=== PATIENT | female | born 1995 | race Caucasian/White ===

== ENCOUNTER 2022-01-21 11:34 | Outpatient (CLI) | payer OTHER, SELFPAY ==
--- NOTE | ~2022-01-21 | US_ITS ---
EXAMINATION: US breast LT limited, US breast RT complete HISTORY: Palpable lump of the lower-outer quadrant of the left breast and diffuse cystic mastopathy o f the right breast. TECHNIQUE: Limited left breast ultrasound is performed in the lower outer quadrant and complete right breast ultrasound including all four quadrants and the subareolar right breast is also performed. FINDINGS: There is a 7 mm x 3 mm oval, circumscribed, parallel, hypoechoic mass with no posterior fea tures or internal vascularity at the 5:00 location of the left breast near the nipple corresponding t o the palpable abnormality of concern. No suspicious cystic or solid mass is identified in the right breast. IMPRESSION: 1. Probably benign left breast mass. Follow-up targeted left breast ultrasound in six months is recom mended. 2. No specific sonographic correlate is identified for the reported patient's right breast pain. Furt her evaluation at this time should be based on clinical assessment. Continued follow-up physical exam ination is recommended. BI-RADS category 3, probably benign findings. Reviewed, dictated and finalized at location A. IMPRESSION: 1. Probably benign left breast mass. Follow-up targeted left breast ultrasound in six months is recommended. 2. No specific sonographic correlate is identified for the reported patient's r ight breast pain. Further evaluation at this time should be based on clinical a ssessment. Continued follow-up physical examination is recommended. BI-RADS category 3, probably benign findings.
== END 2022-01-21 11:35 | disposition home or self-care (01) ==
LOC: ANHIMG 11:37
PROVIDERS: PCP Family Medicine; Visit Provider Nurse Practitioner Obstetrics & Gynecology
DX: N60.11 Diffuse cystic mastopathy of right breast (principal); N63.23 Unspecified lump in the left breast, lower outer quadrant
CPT/HCPCS: 76641; 76642

== ENCOUNTER 2022-06-16 08:15 | Outpatient (RCR) | payer OTHER, SELFPAY ==
--- NOTE | 2022-05-28 16:13 | PTOPEVAL ---
PHYSICAL THERAPY EVALUATION AND PLAN OF CARE Thank you for referring Fani Helms to [facility].? The patient is scheduled to be seen for therapy 2-3X/month for 2months. Please review, sign, date and return this plan of care JERRY. I agree with and certify that the following plan of care is medically necessary. Referring Physician Date Attending Provider: Ana María Streeter, [employer] Diagnosis incontinence, pain with intercourse Onset 3 years Subjective Information pain with intercourse with Query Text:As Reported By Patient/ penetration: pain with periods Family of in the perineum and rectum with her last period but otherwise generally just cramps in back and lower abdomen. states that with penetration she feels like her cervix is being pushed up and there is just a general shooting pain. There is no pain when she is in control and on top. She reports that when her partner has control and is on top or is in doggy style there is a significant amount of pain. Pain is not generally on one side or the other. has history of right labral tear in hip. non-surgical Self Report Pain Assessment Back Reported Pain Level 5 Pain Description Aching Pain Frequency Chronic,Continuous Pain Aggravating Factors Walking,Weight Bearing/ Standing Pain Score Pain Score 5: Self Report Interventions Used Interventions Used By Clinicians Mobilization,Manual Therapy Techniques Lower Extremity Range of Motion General Lower Extremity Range of Motion Gross Lower Extremity Range of Motion positive AMNA bilaterally Comments with right worse than left Lower Extremity Muscle Strength Testing Hip Strength Right Hip Flexion Strength 4- Good - Hip Abduction Strength 4+ Good + Hip Medial Rotation Strength 4 Good Hip Lateral Rotation Strength 4- Good - Left Hip Flexion Strength 5 Normal Hip Abduction Strength 5 Normal Hip Medial Rotation Strength 5 Normal Hip Lateral Rotation Strength 5 Normal Knee Strength Bilateral Knee Flexion Strength 5 Normal Knee Extension Strength 5 Normal Muscle Length Testing Muscle Length Testing Piriformis w/Hip Flexion >9
--- NOTE | 2022-06-16 09:51 | PTOPEVAL ---
PHYSICAL THERAPY DISCHARGE NOTE Thank you for referring Fani Hlems to [facility]. Please review, sign, date and return this plan of care JERRY. I agree with and certify that the following plan of care is medically necessary. Referring Physician Date Attending Provider: Ana María Streeter, [employer] Diagnosis incontinence, pain with intercourse Onset 3 years Subjective Information states that overall she is Query Text:As Reported By Patient/ feeling better. States she is Family leaking less and requiring less underwear changes. States that she finds she does not leak when picking up something from the floor and she is able to contract pelvic floor quickly enough to decrease/ stop leakage while sneezing. States that pain with intercourse has decreased stating that initial penetration is not always painful. Does experience some pain with repetition or over time, but does believe the symptoms to be reduced. Self Report Pain Assessment Back Reported Pain Level 2 Pain Description Aching Lower Extremity Range of Motion General Lower Extremity Range of Motion Gross Lower Extremity Range of Motion positive AMNA bilaterally Comments with right worse than left Lower Extremity Muscle Strength Testing Hip Strength Right Hip Flexion Strength 4+ Good + Hip Abduction Strength 4+ Good + Hip Medial Rotation Strength 5 Normal Hip Lateral Rotation Strength 4 Good Left Hip Flexion Strength 5 Normal Hip Abduction Strength 5 Normal Hip Medial Rotation Strength 5 Normal Hip Lateral Rotation Strength 5 Normal Knee Strength Bilateral Knee Flexion Strength 5 Normal Knee Extension Strength 5 Normal Muscle Length Testing Muscle Length Testing Piriformis w/Hip Flexion >90 Degrees (R) Moderate Tightness,(L) Moderate Tightness Palpation Assessment Palpation Palpation improved overall tissue quality with decreased sensitivity; PT Clinical Summary Fani is a 26 yo female presenting to outpatient physical therapy with c/o pain with intercourse and mixed urinary incontinence. After
== END 2022-08-11 10:19 | disposition home or self-care (01) ==
LOC: ANHPT 08:15
PROVIDERS: PCP Family Medicine; Visit Provider Nurse Practitioner
DX: N94.10 Unspecified dyspareunia (principal)
CPT/HCPCS: 97110; 97112; 97163

== ENCOUNTER 2025-04-20 00:22 | Emergency (ER) | payer BC, MEDICAID, SELFPAY ==
--- NOTE | ~2025-04-20 | XR_ITS ---
Right Knee Technique: AP, lateral, and oblique views were obtained. Clinical History: Pain Findings: No fracture or dislocation is seen. Osseous alignment is anatomic. Joint spaces are preserv ed without degenerative or erosive change. Soft tissues are unremarkable. No joint effusion is seen. Impression: Unremarkable right knee radiographs. Reviewed, dictated and finalized at location . Impression: Unremarkable right knee radiographs.
--- OUTSIDE RECORDS SUMMARY | 2025-04-20 00:25 | XMS_ITS | Continuity of Care Document ---
Author Name [facility] Organization [facility] Care Team Providers Care Marriage And Family Teacher Name Role Phone [facility] Unavailable Unavailable Problems Combined list of problems from Department of Defense and Veterans Affairs facilities. It does not include entries that were removed or entered in error. Problem Status Onset Date Problem Type Date of Resolution Comments Source Adjustment disorder with mixed anxiety and depressed mood Active Condition [facility] Anxiety ([facility] [id number]) Active Condition [facility] Contraception status Active Condition Jan 18, 2025 Entered By: LAILA COHEN Comment: paragard 11/2024 [facility] Hip pain Active Condition [facility] Low Back Pain (SCT 417802304) Active Condition [facility] Migraine with Aura (SCT 2439697) Active Condition [facility] Pain of breast Active Condition [facility] Tinnitus ([facility] [id number]) Active Condition [facility] Episodic tension-type headache, not intractable Active Condition [facility] control method - contraceptive vaginal ring Active Condition [facility] BREAST LUMP OR MASS RIGHT Active Condition [facility] BURSITIS TROCHANTERIC Active Condition [facility] SNAPPING HIP SYNDROME Active Condition [facility] visit for: issue repeat prescription Inactive Condition [facility] Need For Vaccination Poliomyelitis Inactivated Inactive Condition [facility] Need For Vaccination Yellow Fever Inactive Condition [facility] Need For Vaccination MMR Inactive Condition [facility] Vaccines Prophylactic Need Against Influenza Inactive Condition [facility] MULTIPLE BLISTERS Inactive Condition [facility] visit for: laboratory Inactive Condition [facility] Gynecologic Services Contraceptive General Counseling Active Condition [facility] Patient Counseling: Inquiry & Counseling Active Condition [facility] visit for: new patient eye exam Inactive Condition [facility] Vaccines Prophylactic Need Against Combinations Of Diseases Inactive Condition [facility] visit for: screening exam pulmonary tuberculosis Inactive Condition [facility] Vaccines Prophylactic Need Against Bacterial Diseases Meningococcal Inactive Condition [facility] Vaccines Prophylactic Need Against Viral Diseases Inactive Condition [facility] Need For Vaccination Hepatitis A And Hepatitis B Inactive Condition [facility] Need For Prophylactic Antibiotics Inactive Condition [facility] Diagnosis: ICD-10-CM F41.9 Anxiety disorder, unspecified Active Diagnosis [facility] Diagnosis: ICD-10-CM G43.109 Migraine with aura, not intractable, w/o status migrainosus Active Diagnosis [facility] Diagnosis: ICD-10-CM F41.1 Generalized anxiety disorder Active Diagnosis [facility] Diagnosis: ICD-10-CM F43.23 Adjustment disorder with mixed anxiety and depressed mood Active Diagnosis [facility] Medications Combined list of outpatient medications from Department of Defense and [facility] Affairs facilities.Medications provided include 1) outpatient medications from the last 15 months, and 2) patient-reported medications. Medication Details Route Status Patient Instructions Prescription Expires Prescription Number Last Dispense Date Ordering Provider Order Date Order Qty Source busPIRone (U/D) 15 MG ORAL TAB TAKE ONE-HALF TABLET BY MOUTH THREE TIMES A DAY NEEDED DO NOT TAKE WITH GRAPEFRU IT JUICE. Active 04/22/2025 [id number] LETICIA WEIR 2023 45 [facility] BUSPIRONE HCL 15MG TAB TAKE ONE-HALF TABLET BY MOUTH THREE TIMES A DAY NEEDED DO NOT TAKE WITH GRAPEFRU IT JUICE. ORAL DISCONT INUED BY PROVIDE R 04/22/2025 [id number] 4 CICI WEIR 2023 45 [facility] FLUoxetine (U/D) 10 MG ORAL CAP TAKE THREE CAPSULES BY MOUTH ONCE A DAY Active 04/22/2025 [id number] LETICIA WEIR 2023 90 [facility] FLUOXETINE HCL 10MG CAP TAKE THREE CAPSULES BY MOUTH ONCE A DAY ORAL DISCONT INUED BY PROVIDE R 04/22/2025 [id number] CICI WEIR DESTIN 2023 90 [facility] MAGNESIUM OXIDE 400MG TAB TAKE ONE TABLET BY MOUTH ONCE A DAY FOR MIGRAINE PREVENTI ON ORAL DISCONT INUED BY PROVIDE R 08/11/2025 [id number] 4 GEOVANI MCDUFFIE 2023 120 [facility] TRAZODONE HCL 50MG TAB TAKE ONE-HALF TABLET BY MOUTH AT BEDTIME FOR INSOMNIA ORAL DISCONT INUED BY PROVIDE R 04/22/2025 [id number] 4 URVASHI-CICI IRWIN DESTIN 2023 15 [facility] Trazodone Hydrochlori de (Desyrel Eq.) Tablet 50 mg Oral TAKE ONE-HALF TABLET BY MOUTH AT BEDTIME FOR INSOMNIA Active 04/22/2025 [id number] 4 BERTOADEBO-LETICIA IRWIN DESTIN 2023 15 [facility] VENLAFAXINE HCL 37.5MG 24HR CAP,SA TAKE ONE CAPSULE BY MOUTH ONCE A DAY FOR 7 DAYS, THEN TAKE TWO CAPSULES ONCE A DAY WITH FOOD. DO NOT ABRUPTLY DISCONTI NUE MEDICATI ON. ORAL DISCONT INUED (EDIT) 03/08/2025 [id number] 5 GEOVANI MCDUFFIE 2024 173 [facility] VENLAFAXINE HCL 75MG 24HR CAP,SA TAKE ONE CAPSULE BY MOUTH ONCE A DAY FOR MIGRAINE PREVENTI ON WITH FOOD. DO NOT ABRUPTLY DISCONTI NUE MEDICATI ON. ORAL ACTIVE 02/14/2026 [id number] 5 GEOVANI MCDUFFIE 2024 90 [facility] ZOLMITRIPTA N 2.5MG TAB,PACKAGE ,6 TAKE TWO TABLETS BY MOUTH ONE-TIME FOR MIGRAINE HEADACHE TAKE AT ONSET OF HEADACHE ; MAY REPEAT IN 2 HRS IF NEEDED (DO NOT EXCEED 10MG IN 24 HOUR PERIOD) ORAL ACTIVE 08/11/2025 [id number] 4 GEOVANI MCDUFFIE 2023 2 [facility] Allergies, Adverse Reactions, Alerts Combined list of allergies from Department of Defense and Veterans Affairs facilities. It does not include entries that were removed or entered in error. Substance Category Reaction Severity Reaction type Status Date Reported Comments Source No Known Allergies Drug allergy (disorder) active 06/10/2016 [facility] [place] Immunizations Combined list of available immunizations from the Department of Defense and Veterans Affairs facilities. Immunization Series Date Given Administered By Site Reaction Lot Number CVX Code Drug Lifeguard Status Comments Source INFLUENZA, UNSPECIFIED FORMULATION 1 2023 88 complet ed HISTORICA L INFORMATI ON - FROM OTHER [facility], [facility] INFLUENZA, INJECTABLE, QUADRIVALENT, PRESERVATIVE FREE 2 2020 150 complet ed HISTORICA L INFORMATI ON - FROM OTHER [facility], [facility] INFLUENZA, UNSPECIFIED FORMULATION 1 2020 88 complet ed HISTORICA L INFORMATI ON - FROM OTHER [facility], [facility] INFLUENZA, INJECTABLE, QUADRIVALENT, PRESERVATIVE FREE 2020 150 complet ed [facility] COVID-19 (MODERNA), MRNA, LNP-S, PF, 100 MCG/0.5 ML DOSE 2 2020 207 complet ed [facility] COVID-19 (MODERNA), MRNA, LNP-S, PF, 100 MCG/0.5 ML DOSE 1 2020 207 complet ed [facility] TDAP 8 2018 115 complet ed HISTORICA L INFORMATI ON - FROM OTHER [facility], [facility] INFLUENZA, INJECTABLE, QUADRIVALENT, PRESERVATIVE FREE 2 2018 150 complet ed HISTORICA L INFORMATI ON - FROM OTHER REGISTRY, [facility] INFLUENZA, UNSPECIFIED FORMULATION 1 2018 88 complet ed HISTORICA L INFORMATI ON - FROM OTHER [facility], [facility] INFLUENZA, INJECTABLE, QUADRIVALENT, PRESERVATIVE FREE 1 2017 150 complet ed HISTORICA L INFORMATI ON - FROM OTHER [facility], [facility] anthrax vaccine 5 2017 [id number] 24 [facility] complet ed anthrax vaccine DoD Influenza, seasonal, injectable 0 2016 [id number] 141 [facility] (SKB) complet ed Influenza , seasonal, injectabl e DoD influenza, injectable, quadrivalent, contains preservative 1 2016 CANDIS MONTEJO [id number] 158 [facility] ([place]) complet ed influenza , injectabl e, quadrival ent, contains preservat ilia DoD MMR 3 2016 03 complet ed HISTORICA L INFORMATI ON - FROM OTHER [facility] measles, mumps and rubella virus vaccine 2 2016 [id number] 03 Merck (MSD) complet ed measles, mumps and rubella virus vaccine DoD anthrax vaccine 4 2016 [id number] 24 [facility] [employer] Lottie ([facility]) complet ed anthrax vaccine DoD typhoid Vi capsular polysaccharid e vaccine 2 2016 [id number] 101 Sanofi Pasteur (PMC) complet ed typhoid Vi capsular polysacch aride vaccine DoD Slovenian Encephalitis vaccine for intramuscular administratio n 3 2016 [id number] 134 Valneva (ZHAO) complet ed Slovenian Encephali tis vaccine for intramusc ular administr ation DoD Influenza, seasonal, injectable, preservative free 0 2015 [id number] 140 Seq[employer] (SEQ) comple t ed Influenza , seasonal, injectabl e, preservat ilia free DoD VARICELLA 2 2015 21 complet ed HISTORICA L INFORMATI ON - FROM OTHER [facility], [facility] varicella virus vaccine 0 2015 21 () Not Given varicella virus vaccine [facility] DTAP, UNSPECIFIED FORMULATION 7 2014 107 complet ed HISTORICA L INFORMATI ON - FROM OTHER [facility] tetanus toxoid, reduced diphtheria toxoid, and acellular pertu is vaccine, adsorbed 1 2014 HARLAN GUZMAN [id number] 115 [facility] ([place]) complet ed tetanus toxoid, reduced diphtheri a toxoid, and acellular pertussis vaccine, adsorbed DoD Influenza, injectable, quadrivalent, preservative free 0 2014 UNK 150 (TRN) complet ed Influenza , injectabl e, quadrival ent, preservat ilia free DoD influenza, injectable, quadrivalent, contains preservative 1 2014 HARLAN GUZMAN [id number] 158 [facility] ([place]B) complet ed influenza , injectabl e, quadrival ent, contains preservat ilia DoD anthrax vaccine 3 2014 [id number] 24 [facility] ([facility]) complet ed anthrax vaccine DoD anthrax vaccine 2 2013 [id number] 24 [facility] ([facility]) complet ed anthrax vaccine DoD Slovenian Encephalitis vaccine for intramuscular administratio n 2 2013 [id number] 134 [employer] [place] (INT) complet ed [place] Encephali tis vaccine for intramusc ular administr ation DoD Influenza, injectable, quadrivalent, preservative free 0 2013 [id number] 150 [facility] ([facility]) complet ed Influenza , injectabl e, quadrival ent, preservat ilia free DoD TYPHOID, UNSPECIFIED FORMULATION 2013 91 complet ed HISTORICA L INFORMATI ON - FROM OTHER REGISTRY, [facility] anthrax vaccine 1 2013 [id number] 24 [facility] ([facility]) complet ed anthrax vaccine DoD vaccinia (smallpox) vaccine 0 2013 [id number] 75 (GILBERT) complet ed vaccinia (smallpox ) vaccine DoD typhoid Vi capsular polysaccharid e vaccine 1 2013 [id number] 101 [employer] ([facility]) complet ed typhoid Vi capsular polysacch aride vaccine DoD hepatitis A and hepatitis B vaccine 3 2013 [id number] 104 [facility] ([facility]) complet ed hepatitis A and hepatitis B vaccine DoD Slovenian Encephalitis vaccine for intramuscular administratio n 1 2013 [id number] 134 [employer] [place] (INT) complet ed [place] Encephali tis vaccine for intramusc ular administr ation [facility] HEP A-HEP B 4 2012 104 complet ed HISTORICA L INFORMATI ON - FROM OTHER REGISTRY, [facility] MMRV 1 2012 94 complet ed HISTORICA L INFORMATI ON - FROM OTHER REGISTRY, [facility] measles, mumps and rubella virus vaccine 1 2012 SADIE CRAIN [id number] 03 Merck (MSD) complet ed measles, mumps and rubella virus vaccine DoD poliovirus vaccine, inactivated 1 2012 SADIE CRAIN [id number] 10 Sanofi Pasteur ([facility]) complet ed polioviru s vaccine, inactivat ed DoD yellow fever vaccine 1 2012 TAE CRAINADOR [id number] 37 Sanofi Pasteur (PMC) complet ed yellow fever vaccine DoD hepatitis A and hepatitis B vaccine 2 2012 TAE CRAINADOR [id number] 104 [facility] ([facility] complet ed hepatitis A and hepatitis B vaccine DoD influenza virus vaccine, live, attenuated, for intranasal use 1 2012 TAE CRAINADOR [id number] 111 [employer], Bloxy. (MED) complet ed influenza virus vaccine, live, attenuate d, for intranasa l use DoD HEP A-HEP B 4 2012 104 complet ed HISTORICA L INFORMATI ON - FROM OTHER REGISTRY, [facility] MENINGOCOCCAL B, OMV 1 2012 163 complet ed HISTORICA L INFORMATI ON - FROM OTHER REGISTRY, [facility] tuberculin skin test; purified protein derivative solution, intradermal 1 2012 BERENICE ORTIZ [id number] 96 Other (OT) complet ed tuberculi n skin test; purified protein derivativ e solution, intraderm al DoD hepatitis A and hepatitis B vaccine 2012 BERENICE ORTIZ [id number] 104 [employer] ([facility]) complet ed hepatitis A and hepatitis B vaccine DoD meningococcal polysaccharid e (groups A, C, Y and W-135) diphtheria toxoid conjugate vaccine (MCV4P) 1 2012 BERENICE ORTIZ [id number] 114 Sanofi Pasteur (PMC) complet ed meningoco ccal polysacch aride (groups A, C, Y and W-135) diphtheri a toxoid conjugate vaccine (MCV4P) DoD tetanus toxoid, reduced diphtheria toxoid, and acellular pertu is vaccine, adsorbed 2012 BERENICE ORTIZ [id number] 115 [employer] ([place]) complet ed tetanus toxoid, reduced diphtheri a toxoid, and acellular pertussis vaccine, adsorbed DoD Adenovirus, type 4 and type 7, live, oral 1 2012 BERENICE ORTIZ [id number] 143 [facility] ([facility]) complet ed Adenoviru s, type 4 and type 7, live, oral DoD TDAP 6 2007 115 complet ed HISTORICA L INFORMATI ON - FROM OTHER REGISTRY, [facility] HPV, QUADRIVALENT 3 2007 62 complet ed HISTORICA L INFORMATI ON - FROM OTHER REGISTRY, [facility] HPV, QUADRIVALENT 2 2006 62 complet ed HISTORICA L INFORMATI ON - FROM OTHER REGISTRY, [facility] HPV, QUADRIVALENT 1 2006 62 complet ed HISTORICA L INFORMATI ON - FROM OTHER REGISTRY, [facility] MENINGOCOCCAL C CONJUGATE 2006 103 complet ed HISTORICA L INFORMATI ON - FROM OTHER REGISTRY, [facility] DTAP 5 1998 20 complet ed HISTORICA L INFORMATI ON - FROM OTHER REGISTRY, [facility] MMR 2 1998 03 complet ed HISTORICA L INFORMATI ON - FROM OTHER REGISTRY, [facility] TRIVALENT OPV 4 1998 02 complet ed HISTORICA L INFORMATI ON - FROM OTHER REGISTRY, [facility] DTP-HIB 4 1994 22 complet ed HISTORICA L INFORMATI ON - FROM OTHER REGISTRY, [facility] MMR 1 1994 03 complet ed HISTORICA L INFORMATI ON - FROM OTHER REGISTRY, [facility] TRIVALENT OPV 3 1994 02 complet ed HISTORICA L INFORMATI ON - FROM OTHER REGISTRY, [facility] HEP B, ADOLESCENT OR PEDIATRIC 3 1994 08 complet ed HISTORICA L INFORMATI ON - FROM OTHER REGISTRY, [facility] DTP-HIB 3 1994 22 complet ed HISTORICA L INFORMATI ON - FROM OTHER REGISTRY, [facility] DTP-HIB 2 1994 22 complet ed HISTORICA L INFORMATI ON - FROM OTHER REGISTRY, [facility] TRIVALENT OPV 2 1994 02 complet ed HISTORICA L INFORMATI ON - FROM OTHER [facility]RY, [facility] DTP-HIB 1 1993 22 complet ed HISTORICA L INFORMATI ON - FROM OTHER REGISTRY, [facility] HEP B, ADOLESCENT OR PEDIATRIC 2 1993 08 complet ed HISTORICA L INFORMATI ON - FROM OTHER REGISTRY, [facility] TRIVALENT OPV 1 1993 02 complet ed HISTORICA L INFORMATI ON - FROM OTHER REGISTRY, [facility] HEP B, ADOLESCENT OR PEDIATRIC 1 1993 08 complet ed HISTORICA L INFORMATI ON - FROM OTHER REGISTRY, [facility] Results Combined list of recent chemistry, hematology and other laboratory results from Department of Defense and Veterans Affairs, ranging from 15 months to all on record, depending upon the facility. Order Name Results Value Reference Range Date Interpretation Specimen Comments Source LIPID PANEL (STL) CHOLESTEROL [MASS/VOLUM E] IN SERUM OR PLASMA 124 mg/dL 0 - 200 01/18 Specimen Type: PLASMA Comment: No hemolysis noted. Ordering Provider: KASSIDY COHEN Report Released Date/Time: Jan 18, 2025 09:05 AM Reporting Lab: [facility] [address] [facility] [phone] Performing Lab: [facility] [address] [place] [phone] [facility] LIPID PANEL (STL) TRIGLYCERID E [MASS/VOLUM E] IN SERUM OR PLASMA 35 mg/dL 0 - 150 01/18 Specimen Type: PLASMA Comment: No hemolysis noted. Ordering Provider: KASSIDY COHEN Report Released Date/Time: Jan 18, 2025 09:05 AM Reporting Lab: [facility] [address] [facility] [phone] Performing Lab: [facility] [address] [place] [phone] [facility] LIPID PANEL (STL) CHOLESTEROL IN LDL [MASS/VOLUM E] IN SERUM OR PLASMA BY CALCULATION 71 mg/dL 01/18 Specimen Type: PLASMA Comment: No hemolysis noted. Ordering Provider: KASSIDY COHEN Report Released Date/Time: Jan 18, 2025 09:05 AM Reporting Lab: [facility] [address] [place] [phone] Performing Lab: [facility] [address] [place] [phone] [facility] LIPID PANEL (STL) CHOLESTEROL IN HDL [MASS/VOLUM E] IN SERUM OR PLASMA 46 mg/dL 40 01/18 Specimen Type: PLASMA Comment: No hemolysis noted. Ordering Provider: KASSIDY COHEN Report Released Date/Time: Jan 18, 2025 09:05 AM Reporting Lab: [facility] [address] [place] [phone] Performing Lab: [facility] [address] [place] [phone] [facility] COMPREHEN SIVE METABOLIC PANEL CREATININE [MASS/VOLUM E] IN SERUM OR PLASMA 0.72 mg/dL 0.6 - 1.1 01/18 Specimen Type: PLASMA Comment: No hemolysis noted. Ordering Provider: KASSIDY COHEN Report Released Date/Time: Jan 18, 2025 09:05 AM Reporting Lab: [facility] [address] [facility] [phone] Performing Lab: [facility] [address] [place] [phone] [facility] COMPREHEN SIVE METABOLIC PANEL UREA NITROGEN [MASS/VOLUM E] IN SERUM OR PLASMA 16.6 mg/dL 9.0 - 25.0 01/18 Specimen Type: PLASMA Comment: No hemolysis noted. Ordering Provider: COHEN,ARM ELY A Report Released Date/Time: Jan 18, 2025 09:05 AM Reporting Lab: [facility] [address] [facility] [phone] Performing Lab: [facility] [address] [facility] [phone] [facility] COMPREHEN SIVE METABOLIC PANEL GLUCOSE [MASS/VOLUM E] IN SERUM OR PLASMA 83 mg/dL 72 - 99 01/18 Specimen Type: PLASMA Comment: No hemolysis noted. Ordering Provider: KASSIDY COHEN A Report Released Date/Time: Jan 18, 2025 09:05 AM Reporting Lab: [facility] [address] [facility] [phone] Performing Lab: [facility] [address] [facility] [phone] [facility] COMPREHEN SIVE METABOLIC PANEL SODIUM [MOLES/VOLU ME] IN SERUM OR PLASMA 139 meq/L 136 - 145 01/18 Specimen Type: PLASMA Comment: No hemolysis noted. Ordering Provider: KASSIDY COHEN A Report Released Date/Time: Jan 18, 2025 09:05 AM Reporting Lab: [facility] [address] [facility] [phone] Performing Lab: [facility] [address] [place] [phone] [facility] COMPREHEN SIVE METABOLIC PANEL POTASSIUM [MOLES/VOLU ME] IN SERUM OR PLASMA 4.4 meq/L 3.5 - 5 01/18 Specimen Type: PLASMA Comment: No hemolysis noted. Ordering Provider: KASSIDY COHEN A Report Released Date/Time: Jan 18, 2025 09:05 AM Reporting Lab: [facility] [address] [facility] [phone] Performing Lab: [facility] [address] [facility] [phone] [facility] COMPREHEN SIVE METABOLIC PANEL CHLORIDE [MOLES/VOLU ME] IN SERUM OR PLASMA 106 meq/L 98 - 107 01/18 Specimen Type: PLASMA Comment: No hemolysis noted. Ordering Provider: KASSIDY COHEN A Report Released Date/Time: Jan 18, 2025 09:05 AM Reporting Lab: [facility] [address] [facility] [phone] Performing Lab: [facility] [address] [facility] [phone] [facility] COMPREHEN SIVE METABOLIC PANEL CARBON DIOXIDE, TOTAL [MOLES/VOLU ME] IN SERUM OR PLASMA 21 meq/L 22 - 31 01/18 L Specimen Type: PLASMA Comment: No hemolysis noted. Ordering Provider: KASSIDY COHEN A Report Released Date/Time: Jan 18, 2025 09:05 AM Reporting Lab: [facility] [address] [facility] [phone] Performing Lab: [facility] [address] [facility] [phone] [place] [address] COMPREHEN SIVE METABOLIC PANEL CALCIUM [MASS/VOLUM E] IN SERUM OR PLASMA 8.9 mg/dL 8.4 - 10.4 01/18 Specimen Type: PLASMA Comment: No hemolysis noted. Ordering Provider: KASSIDY COHEN A Report Released Date/Time: Jan 18, 2025 09:05 AM Reporting Lab: [facility] [address] [facility] [phone] Performing Lab: [facility] [address] [facility] [phone] [facility] COMPREHEN SIVE METABOLIC PANEL PROTEIN [MASS/VOLUM E] IN SERUM OR PLASMA 7.2 g/dL 6 - 8.6 01/18 Specimen Type: PLASMA Comment: No hemolysis noted. Ordering Provider: KASSIDY COHEN A Report Released Date/Time: Jan 18, 2025 09:05 AM Reporting Lab: [facility] [address] [facility] [phone] Performing Lab: [facility] [address] [facility] [phone] [facility] COMPREHEN SIVE METABOLIC PANEL ALBUMIN [MASS/VOLUM E] IN SERUM OR PLASMA 4.2 g/dL 3.4 - 5 01/18 Specimen Type: PLASMA Comment: No hemolysis noted. Ordering Provider: KASSIDY COHEN Report Released Date/Time: Jan 18, 2025 09:05 AM Reporting Lab: [facility] [address] [facility] [phone] Performing Lab: [facility] [address] [place] [address] COMPREHEN SIVE METABOLIC PANEL BILIRUBIN.T OTAL [MASS/VOLUM E] IN SERUM OR PLASMA 0.5 mg/dL 0.2 - 1.2 01/18 Specimen Type: PLASMA Comment: No hemolysis noted. Ordering Provider: KASSIDY COHEN Report Released Date/Time: Jan 18, 2025 09:05 AM Reporting Lab: [address] [address] Performing Lab: [facility] [address] [place] [phone] [place] [address] COMPREHEN SIVE METABOLIC PANEL ALKALINE PHOSPHATASE [ENZYMATIC ACTIVITY/VO LUME] IN SERUM OR PLASMA 57 U/L 40 - 150 01/18 Specimen Type: PLASMA Comment: No hemolysis noted. Ordering Provider: KASSIDY COHEN Report Released Date/Time: Jan 18, 2025 09:05 AM Reporting Lab: [address] [address] Performing Lab: [facility] [address] [place] [phone] [place] [address] COMPREHEN SIVE METABOLIC PANEL ASPARTATE AMINOTRANSF ERASE [ENZYMATIC ACTIVITY/VO LUME] IN SERUM OR PLASMA 55 U/L 5 - 34 01/18 H Specimen Type: PLASMA Comment: No hemolysis noted. Ordering Provider: KASSIDY COHEN Report Released Date/Time: Jan 18, 2025 09:05 AM Reporting Lab: [facility] DIVISION [address] [place] [phone] Performing Lab: [address] [place] [phone] [place] [address] COMPREHEN SIVE METABOLIC PANEL ALANINE AMINOTRANSF ERASE [ENZYMATIC ACTIVITY/VO LUME] IN SERUM OR PLASMA 19 U/L 8 - 40 01/18 Specimen Type: PLASMA Comment: No hemolysis noted. Ordering Provider: KASSIDY COHEN Report Released Date/Time: Jan 18, 2025 09:05 AM Reporting Lab: [facility] [address] [place] [address] Performing Lab: [facility] [address] [place] [address] COMPREHEN SIVE METABOLIC PANEL GLOMERULAR FILTRATION RATE/1.73 SQ M.PREDICTED [VOLUME RATE/AREA] IN SERUM, PLASMA OR BLOOD BY CREATININE- BASED FORMULA (CKD-EPI 2020) 115.3 60 01/18 Specimen Type: PLASMA Comment: No hemolysis noted. Ordering Provider: KASSIDY COHEN A Report Released Date/Time: Jan 18, 2025 09:05 AM Reporting Lab: [facility] [address] [place] [phone] Performing Lab: [address] HGA1C HEMOGLOBIN A1C/HEMOGLO BIN.TOTAL IN BLOOD 5.4 4.0 - 6.0 01/18 Specimen Type: BLOOD No comment entered. Ordering Provider: KASSDIY COHEN A Report Released Date/Time: Jan 18, 2025 09:05 AM Reporting Lab: [facility] [address] [facility] [phone] Performing Lab: [facility] [address] [place] [phone] TSH W/ REFLEX FT4 (STL) THYROTROPIN [UNITS/VOLU ME] IN SERUM OR PLASMA 1.373 u[IU]/mL 0.47 - 5 01/18 Specimen Type: PLASMA No comment entered. Ordering Provider: KASSIDY COHEN A Report Released Date/Time: Jan 18, 2025 09:05 AM Reporting Lab: [facility] [address] [facility] [phone] Performing Lab: [facility] [address] [place] [phone] [place] [address] CBC LEUKOCYTES [#/VOLUME] IN BLOOD BY AUTOMATED COUNT 4.5 10*3/uL 3.6 - 11.2 01/18 Specimen Type: BLOOD No comment entered. Ordering Provider: KASSIDY COHEN A Report Released Date/Time: Jan 18, 2025 09:05 AM Reporting Lab: [facility] [phone] Performing Lab: [facility] [address] [place] [address] [phone] [place] [address] CBC ERYTHROCYTE S [#/VOLUME] IN BLOOD BY AUTOMATED COUNT 3.97 10*6/uL 3.60 - 5.00 01/18 Specimen Type: BLOOD No comment entered. Ordering Provider: KASSIDY COHEN A Report Released Date/Time: Jan 18, 2025 09:05 AM Reporting Lab: [facility] [address] [place] [phone] Performing Lab: [facility] [phone] [place] [address] CBC HEMOGLOBIN [MASS/VOLUM E] IN BLOOD 12.1 g/dL 11.0 - 14.9 01/18 Specimen Type: BLOOD No comment entered. Ordering Provider: KASSIDY COHEN Report Released Date/Time: Jan 18, 2025 09:05 AM Reporting Lab: [facility] [phone] Performing Lab: [facility] [address] [place] [address] [phone] [place] [address] CBC HEMATOCRIT [VOLUME FRACTION] OF BLOOD 36.1 32.6 - 43.4 01/18 Specimen Type: BLOOD No comment entered. Ordering Provider: KASSIDY COHEN A Report Released Date/Time: Jan 18, 2025 09:05 AM Reporting Lab: [facility] [address] [facility] [phone] Performing Lab: [facility] [address] [place] [phone] [facility] CBC MCV [ENTITIC VOLUME] BY AUTOMATED COUNT 90.9 fL 80.0 - 100.0 01/18 Specimen Type: BLOOD No comment entered. Ordering Provider: KASSIDY COHEN Report Released Date/Time: Jan 18, 2025 09:05 AM Reporting Lab: [facility] [address] [place] [phone] Performing Lab: [facility] [address] [place] [address] [phone] [place] [address] CBC MCH [ENTITIC MASS] BY AUTOMATED COUNT 30.5 pg 27.0 - 34.0 01/18 Specimen Type: BLOOD No comment entered. Ordering Provider: KASSIDY COHEN Report Released Date/Time: Jan 18, 2025 09:05 AM Reporting Lab: [facility] [address] [place] [phone] Performing Lab: [facility] [address] [place] [phone] [facility] CBC MCHC [MASS/VOLUM E] BY AUTOMATED COUNT 33.5 g/dL 33.0 - 36.0 01/18 Specimen Type: BLOOD No comment entered. Ordering Provider: KASSIDY COHEN Report Released Date/Time: Jan 18, 2025 09:05 AM Reporting Lab: [facility] [address] [facility] [phone] Performing Lab: [facility] [address] [place] [phone] [facility] CBC PLATELETS [#/VOLUME] IN BLOOD BY AUTOMATED COUNT 275 10*3/uL 150 - 400 01/18 Specimen Type: BLOOD No comment entered. Ordering Provider: KASSIDY COHEN Report Released Date/Time: Jan 18, 2025 09:05 AM Reporting Lab: [facility] [address] [facility] [phone] Performing Lab: [facility] [address] [facility] [phone] [facility] CBC PLATELET MEAN VOLUME [ENTITIC VOLUME] IN BLOOD BY AUTOMATED COUNT 11.4 fL 7.5 - 11.2 01/18 H Specimen Type: BLOOD No comment entered. Ordering Provider: KASSIDY COHEN A Report Released Date/Time: Jan 18, 2025 09:05 AM Reporting Lab: [facility] [address] [facility] [phone] Performing Lab: [facility] [address] [facility] [phone] [facility] CBC ERYTHROCYTE DISTRIBUTIO N WIDTH [RATIO] BY AUTOMATED COUNT 12.5 11.8 - 15.1 01/18 Specimen Type: BLOOD No comment entered. Ordering Provider: KASSIDY COHEN A Report Released Date/Time: Jan 18, 2025 09:05 AM Reporting Lab: [facility] [address] [facility] [phone] Performing Lab: [facility] [address] [facility] [phone] [facility] CBC LYMPHOCYTES /100 LEUKOCYTES IN BLOOD BY AUTOMATED COUNT 42 01/18 Specimen Type: BLOOD No comment entered. Ordering Provider: KASSIDY COHEN A Report Released Date/Time: Jan 18, 2025 09:05 AM Reporting Lab: [facility] [address] [facility] [phone] Performing Lab: [facility] [address] [facility] [phone] [facility] CBC MONOCYTES/1 00 LEUKOCYTES IN BLOOD BY AUTOMATED COUNT 10 01/18 Specimen Type: BLOOD No comment entered. Ordering Provider: KASSIDY COHEN A Report Released Date/Time: Jan 18, 2025 09:05 AM Reporting Lab: [facility] [address] [facility] [phone] Performing Lab: [facility] [address] [facility] [phone] [facility] CBC NEUTROPHILS /100 LEUKOCYTES IN BLOOD BY AUTOMATED COUNT 44 01/18 Specimen Type: BLOOD No comment entered. Ordering Provider: KASSIDY COHEN Report Released Date/Time: Jan 18, 2025 09:05 AM Reporting Lab: [facility] [address] [facility] [phone] Performing Lab: [facility] [address] [facility] [phone] [facility] CBC EOSINOPHILS /100 LEUKOCYTES IN BLOOD BY AUTOMATED COUNT 3 01/18 Specimen Type: BLOOD No comment entered. Ordering Provider: KASSIDY COHEN Report Released Date/Time: Jan 18, 2025 09:05 AM Reporting Lab: [address] [phone] Performing Lab: [facility] [address] [facility] [phone] [facility] CBC BASOPHILS/1 00 LEUKOCYTES IN BLOOD BY AUTOMATED COUNT 1 01/18 Specimen Type: BLOOD No comment entered. Ordering Provider: KASSIDY COHEN Report Released Date/Time: Jan 18, 2025 09:05 AM Reporting Lab: [facility] [address] [facility] [address] Performing Lab: [facility] [address] [place] [phone] [facility] CBC LYMPHOCYTES [#/VOLUME] IN BLOOD BY AUTOMATED COUNT 1.89 10*3/uL 0.77 - 4.50 01/18 Specimen Type: BLOOD No comment entered. Ordering Provider: KASSIDY COHEN Report Released Date/Time: Jan 18, 2025 09:05 AM Reporting Lab: [facility] [address] [facility] [address] Performing Lab: [facility] [address] [place] [phone] [facility] CBC MONOCYTES [#/VOLUME] IN BLOOD BY AUTOMATED COUNT 0.44 10*3/uL 0.19 - 0.80 01/18 Specimen Type: BLOOD No comment entered. Ordering Provider: KASSIDY COHEN Report Released Date/Time: Jan 18, 2025 09:05 AM Reporting Lab: [address] [phone] Performing Lab: [phone] [place] [address] CBC NEUTROPHILS [#/VOLUME] IN BLOOD BY AUTOMATED COUNT 1.97 10*3/uL 2.10 - 8.00 01/18 L Specimen Type: BLOOD No comment entered. Ordering Provider: KASSIDY COHEN Report Released Date/Time: Jan 18, 2025 09:05 AM Reporting Lab: [address] [address] Performing Lab: [address] [phone] [facility] CBC EOSINOPHILS [#/VOLUME] IN BLOOD BY AUTOMATED COUNT 0.11 10*3/uL 0.00 - 0.60 01/18 Specimen Type: BLOOD No comment entered. Ordering Provider: KASSIDY COHEN Report Released Date/Time: Jan 18, 2025 09:05 AM Reporting Lab: [address] [phone] Performing Lab: [address] [phone] [facility] CBC BASOPHILS [#/VOLUME] IN BLOOD BY AUTOMATED COUNT 0.04 10*3/uL 0.00 - 0.20 01/18 Specimen Type: BLOOD No comment entered. Ordering Provider: KASSIDY COHEN Report Released Date/Time: Jan 18, 2025 09:05 AM Reporting Lab: [address] [phone] Performing Lab: [address] [phone] VITAMIN D, 25-HYDROX Y 25-HYDROXYV ITAMIN D3 [MASS/VOLUM E] IN SERUM OR PLASMA 41.2 ng/mL 30 - 96 01/18 Specimen Type: SERUM No comment entered. Ordering Provider: KASSIDY COHEN Report Released Date/Time: Jan 18, 2025 09:05 AM Reporting Lab: [place] [address] Performing Lab: [address] ANTI-CCP CYCLIC CITRULLINAT ED PEPTIDE AB [UNITS/VOLU ME] IN SERUM BY IMMUNOASSAY <16 03/16 Specimen Type: SERUM Comment: REFERENCE RANGE: <20 Units Negative: <20 Weak Positive: 20 - 39 Moderate Positive: 40 - 59 Strong Positive: >59 Test Performed by [facility], [employer] [facility], [address] [place] [address] Neel Ramirez M.D., Ph.D., Director of Laboratorie s , CLIA [id number] Ordering Provider: ИВАН GARCIA R Report Released Date/Time: March 16, 2024 09:47 AM Reporting Lab: [facility] [address] [place] [phone] Performing Lab: [address] [facility] ANTI-NUCL EAR ANTIBODY (STL) NUCLEAR AB [PRESENCE] IN SERUM NEGATIVE 03/16 Specimen Type: SERUM No comment entered. Ordering Provider: ИВАН GARCIA ICA R Report Released Date/Time: March 16, 2024 09:47 AM Reporting Lab: [address] [address] Performing Lab: [address] [phone] [place] [address] RHEUMATOI D FACTOR (STL) RHEUMATOID FACTOR [UNITS/VOLU ME] IN SERUM OR PLASMA <15.0 0 - 29 03/16 Specimen Type: SERUM No comment entered. Ordering Provider: ИВАН GARCIA ICA R Report Released Date/Time: March 16, 2024 09:47 AM Reporting Lab: [facility] [address] [facility] [phone] Performing Lab: [facility] [address] [facility] [address] [facility] TSH W/ REFLEX FT4 (STL) THYROTROPIN [UNITS/VOLU ME] IN SERUM OR PLASMA 1.308 u[IU]/mL 0.47 - 5 03/16 Specimen Type: PLASMA Comment: No hemolysis noted. Ordering Provider: ИВАН GARCIA ICA R Report Released Date/Time: March 16, 2024 09:47 AM Reporting Lab: [facility] [address] [facility] [address] Performing Lab: [address] [phone] [place] [address] Vital Signs Combined list of inpatient and outpatient Vital Signs from Department of Defense and Veterans Affairs, ranging from 12 months to all on record, depending upon the facility. Vital Sign Value Date Comments Source SYSTOLIC BLOOD PRESSURE 120 01/18/2025 08:44:59 [facility] DIASTOLIC BLOOD PRESSURE 72 01/18/2025 08:44:59 [facility] PULSE OXIMETRY 98 01/18/2025 08:44:59 [facility] WEIGHT 148 01/18/2025 08:44:59 [facility] BMI 26 kg/m2 01/18/2025 08:44:59 [facility] PAIN 5 01/18/2025 08[facility]44:[facility] HEIGHT 63 01/18/2025 08:44:59 [facility] TEMPERATURE 97.8 01/18/2025 08:44:59 [facility] PULSE 72 01/18/2025 08:44:59 [facility] RESPIRATION 18 01/18/2025 08:44:59 [facility] Encounters Combined list of: 1) Encounters from Department of Veterans Affairs facilities going backup to the last 18 months, not all VA inpatient encounters are included; 2) Encounters from the Department of Defense facilities going backup to 280 months. Location Location Details Encounter Type Encounter Number Reason For Visit Attending Provider ADM Date DC Date Status Disposition Source [facility] Charlesto n[facility] OUTPATIENT [id number] GLENIS DEL VALLE 06/29 Released w/o Limitations [facility] J Carlos beasley([facility] [employer]) OUTPATIENT [id number] initial inproce JORGE Espinoza 06/30 Released w/o Limitations [facility] J Carlos gale([facility] [employer] ) [facility] OUTPATIENT [id number] TOYA BARROS 06/30 Released w/o Limitations [facility] J Carlos gale([facility] Optomet ry Clinic) [facility]) OUTPATIENT [id number] Notes Entered by: ELIZABETH ROBIN 12 Jul 2013 1259 ------- ------- ------- ------- -- PRITI MEDRANO 07/12 Released w/o Limitations [facility] J Carlos gale([facility]) [facility] J Carlosfrieda n([facility] [employer]) OUTPATIENT [id number] Female Inproce JORGE Espinoza 07/12 Released w/o Limitations [facility] J Carlos gale([facility] [employer] ) [facility] Fourth BN BAS) OUTPATIENT [id number] Notes Entered by: ELIZABETH ROBIN 20 Jul 2013 0621 ------- ------- ------- ------- -- Amanda/Willis8 - PRITI BEEBE 07/20 Released w/o Limitations [facility] J Carlos gale([facility] Fourth BN BAS) [facility] n([facility] [employer]) OUTPATIENT [id number] 2nd visit for inproce OJRGE Espinoza N 08/05 Released w/o Limitations [facility] J Carlos beasley([facility] [employer] ) [place] ) OUTPATIENT [id number] consult for mark COLINMARCELINO SHEEHANRI T 11/07 Released w/o Limitations [place]) [place] OUTPATIENT [id number] rt hip pain TOYA CORONADO F 11/10 Released with Work/Duty Limitations [place] [place] [facility] [place] OUTPATIENT [id number] rt hip pain TOYA CORONADO F 12/06 Released with Work/Duty Limitations [place] [place] [facility] [place] [place] OUTPATIENT [id number] geri anglin LIZBETH MENCHACA T 12/27 Sick at Home/Quarter s [place] OUTPATIENT [id number] f/u right hip pain [id number] TOYA CORONADO F 02/10 Released with Work/Duty Limitations [place] OUTPATIENT [id number] F/U Rt hip pain [id number] TOYA CORONADO F 03/07 Released with Work/Duty Limitations [place] [place] [facility] [place] OUTPATIENT [id number] F/U RT hip pain TOYA CORONADO F 03/21 Released w/o Limitations [place]) OUTPATIENT [id number] right hip pain 7/10 pain. GINO CRANDALL E 04/07 Released w/o Limitations [place] [employer] [place] [facility] [place] [employer] [facility]) OUTPATIENT [id number] Snappin g hip syndrom e CAMERON DE SOUZA 04/27 Released with Work/Duty Limitations [place] [employer]/S ports Medic[place] [employer] [place] [employer] [facility] [facility] OUTPATIENT [id number] mri results /rt hip CAMERON DE SOUZA 05/23 Released with Work/Duty Limitations [place] [facility]/S ports Medicin [place] Physical Therapy [facility]) TELE CONSULT [id number] CHRIS PITTMAN P 06/15 [place] Phys[place] [facility] [employer] [place] [place] [facility] [employer] OUTPATIENT [id number] ARTHRAL CASS - PELVIS / HIP / FEMUR CHRIS PITTMAN 07/04 Released with Work/Duty Limitations [place] Phys[place] l Therapy [facility] [facility] [id number] Notes Entered by: TAISHA GUARDADO 08 Aug 2014 1531 ------- ------- ------- ------- -- Annual Audiogr am TAISHA GUARDADO 08/09 Released w/o Limitations [facility] [facility] Physical [place] [id number] Notes Entered by: LE HA 11 Sep 2014 1358 ------- ------- ------- ------- -- FOLLOW UP(LIMI BRIANNE DUTY) / MANISHA CESAR 09/12 [place] [facility] [facility] [facility] [place]) [place] [id number] SNAPPIN G HIP SYNDROM E(Right ) [place] 09/20 [place] [facility] [facility]) [place] [id number] I treatme nt RAMONA WISEMAN B 09/21 Released w/o Limitations [facility] [facility]) [place] [id number] treatme NAYE Cobos R 09/27 Released w/o Limitations [facility] [facility]) [place] [id number] treatme nt NAYE JUSTICE R 10/03 Released w/o Limitations [facility] [facility] Physical Ex[place] OUTPAT[place] [id number] Notes Entered by: SAPNA STALLWORTH 09 Oct 2014 1349 ------- ------- ------- ------- -- Alejandra linder and TERESITA Queen 10/09 Sick at Home/Quarter s [facility] [facility] [id number] treatme nt RAMONA WISEMAN B 10/12 Released w/o Limitations [facility] [facility] [id number] treatme NAYE Cobos R 10/14 Released w/o Limitations [facility] [facility] [id number] treatme nt RAMONA WISEMAN B 10/19 Released w/o Limitations [facility] [facility] [id number] treatme nt NAYE JUSTICE R 10/21 Released w/o Limitations [facility] [facility] [id number] f/up (R hip) [place] 10/25 Released w/o Limitations [facility] [facility] [id number] treatme nt RAMONA WISEMAN 10/26 Released w/o Limitations [facility] [facility] [facility] [facility] Physical Exams[place] [id number] Notes Entered by: YAZMIN SINGH 13 Nov 2014 1455 ------- ------- ------- ------- -- Right Hip Pain F/U MANISHA JIMENEZ 11/14 Released with Work/Duty Limitations [facility] Phys[place] Ex[place] [facility]) [place] [id number] TREATME NT MARBIN BORREROO 12/02 Released w/o Limitations [facility] [facility]) [place] [id number] F/UP (R/HIP) [place] 12/05 Released w/o Limitations [facility] [facility] [id number] SNAPPIN G HIP SYNDROM E GORDY MONDRAGON R S 12/05 Released with Work/Duty Limitations [facility] [facility] OUTPATIENT [id number] INJ PER GORDY RAJAN R S 12/07 Released with Work/Duty Limitations [facility] [facility] OUTPATIENT [id number] TR ACU INITIAL PER CYNTHIA MONDRAGON. [id number] FELIX SCOTT 12/13 Released w/o Limitations [facility] [facility] [facility]) [place] [id number] BREAST LUMP OR MASS RIGHT BRET VICK MADIEANALIA 12/18 Released w/o Limitations [facility] [place] [facility] [facility] [id number] [place] 12/21 [place] Lim[place] [facility] [facility] [facility] [id number] [facility] CORTEZJOSE FLAQUITO 12/21 [place] Limitations [facility] [facility] OUTPATIENT [id number] [place]. [place] 12/26 [place]ased w/o Limitations [facility] [facility]) [place] [id number] PAIN NUTRITI ON @ PAIN CLINIC KELVIN ANAYA 12/26 [place] Limitations [facility] [facility] OUTPATIENT [id number] TR ACU Deysi/FELIX HOOPER 01/02 [place]ased [place]/o Limitations [facility] [facility] [facility] [place] [facility] [id number] TR CYNTHIA F/UTrev [id number] GORDY MONDRAGON 01/03 Released with Work/Duty Lim[place] [facility] [facility] OUT[place]IENT [id number] TR CHARITYU Deysi/FELIX HO[place] 01/09 [place]ased [place]/o Limitations [facility] [facility] [facility] [place] [facility] [id number] TR DPT INITIAL PER CYNTHIA MONDRAGON. [id number] CANDIS COATS 01/15 [place]ased [place]/o Limitations [facility] [facility] OUTPATIENT [id number] TR ELENA Jo/FELIX HOOPER 01/16 [place]ased [place]/o Limitations [facility] [facility] OUTPATIENT [id number] Notes Entered by: CANDIS COATS 22 Jan 2015 0942 ------- ------- ------- ------- -- RIght SIJ dysfunc tion CANDIS COATS 01/22 [place]ased [place]/o Limitations [facility] [facility]) OUTPATIENT [id number] [facility] FELIX WHEAT 01/29 [place]ased [place]o Limitations [facility] [facility] OUTPATIENT [id number] Notes Entered by: CANDIS COATS 29 Jan 2015 1158 ------- ------- ------- ------- -- Difficu lty with crunche CANDIS Oliver 01/29 [place]ased [place] Limitations [facility] [facility] Physical Ex[place] [id number] Notes Entered by: RAVI SHEPARD 07 Feb 2015 0803 ------- ------- ------- ------- -- UTI/367 ISABELA NASSAR 02/07 [place]ased w/[place] Limitations [facility] [facility] [place] OUTPATIENT [id number] [facility] FELIX GUZMAN 02/13 Released w/o Limitations [facility] [place] [place] OUTPATIENT [id number] bernie per CANDIS Randall 02/14 Released w/o Limitations [facility] [place] [facility] OUTPAT[place] [id number] Notes Entered by: DONAL CARLSON 15 Feb 2015 1001 ------- ------- ------- ------- -- R HIP F/U (367) TONYYARITZAMANISHA R 02/15 Released with Work/Duty Limitations [facility] [facility] [place] OUTPATIENT [id number] CANDIS Davidson Polo 02/21 Released w/o Limitations [facility] [place] [facility] [place] OUTPATIENT [id number] est fuv NADIA, GORDY R S 03/01 Released with Work/Duty Limitations [facility] [place] [id number] MEAGANONELIA 03/05 [place]ased w/o Limitations [facility] [facility] [id number] pregnan cy;OBRE G;LMP27 ;p nt was told bring OBREGpk gt WIL ARROYO 03/15 Released w/o Limitations [facility] [facility] [place] [id number] TVUSfor dating, 19 yo, ; 10-11 wks SY GARCIA 03/21 Released w/o Limitations [facility] [facility] [place]) [place] [id number] 19 yo, , possibl e 1TT screen KAYLA ALVARES 03/28 Released w/o Limitations [facility] [place] [facility] OUTPATIENT [id number] EST FUV NADIA, GORDY R S 03/29 Released with Work/Duty Limitations [facility] [place] [facility] [place] [id number] Notes Entered by: ATIYA WATKINS 04 Apr 2015 0805 ------- ------- ------- ------- -- Migrane , morning sicknes s / HMLA-36 7 NAFF, TERESITA MUIR 04/04 Sick at Home/Quarter s [facility] MAG 24 Physica l Exams) [facility] [facility]) OUTPATIENT [id number] Declara tion of Pregnan tosha YVES ABDUL S 04/17 Released w/o Limitations [facility] [place]) [place] [id number] Resched ule OB pe CEE MERI S 04/26 Released w/o Limitations [facility] TELE CONSULT [id number] Notes Entered by: Chan CAMP 03 May 2015 0659 ------- ------- ------- ------- -- Lab results SINDI MIKEISTEN S 05/03 [facility] OUT[place] [id number] Reporta ble Disease Evaluat ion KARLA ECHEVERRIA E 05/09 Released w/o Limitations [facility] [facility] OUT[place] [id number] sdec 16+3wks c/o pulling and crampin g X today in lower abd REVA TYSON 05/23 Released with Work/Duty Limitations [facility] [facility] OUT[place]IENT [id number] 17wk ob f/u; CNMIKE COFFEY 05/24 Released w/o Limitations [facility] [facility] OUTPATIENT [id number] fuv -medboa GORDY Brandt S 06/02 Released with Work/Duty Limitations [facility] [facility] OUTPATIENT [id number] YOGA SANTA RUIZ S 06/06 Released w/o Limitations [facility] [place] [place] OUTPATIENT [id number] YOGA @ [facility] [place] S 06/14 Released w/o Limitations [facility] [place] [place] OUTPATIENT [id number] SPEC PER LEVI HUDSON W 06/14 Released w/o Limitations [facility] [place] [place] [id number] Form for limited wk signed. ABIMBOLA MANN 06/18 Released w/o Limitations [facility] [facility] [place] OUTPATIENT [id number] YOGA @ GYM [place] S 06/20 Released w/o Limitations [facility] [place] [id number] 20WKS US POLICY GIVEN YAYA STAHL 06/21 [facility]ased w/o Limitations [facility] [place] [place]) [place] [id number] ARTHRAL CASS(PEL VIS/HIP /FEMUR RT) - [facility] EDILIA JAIMES 06/21 [place]ased w/o Limitations [facility] [place] [facility] [place] OUTPATIENT [id number] [facility] LEVI BOB 06/22 Released w/o Limitations [facility] [place] [place] OUTPATIENT [id number] [facility] GORDY ANDREW 06/26 Released with Work/Duty Limitations [facility] [place] [place] OUTPATIENT [id number] YOGA @ GYM [place] S 06/27 Released w/o Limitations [facility] [place] [place] OUTPATIENT [id number] latrellLEVI Belcher W 06/29 Released w/o Limitations [facility] [place] [place] OUTPATIENT [id number] SANTA Horne S 07/04 Released w/o Limitations [facility] [place] [facility] [place] OUTPATIENT [id number] f/u ( Nadia pt) HEATHER ASENCIO 07/13 Released w/o Limitations [facility] [place] [facility] [place]) [place] [id number] [email or web address] ob-cnm MIKE RACHELID 07/19 Released w/o Limitations [facility] [place] [facility] [place] OUTPATIENT [id number] f/i LEVI BOB W 07/20 Released w/o Limitations [facility] [place] [id number] Notes Entered by: YOSELIN MOREL 21 Jul 2015 0027 ------- ------- ------- ------- -- CHERIE VIDES DIANE 07/21 [place]ased w/o Limitations [facility] [facility] [place] TELE CONSULT [id number] Notes Entered by: KARLENE STOCKTON 30 Jul 2015 0624 ------- ------- ------- ------- -- Lab results MIKE RACHELID 07/30 [facility] [place] [facility] [place] OUTPATIENT [id number] 26wks&2 dys ob f/u; REBECCA HENSONINA L 07/31 Released w/o Limitations [facility] [place] [facility] [place] OUTPATIENT [id number] Notes Entered by: KALEN HERNANDES 31 Jul 2015 1339 ------- ------- ------- ------- -- 503 (AD) ROE HERNANDES 07/31 [place]ased w/o Limitations [facility] [place] [facility] [place] OUTPATIENT [id number] FUV LEVI COREAS 08/27 Released w/o Limitations [facility] [place] [place]) [place] [id number] PILY Fernandes 08/28 Released w/o Limitations [facility] [place] [facility] [place]) [place] [id number] [address] ob-cnm MERI MIKE S 08/29 Released w/o Limitations [facility] [facility] [id number] Notes Entered by: CHARU GIL 29 Aug 2015 1427 ------- ------- ------- ------- -- tdap + SHADIA Doran 08/30 [facility]ased w/o Limitations [facility] [facility] [place]) [place] [id number] Darrell&SURJIT Griffin 08/31 Released w/o Limitations [facility] [facility] [place]) [place] [id number] Childbi rth educati on series PILY VIDAL 09/05 Released w/o Limitations [facility] [place] [facility] [place]) [place] [id number] Childbi rth educati on series PILY VIDAL 09/07 Released w/o Limitations [facility] [place] [place] [facility] [place] OUTPATIENT [id number] FUV CHIRO R/S 09/24 LEVI BOB W 10/03 Released w/o Limitations [facility] [place] [facility] [place]) [place] [id number] R/S ob f/u SY GARCIA 10/08 Released w/o Limitations [facility] [place] [place] [facility] [place] [id number] Notes Entered by: Juan BALLESTEROS 16 Oct 2015 1400 ------- ------- ------- ------- -- LABOR CHECK KRSEE, MERI S 10/17 [place]ased w/o Limitations [facility] [place] [facility] [place]) [place] [id number] 38wks cnm KRSEE, MERI S 10/22 Released w/o Limitations [facility] [place] [facility] [place]) OUT[place]IENT [id number] 39wks BROOKLYNN HENSON 10/31 Released w/o Limitations [facility] [place] [facility] [place] OUTPATIENT [id number] fuv chiro LEVI BOB W 10/31 Released w/o Limitations [facility] [place] [place] [id number] Notes Entered by: JHONNY VALERIO 05 Nov 2015 1142 ------- ------- ------- ------- -- LABOR CHECK KRUM, MERI S 11/05 Released w/o Limitations [facility] [place] [facility] [place]) [place]IENT [id number] 40wks cnm KRUM, MERI S 11/07 Released w/o Limitations [facility] [facility] [place] DIRECT TO MTF FROM OTHER THAN ER OR APU [phone] [id number] JADEN BARRIOS 11/10 RETURNED TO DUTY [facility] [place] [facility] [id number] Notes Entered by: YOSELIN MOREL 10 Nov 2015 2308 ------- ------- ------- ------- -- DECREAS ED FM JADEN BARRIOS 11/11 Admitted [facility] [facility] [facility] TELE CONSULT [id number] Notes Entered by: BELEN BOND 27 Nov 2015 1427 ------- ------- ------- ------- -- postpar kanwal follow up AOKSUA CARLISLE 11/28 [facility] [facility] OUTPATIENT [id number] SPEC: PT OF HEATHER LOPEZ 11/30 Released w/o Limitations [facility] [facility] OUTPATIENT [id number] tens unit one on one CANDIS COATS 12/05 Released w/o Limitations [facility] TELE CONSULT [id number] Notes Entered by: Dariusz THAKKAR 15 Dec 2015 1543 ------- ------- ------- ------- -- Postpar kanwal follow up call BROOKLYNN THAKKAR 12/16 [facility]) [facility] OUTPATIENT [id number] theraca ne per SANTA Mora 12/19 Released w/o Limitations [facility] [facility] [place] [facility] [id number] postpar kanwal appt. MERI MIKE S 12/26 [place]ased w/o Limitations [facility] [place] [facility] [facility] OUTPATIENT [id number] Notes Entered by: Darrell FLANNERY 11 Jan 2016 1320 ------- ------- ------- ------- -- TENS GALINDO NICK 01/10 Released w/o Limitations [facility] [facility] OUTPATIENT [id number] [facility] HEATHER ASENCIO 01/25 Released w/o Limitations [facility] [facility] OUTPATIENT [id number] [facility] LEVI BOB 02/04 Released w/o Limitations [facility] [facility] OUTPATIENT [id number] f/u LEVI BOB 02/10 Released w/o Limitations [facility] [facility] Physical Exams[place] OUTPATIENT [id number] Notes Entered by: DAIANA MEDLEY 29 Apr 2016 1055 ------- ------- ------- ------- -- RTFD // 367 MANISHA JIMENEZ 04/29 Released w/o Limitations [facility] Physica l Exams[place] [facility] [id number] [facility] eye exam / c#updat ed GORDY MATTSON 06/26 Released w/o Limitations [facility] [facility] [id number] Notes Entered by: JEANIE COTTER 21 Jul 2016 1033 ------- ------- ------- ------- -- 503 JEANIE MILLER 07/21 [facility]ased w/o Limitations [facility] [facility] [place] [facility]IENT [id number] JOHN NGUYEN 09/01 Released w/o Limitations [facility] [place] [place] [facility] [place] [facility] OUTPATIENT [id number] B:721 OMEGA AQUINO 01/05 [facility] w/o Limitations [facility] [id number] B:721 ROSA GUZMAN 01/07 Released w/o Limitations [facility] [place] [facility] [facility] [place] Physical Ex[place] TELE CONSULT [id number] Notes Entered by: CUCA MARKHAM 11 Feb 2017 1553 ------- ------- ------- ------- -- CAICEDO/walk in CUCA MARKHAM 02/12 [facility] Ex[place] [facility] [place] OUTPATIENT [id number] MICHELLE SCOTT 03/01 Released w/o Limitations [facility] [place] [place] [facility] [place] Physical Ex[place] OUTPATIENT [id number] Notes Entered by: Polo CAMILO 05 Mar 2017 1330 ------- ------- ------- ------- -- LEROY Linares/ COLUMBA BRASWELL JOSHUA R 03/05 Released w/o Limitations [facility] Phys[place] Ex[place] [facility]IENT [id number] NAYE Kennedy 03/26 [facility]ased w/o Limitations [facility] [facility] [facility] [place] OUTPATIENT [id number] B:133;1 96;603 NESS BARNES 04/28 Released w/o Limitations [facility] [place] [facility] [facility] [place] OUTPATIENT [id number] JONE DE LA O 04/30 Released w/o Limitations [facility] [place] [facility] [facility] [place] OUTPATIENT [id number] B:133;1 96;603 MEGAN ROSA NIKKI 05/05 Released w/o Limitations [facility] [place] [facility] [facility]) [place] [id number] Follow/ Up NAYE SHEEHAN 05/27 [place]ased w/o Limitations [facility] [place] [facility] Physical Exams[place] OUTPATIENT [id number] Notes Entered by: SHAYLA SCOTT 17 Jun 2017 0801 ------- ------- ------- ------- -- HMLA-36 7/ LT KNEE SWELLIN G X 1 WK BEBO FERRARO 06/17 Released with Work/Duty Limitations [facility] Phys[place] Exams[place] [facility] [id number] Notes Entered by: THUY PAZ RD 23 Jun 2017 0804 ------- ------- ------- ------- -- X-Ray Review BOBBI BURNETT 06/23 Released with Work/Duty Limitations [facility] Physica l Exams[place] [facility] [id number] Notes Entered by: RAGHU MULLINS 01 Jul 2017 0747 ------- ------- ------- ------- -- HMLA 367/ SORE THROAT x 3 days BOBBI BURNETT 07/01 Sick at Home/Quarter s [facility] Phys[place] Ex[place] [facility] [id number] Routine F/u NAYE SHEEHAN 07/02 Released w/o Limitations [facility] [facility]PAT[place] [id number] Snoring YUE SIDHU Robert 09/07 Released w/o Limitations [facility] [place] [facility] [place] [facility]PATIENT [id number] Notes Entered by: EV URIAS 14 Sep 2017 1432 ------- ------- ------- ------- -- Flu *CANDIS Hammer 09/15 Released w/o Limitations [facility] [facility] Physical Exams[place] OUTPATIENT [id number] Notes Entered by: LUDWIN WOOD 22 Sep 2017 1326 ------- ------- ------- ------- -- HMLA-36 7 // L FOOT PX BEBO FERRARO 09/22 Released w/o Limitations [facility] Physica [place] Exams[place] [facility] Physical Exams[place] OUTPATIENT [id number] HMLA 367/ BC BEBO FERRARO 09/29 Released with Work/Duty Limitations [facility] Physica [place] Exams[place] [facility] [facility] [place] OUTPAT[place] [id number] Pain in right hip/PEB GORDY CUETO 10/09 Released w/o Limitations [facility] [facility] [facility] Physical Exams[place] TELE CONSULT [id number] Notes Entered by: BEBO FERRARO 27 Nov 2017 1332 ------- ------- ------- ------- -- ORTHO CONSULT BEBO FERRARO 11/27 [facility] Phys[place] Ex[place] [facility] [id number] Pain in right hip SAPNA BEAN D 12/14 Released w/o Limitations [facility] [facility] Physical Exams[place] OUTPATIENT [id number] BEBO FERRARO 01/07 Released with Work/Duty Limitations [facility] Physica l Exams[place] [facility] [place] [id number] F/u right hip SAPNA BEAN D 01/14 Released w/o Limitations [facility] [facility] [place] OUTPATIENT [id number] Pain in right hip/PEB JAMES LEACH D 02/05 Released w/o Limitations [facility] [facility] Physical Exams[place] TELE CONSULT [id number] Notes Entered by: KIM DAHL 10 Feb 2018 0854 ------- ------- ------- ------- -- TRIPLER PAP SMEAR REFERRA L BEBO FERRARO 02/10 [facility] Physica [place] Exams[place] [facility] Physical Exams[place] OUTPATIENT [id number] Notes Entered by: J LUIS GONZALES 10 Feb 2018 1132 ------- ------- ------- ------- -- HMLA-36 7//UTI complai nts J LUIS CHOWDHURY 02/10 Released w/o Limitations [facility] Physica [place] Exams[place] [facility] Physical Exams[place] OUTPATIENT [id number] HMLA 367/ FINAL PE BEBO FERRARO 02/17 Released with Work/Duty Limitations [facility] Physica [place] Exams[place] [facility] [place] [id number] Any female provide r for Pap (per consult ) BROOKLYNN HENSON 02/25 [place]ased w/o Limitations [facility] [facility] [place] [facility] [facility] [place] [facility] [id number] Notes Entered by: NAHOMI HENSON 02 Mar 2018 1216 ------- ------- ------- ------- -- PAP NORMAL LETTER BROOKLYNN HENSON 03/02 [facility] [place] [facility] [place] [facility] [facility] OUTPATIENT [id number] LA-26 7// MRI FOLLOW UP KAILEETERESA MCCRAY ALLISON 03/18 Released with Work/Duty Limitations [facility] [place] Ex[place] [facility] [place] [facility] [id number] REJI Crabtree 04/13 [place]ased w/o Limitations [facility] [place] [facility] [facility] Physical [place] OUTPATIENT [id number] [place]-36 7//Sepe ration BEBO FERRARO 04/29 Released with Work/Duty Limitations [facility] Ex[place] [facility] Outpatient Encounter [id number] 11/24 [facility] OFFICE O/P EST LOW 20 MIN [id number] [id number] Diagnos is: ICD-10- CM F41.1 General ized anxiety disorde r LETICIA CHRISTIE 12/16 [facility] Outpatient Encounter [id number] 12/17 [facility] Outpatient Encounter [id number] 01/27 [facility] HC PRO PHONE CALL 5-10 MIN [id number] Diagnos is: ICD-10- CM F43.23 Adjustm ent disorde r with mixed anxiety and depress ed mood YOSELYN DIALLO 01/27 [facility] Outpatient Encounter [id number] CORRINE LANDRY 01/28 [facility] Outpatient Encounter [id number] 02/08 [facility] Outpatient Encounter [id number] BELEN HORNE 02/08 [facility] Outpatient Encounter [id number] TORRI JULIAN S 02/18 [facility] Outpatient Encounter [id number] TORRI JULIAN S 02/18 [facility] PSYTX W PT 45 MINUTES [id number] [id number] Diagnos is: ICD-10- CM F41.9 Anxiety disorde r, unspeci fied SPENCER BOWMAN L 02/23 [facility] PSYCHOTHER APY [id number] Diagnos is: ICD-10- CM F41.9 Anxiety disorde r, unspeci fied FELIX REID 03/01 [facility] En[facility] [id number] 03/01 [facility] En[facility] [id number] RADHA-YARITZA GARCESREBECCA 03/02 [facility] Outpatient Encounter [id number] RADHA-YARITZA GARCESREBECCA 03/02 [facility] Outpatient Encounter [id number] [id number] 470 03/02 [facility] Outpatient Encounter [id number] [id number] LETICIA CHRISTIE 03/03 [facility] GROUP PSYCHOTHER APY [id number] Diagnos is: ICD-10- CM F41.9 Anxiety disorde r, unspeci FELIX Sam 03/08 [facility] GROUP PSYCHOTHER APY [id number] Diagnos is: ICD-10- CM F41.9 Anxiety disorde r, unspeci FELIX Sam 03/15 [facility] OFFICE O/P EST MOD 30 MIN [id number] Diagnos is: ICD-10- CM G43.109 Migrain e with aura, not intract able, w/o status migrain osus RADHA,LEA GLORIA R 03/16 [facility] PSYCHOTHER APY [id number] Diagnos is: ICD-10- CM F41.9 Anxiety disorde r, unspeci FELIX Sam 03/22 [facility] Outpatient Encounter [id number] FELIX REID Robert 04/05 [facility] OFFICE O/P EST LOW 20 MIN [id number] [id number] Diagnos is: ICD-10- CM F41.1 General ized anxiety disorde r LETICIA CHRISTIE 04/15 [facility] Outpatient Encounter [id number] KELSEA,CY NTHIA A 05/23 [facility] Outpatient Encounter [id number] KELSEA,CY NTHIA A 05/23 [facility] QNHP OL DIG ASSMT&MGMT 09-28 [id number] Diagnos is: ICD-10- CM G43.109 Migrain e with aura, not intract able, w/o status migrain osus KELSEA,CY NTHIA A 06/28 [facility] OFFICE O/P EST MOD 30 MIN [id number] Diagnos is: ICD-10- CM G43.109 Migrain e with aura, not intract able, w/o status migrain osus FROY,J UAN 08/10 [facility] Outpatient Encounter [id number] DIANA HUBERMehdi STARR A 08/26 [facility] Outpatient Encounter [id number] KELSEA,CY NTHIA A 09/14 [facility] Outpatient Encounter [id number] 10/07 [facility] [address] [facility] Outpatient Encounter [id number] 10/21 [facility] Outpatient Encounter [id number] 10/[address] [facility] [address] [facility] OFFICE O/P EST HI 40 MIN [id number] Diagnos is: ICD-10- CM G43.109 Migrain e with aura, not intract able, w/o status migrain osus Taco MCDUFFIE UAN 12/07 [facility] Outpatient Encounter [id number] Taco MCDUFFIE UAN 12/08 [facility] [address] [facility] Outpatient Encounter [id number] 12/16 [facility] OFFICE O/P EST MOD 30 MIN [id number] [id number] Diagnos is: ICD-10- CM F41.9 Anxiety disorde r, unspeci fied COHEN,AR MIDA A 01/18 [facility] Outpatient Encounter [id number] 02/13 [facility] Outpatient Encounter [id number] 02/27 [facility] Procedures Combined list of: 1) Procedures from [facility] of [facility] facilities going back up to thelast 18 months, not all [facility] non-surgical procedures are included; 2) All procedures from the Department of Defense facilities. Procedure Procedure Type Code Date Perfomer Comments Sourc e INFLUENZA VIRUS VACCINE, QUADRIVALENT, LIVE (LAIV4), FOR INTRANASAL USE 2012 [facility] COLLECTION OF VENOUS BLOOD BY VENIPUNCTURE 2012 [facility] COLLECTION OF VENOUS BLOOD BY VENIPUNCTURE 2012 [facility] SCREENING TEST OF VISUAL ACUITY, QUANTITATIVE, BILATERAL 2012 [facility] PHYS/OTH QUALIFIED HEALTH RN INFUSION QUALIFIED,EDUCATION ,TRAIN,LICENSURE/RE GULATION (WHEN APPLICABLE) EDUC SER RENDERED TO PATS IN A GRP SETTING (EG,,OBESIT Y,OR DIABETIC INSTRUCT) 2012 [facility] ARTHROCENTESIS, ASPIRATION AND/OR INJECTION, MAJOR JOINT OR BURSA (EG, SHOULDER, HIP, KNEE, SUBACROMIAL BURSA); WITHOUT ULTRASOUND GUIDANCE 2013 [facility] DETERMINATION OF REFRACTIVE STATE 2017 [facility] SCREENING PAPANICOLAOU SMEAR; OBTAINING, PREPARING AND CONVEYANCE OF CERVICAL OR VAGINAL SMEAR TO LABORATORY 2017 [facility] BRIEF EMOTIONAL/BEHAVIORA L ASSESSMENT (EG, DEPRESSION INVENTORY, ATTENTION-DEFICIT/H YPERACTIVITY DISORDER [ADHD] SCALE), WITH SCORING AND DOCUMENTATION, PER STANDARDIZED INSTRUMENT 2017 [facility] UNLISTED SPECIAL SERVICE, PROCEDURE OR REPORT 2016 [facility] IMMUNIZATION ADMINISTRATION (INCLUDES PERCUTANEOUS, INTRADERMAL, SUBCUTANEOUS, OR INTRAMUSCULAR INJECTIONS); 1 VACCINE (SINGLE OR COMBINATION VACCINE/TOXOID) 2016 [facility] SPIROMETRY, INCLUDING GRAPHIC RECORD, TOTAL AND TIMED VITAL CAPACITY, EXPIRATORY FLOW RATE MEASUREMENT(S), WITH OR WITHOUT MAXIMAL VOLUNTARY VENTILATION 2016 [facility] FUNDUS PHOTOGRAPHY WITH INTERPRETATION AND REPORT 2016 [facility] INJECTION, METOCLOPRAMIDE HCL, UP TO 10 MG 2016 [facility] VIS FUNCT SCREEN,AUTOMAT/SEMI -AUTOMAT BILAT QUANT DETERM VISUAL ACUITY,OCULAR ALIGN,COLOR VISION,PSEUDOISOCHR OMAT PLATES,& FIELD VIS (MAY INC ALL/SOME SCRN DETERM FOR CONTRAST SENSITIV,VIS UND GLARE) 2016 [facility] SIMPLE REPAIR OF SUPERFICIAL WOUNDS OF SCALP, NECK, AXILLAE, EXTERNAL GENITALIA, TRUNK AND/OR EXTREMITIES (INCLUDING HANDS AND FEET); 2.6 CM TO 7.5 CM 2015 [facility] PURE TONE AUDIOMETRY (THRESHOLD); AIR ONLY 2015 [facility] FITTING OF SPECTACLES, EXCEPT FOR APHAKIA; MONOFOCAL 2015 [facility] CHIROPRACTIC MANIPULATIVE TREATMENT (CMT); SPINAL, 3-4 REGIONS 2015 [facility] CHIROPRACTIC MANIPULATIVE TREATMENT (CMT); SPINAL, 3-4 REGIONS 2015 [facility] CARE VISIT () 2015 [facility] PHYSICAL THERAPY EVALUATION 2015 [facility] SELF-CARE/HOME MANAGMENT TRAIN (EG,ACT OF DAILY LIVING (ADL) &COMPENSAT TRAIN,MEAL PREPARATION,SAFETY PROCS,AND INSTRUCT IN USE OF ASST TECHNOLOGY DEV/ADPT EQUIP) DIR ONE-ON-ONE CONT,EA 15 MINUTES 2015 [facility] DILATION OF CERVIX, VIA NATURAL OR ARTIFICIAL OPENING 2015 [facility] REPAIR VAGINA, VIA NATURAL OR ARTIFICIAL OPENING 2015 [facility] DELIVERY OF PRODUCTS OF CONCEPTION, EXTERNAL APPROACH 2015 [facility] INTRODUCTION OF OTHER THERAPEUTIC SUBSTANCE INTO FEMALE REPRODUCTIVE, VIA NATURAL OR ARTIFICIAL OPENING 2015 [facility] MONITORING OF PRODUCTS OF CONCEPTION, CARDIAC RATE, EXTERNAL APPROACH 2015 [facility] POSTOPERATIVE FOLLOW-UP VISIT, NORMALLY INCLUDED IN THE SURGICAL PACKAGE, INDICATE THAT EVALUATION & MANAGEMENT SERVICE WAS PERFORMED DURING A POSTOPERATIVE PERIOD REASON RELATED ORIGINAL PROCEDURE 2015 [facility] POSTOPERATIVE FOLLOW-UP VISIT, NORMALLY INCLUDED IN THE SURGICAL PACKAGE, INDICATE THAT EVALUATION & MANAGEMENT SERVICE WAS PERFORMED DURING A POSTOPERATIVE PERIOD REASON RELATED ORIGINAL PROCEDURE 2015 [facility] VAGINAL DELIVERY ONLY (WITH OR WITHOUT EPISIOTOMY AND/OR FORCEPS); 2015 [facility] ULTRASOUND, UTERUS, REAL TIME WITH IMAGE DOCUMENTATION, LIMITED (EG, HEART BEAT, PLACENTAL LOCATION, POSITION AND/OR QUALITATIVE AMNIOTIC FLUID VOLUME), 1 OR MORE FETUSES 2015 [facility] SUBSEQ CARE VISIT () [EXCLS:PATIENTS WHO ARE SEEN FOR A CONDITION UNREL TO / CARE (EG,AN UP RESPIR INFECT;PATIENTS SEEN FOR CONSULTATION ONLY,NOT FOR CONT CARE)] 2014 [facility] NON-STRESS TEST 2014 [facility] CHIROPRACTIC MANIPULATIVE TREATMENT (CMT); SPINAL, 3-4 REGIONS 2014 [facility] SUBSEQ CARE VISIT () [EXCLS:PATIENTS WHO ARE SEEN FOR A CONDITION UNREL TO / CARE (EG,AN UP RESPIR INFECT;PATIENTS SEEN FOR CONSULTATION ONLY,NOT FOR CONT CARE)] 2014 [facility] SUBSEQ CARE VISIT () [EXCLS:PATIENTS WHO ARE SEEN FOR A CONDITION UNREL TO / CARE (EG,AN UP RESPIR INFECT;PATIENTS SEEN FOR CONSULTATION ONLY,NOT FOR CONT CARE)] 2014 [facility] NON-STRESS TEST 2014 [facility] BREAST PUMP, ELECTRIC (AC AND/OR DC), ANY TYPE 2014 [facility] CHIROPRACTIC MANIPULATIVE TREATMENT (CMT); SPINAL, 3-4 REGIONS 2014 [facility] PATIENT EDUCATION, NOT OTHERWISE CLASSIFIED, NON-PHYSICIAN PROVIDER, GROUP, PER SESSION 2014 [facility] PATIENT EDUCATION, NOT OTHERWISE CLASSIFIED, NON-PHYSICIAN PROVIDER, GROUP, PER SESSION 2014 [facility] PATIENT EDUCATION, NOT OTHERWISE CLASSIFIED, NON-PHYSICIAN PROVIDER, GROUP, PER SESSION 2014 [facility] TETANUS, DIPHTHERIA TOXOIDS AND ACELLULAR PERTUSSIS VACCINE (TDAP), WHEN ADMINISTERED TO INDIVIDUALS 7 YEARS OR OLDER, FOR INTRAMUSCULAR USE 2014 [facility] SUBSEQ CARE VISIT () [EXCLS:PATIENTS WHO ARE SEEN FOR A CONDITION UNREL TO / CARE (EG,AN UP RESPIR INFECT;PATIENTS SEEN FOR CONSULTATION ONLY,NOT FOR CONT CARE)] 2014 [facility] PATIENT EDUCATION, NOT OTHERWISE CLASSIFIED, NON-PHYSICIAN PROVIDER, GROUP, PER SESSION 2014 [facility] CHIROPRACTIC MANIPULATIVE TREATMENT (CMT); EXTRASPINAL, 1 OR MORE REGIONS 2014 [facility] PURE TONE AUDIOMETRY (THRESHOLD); AIR ONLY 2014 [facility] GRADIENT COMPRESSION STOCKING, THIGH LENGTH, 18-30 MMHG, EACH 2014 [facility] NON-STRESS TEST 2014 [facility] CHIROPRACTIC MANIPULATIVE TREATMENT (CMT); EXTRASPINAL, 1 OR MORE REGIONS 2014 [facility] SUBSEQ CARE VISIT () [EXCLS:PATIENTS WHO ARE SEEN FOR A CONDITION UNREL TO / CARE (EG,AN UP RESPIR INFECT;PATIENTS SEEN FOR CONSULTATION ONLY,NOT FOR CONT CARE)] 2014 [facility] THERAPEUTIC PROCEDURE(S), GROUP (2 OR MORE INDIVIDUALS) 2014 [facility] CHIROPRACTIC MANIPULATIVE TREATMENT (CMT); EXTRASPINAL, 1 OR MORE REGIONS 2014 [facility] THERAPEUTIC PROCEDURE(S), GROUP (2 OR MORE INDIVIDUALS) 2014 [facility] CHIROPRACTIC MANIPULATIVE TREATMENT (CMT); EXTRASPINAL, 1 OR MORE REGIONS 2014 [facility] DOPPLER ECHOCARDIOGRAPHY, , PULSED WAVE AND/OR CONTINUOUS WAVE WITH SPECTRAL DISPLAY; COMPLETE 2014 [facility] SELF-CARE/HOME MANAGMENT TRAIN (EG,ACT OF DAILY LIVING (ADL) &COMPENSAT TRAIN,MEAL PREPARATION,SAFETY PROCS,AND INSTRUCT IN USE OF ASST TECHNOLOGY DEV/ADPT EQUIP) DIR ONE-ON-ONE CONT,EA 15 MINUTES 2014 [facility] SUBSEQ CARE VISIT () [EXCLS:PATIENTS WHO ARE SEEN FOR A CONDITION UNREL TO / CARE (EG,AN UP RESPIR INFECT;PATIENTS SEEN FOR CONSULTATION ONLY,NOT FOR CONT CARE)] 2014 [facility] SELF-CARE/HOME MANAGMENT TRAIN (EG,ACT OF DAILY LIVING (ADL) &COMPENSAT TRAIN,MEAL PREPARATION,SAFETY PROCS,AND INSTRUCT IN USE OF ASST TECHNOLOGY DEV/ADPT EQUIP) DIR ONE-ON-ONE CONT,EA 15 MINUTES 2014 [facility] THERAPEUTIC PROCEDURE(S), GROUP (2 OR MORE INDIVIDUALS) 2014 [facility] SELF-CARE/HOME MANAGMENT TRAIN (EG,ACT OF DAILY LIVING (ADL) &COMPENSAT TRAIN,MEAL PREPARATION,SAFETY PROCS,AND INSTRUCT IN USE OF ASST TECHNOLOGY DEV/ADPT EQUIP) DIR ONE-ON-ONE CONT,EA 15 MINUTES 2014 [facility] SUBSEQ CARE VISIT () [EXCLS:PATIENTS WHO ARE SEEN FOR A CONDITION UNREL TO / CARE (EG,AN UP RESPIR INFECT;PATIENTS SEEN FOR CONSULTATION ONLY,NOT FOR CONT CARE)] 2014 [facility] ULTRASOUND, UTERUS, REAL TIME WITH IMAGE DOCUMENTATION, LIMITED (EG, HEART BEAT, PLACENTAL LOCATION, POSITION AND/OR QUALITATIVE AMNIOTIC FLUID VOLUME), 1 OR MORE FETUSES 2014 [facility] INITIAL CARE VISIT (REPORT AT 1ST ENCOUN W HEALTH RN INFUSION PROVIDING OBSTETRIC CARE. REPORT ALSO DATE OF VISIT &,IN A SEPARATE FIELD,THE DATE OF THE LAST MENSTRUAL PERIOD) 2014 [facility] PATIENT EDUCATION, NOT OTHERWISE CLASSIFIED, NON-PHYSICIAN PROVIDER, GROUP, PER SESSION 2014 [facility] ULTRASOUND, UTERUS, REAL TIME WITH IMAGE DOCUMENTATION, LIMITED (EG, HEART BEAT, PLACENTAL LOCATION, POSITION AND/OR QUALITATIVE AMNIOTIC FLUID VOLUME), 1 OR MORE FETUSES 2014 [facility] INJECTION, CEFTRIAXONE SODIUM, PER 250 MG 2014 [facility] SELF-CARE/HOME MANAGMENT TRAIN (EG,ACT OF DAILY LIVING (ADL) &COMPENSAT TRAIN,MEAL PREPARATION,SAFETY PROCS,AND INSTRUCT IN USE OF ASST TECHNOLOGY DEV/ADPT EQUIP) DIR ONE-ON-ONE CONT,EA 15 MINUTES 2014 [facility] SELF-CARE/HOME MANAGMENT TRAIN (EG,ACT OF DAILY LIVING (ADL) &COMPENSAT TRAIN,MEAL PREPARATION,SAFETY PROCS,AND INSTRUCT IN USE OF ASST TECHNOLOGY DEV/ADPT EQUIP) DIR ONE-ON-ONE CONT,EA 15 MINUTES 2014 [facility] ACUPUNCTURE, 1/MORE NEEDLES; W ELECTRICAL STIMULATION, EA ADDITIONAL 15 MINUTES, PERSONAL ONE-ON-ONE CONTACT W THE PATIENT, W RE-INSERTION, NEEDLE(S) (LIST SEPARATELY ADDITION CODE, 1 PROCEDURE) 2014 [facility] THERAPEUTIC PROCEDURE, 1 OR MORE AREAS, EACH 15 MINUTES; THERAPEUTIC EXERCISES TO DEVELOP STRENGTH AND ENDURANCE, RANGE OF MOTION AND FLEXIBILITY 2014 [facility] MANUAL THERAPY TECHNIQUES (EG, MOBILIZATION/ MANIPULATION, MANUAL LYMPHATIC DRAINAGE, MANUAL TRACTION), 1 OR MORE REGIONS, EACH 15 MINUTES 2014 [facility] OSTEOPATHIC MANIPULATIVE TREATMENT (OMT); 1-2 BODY REGIONS INVOLVED 2014 [facility] ACUPUNCTURE, 1/MORE NEEDLES; W ELECTRICAL STIMULATION, EA ADDITIONAL 15 MINUTES, PERSONAL ONE-ON-ONE CONTACT W THE PATIENT, W RE-INSERTION, NEEDLE(S) (LIST SEPARATELY ADDITION CODE, 1 PROCEDURE) 2014 [facility] SELF-CARE/HOME MANAGMENT TRAIN (EG,ACT OF DAILY LIVING (ADL) &COMPENSAT TRAIN,MEAL PREPARATION,SAFETY PROCS,AND INSTRUCT IN USE OF ASST TECHNOLOGY DEV/ADPT EQUIP) DIR ONE-ON-ONE CONT,EA 15 MINUTES 2014 [facility] ACUPUNCTURE, 1/MORE NEEDLES; W ELECTRICAL STIMULATION, EA ADDITIONAL 15 MINUTES, PERSONAL ONE-ON-ONE CONTACT W THE PATIENT, W RE-INSERTION, NEEDLE(S) (LIST SEPARATELY ADDITION CODE, 1 PROCEDURE) 2014 [facility] ACUPUNCTURE, 1/MORE NEEDLES; W ELECTRICAL STIMULATION, EA ADDITIONAL 15 MINUTES, PERSONAL ONE-ON-ONE CONTACT W THE PATIENT, W RE-INSERTION, NEEDLE(S) (LIST SEPARATELY ADDITION CODE, 1 PROCEDURE) 2014 [facility] MEDICAL NUTRITION THERAPY; GROUP (2 OR MORE INDIVIDUAL(S)), EACH 30 MINUTES 2014 [facility] HEALTH AND BEHAVIOR INTERVENTION, EACH 15 MINUTES, [id number]; GROUP (2 OR MORE PATIENTS) 2014 [facility] EDUCATION &TRAINING, PATIENT SELF-MGT QUALIFIED, NONPHYSICIAN HEALTH RN INFUSION USING STANDARDIZED CURRICULUM, [id number]-IN-ODOT W THE PATIENT (COULD INCL CAREGIVER/FAMILY) EA 30 MIN; 5-8 PATIENTS 2014 [facility] HEALTH AND BEHAVIOR INTERVENTION, EACH 15 MINUTES, [id number]; GROUP (2 OR MORE PATIENTS) 2014 [facility] EDUCATION &TRAINING, PATIENT SELF-MGT QUALIFIED, NONPHYSICIAN HEALTH RN INFUSION USING STDIZED CURRICULUM, TSYF-TO-PTRZ W THE PATIENT (COULD INCL CAREGIVER/FAMILY) EA 30 MIN; INDIVIDUAL PATIENT 2014 [facility] ARTHROCENTESIS, ASPIRATION AND/OR INJECTION, MAJOR JOINT OR BURSA (EG, SHOULDER, HIP, KNEE, SUBACROMIAL BURSA); WITHOUT ULTRASOUND GUIDANCE 2014 [facility] THERAPEUTIC ACTIVITIES, DIRECT (ONE-ON-ONE) PATIENT CONTACT (USE OF DYNAMIC ACTIVITIES TO IMPROVE FUNCTIONAL PERFORMANCE), EACH 15 MINUTES 2014 [facility] APPLICATION OF A MODALITY TO 1 OR MORE AREAS; HOT OR COLD PACKS 2014 [facility] APPLICATION OF A MODALITY TO 1 OR MORE AREAS; HOT OR COLD PACKS 2013 [facility] PHYSICAL THERAPY RE-EVALUATION 2013 [facility] THERAPEUTIC PROCEDURE, 1 OR MORE AREAS, EACH 15 MINUTES; THERAPEUTIC EXERCISES TO DEVELOP STRENGTH AND ENDURANCE, RANGE OF MOTION AND FLEXIBILITY 2013 [facility] THERAPEUTIC PROCEDURE, 1 OR MORE AREAS, EACH 15 MINUTES; THERAPEUTIC EXERCISES TO DEVELOP STRENGTH AND ENDURANCE, RANGE OF MOTION AND FLEXIBILITY 2013 [facility] APPLICATION OF A MODALITY TO 1 OR MORE AREAS; HOT OR COLD PACKS 2013 [facility] THERAPEUTIC PROCEDURE, 1 OR MORE AREAS, EACH 15 MINUTES; THERAPEUTIC EXERCISES TO DEVELOP STRENGTH AND ENDURANCE, RANGE OF MOTION AND FLEXIBILITY 2013 [facility] SELF-CARE/HOME MANAGMENT TRAIN (EG,ACT OF DAILY LIVING (ADL) &COMPENSAT TRAIN,MEAL PREPARATION,SAFETY PROCS,AND INSTRUCT IN USE OF ASST TECHNOLOGY DEV/ADPT EQUIP) DIR ONE-ON-ONE CONT,EA 15 MINUTES 2013 [facility] APPLICATION OF A MODALITY TO 1 OR MORE AREAS; HOT OR COLD PACKS 2013 [facility] APPLICATION OF A MODALITY TO 1 OR MORE AREAS; HOT OR COLD PACKS 2013 [facility] THERAPEUTIC ACTIVITIES, DIRECT (ONE-ON-ONE) PATIENT CONTACT (USE OF DYNAMIC ACTIVITIES TO IMPROVE FUNCTIONAL PERFORMANCE), EACH 15 MINUTES 2013 [facility] PURE TONE AUDIOMETRY (THRESHOLD); AIR ONLY 2013 [facility] Acupunct One/More [place] W/ Stim Addl 15 Min W/ Reinsertion Acupunct One/More [place] W/ Stim Addl 15 Min W/ Reinsertion [id number] 2014 FELIX SCOTT Acupunct One Or More [place] W/ Stimulation Initial 15 Min Acupunct One Or More [place] W/ Stimulation Initial 15 Min [id number] 2014 FELIX SCOTT Modalities Infrared Treatment Modalities Infrared Treatment 24838 2014 FELIX SCOTT Osteopathic Manip Treatment (OMT) 1-2 Body Regions Involved Osteopathic Manip Treatment (OMT) 1-2 Body Regions Involved [id number] 2014 CANDIS COATS See Objective for pre-treatment assessment: Right ilium posterior rotation OMT with cavitation = no pain with SIJ thrust. 010 pain after treatment. CONSENT prior to manipulation treatment: verbal consent was obtained from the patient prior to the initiation of manipulation treatment including the risks and benefits of such treatment. Additionally, assessment was made pre- and post treatment for effects and these were documented as above. [facility] Phys Therapy Education Self Care Training - Per 15 Minutes Phys Therapy Education Self Care Training - Per 15 Minutes [id number] 2014 CANDIS COATS Pnt education = 10 minutes [facility] Osteopathic Manip Treatment (OMT) 1-2 Body Regions Involved Osteopathic Manip Treatment (OMT) 1-2 Body Regions Involved [id number] 2014 CANDIS COATS See Objective for pre-treatment assessment: Right ilium posterior rotation OMT with cavitation = no click noted with hip flexion after treatment. CONSENT prior to manipulation treatment: verbal consent was obtained from the patient prior to the initiation of manipulation treatment including the risks and benefits of such treatment. Additionally, assessment was made pre- and post treatment for effects and these were documented as above. [facility] Physical Medicine Physical Therapy Evaluation Physical Medicine Physical Therapy Evaluation 25575 2014 CANDIS COATS [facility] Acupunct One/More [place] W/ Stim Addl 15 Min W/ Reinsertion Acupunct One/More [place] W/ Stim Addl 15 Min W/ Reinsertion 21621 2014 FELIX SCOTT Ear Acupuncture 1 insertion; no sstimTrev Grant Acupunct One Or More [place] W/ Stimulation Initial 15 Min Acupunct One Or More [place] W/ Stimulation Initial 15 Min 89583 2014 FELIX SCOTT Modalities Infrared Treatment Modalities Infrared Treatment 18694 2014 FELIX SCOTT Acupunct One/More [place] W/ Stim Addl 15 Min W/ Reinsertion Acupunct One/More [place] W/ Stim Addl 15 Min W/ Reinsertion 06825 2014 FELIX SCOTT Acupunct One Or More [place] W/ Stimulation Initial 15 Min Acupunct One Or More [place] W/ Stimulation Initial 15 Min 48664 2014 FELIX SCOTT Modalities Infrared Treatment Modalities Infrared Treatment 28380 2014 FELIX SCOTT Acupunct One/More [place] W/ Stim Addl 15 Min W/ Reinsertion Acupunct One/More [place] W/ Stim Addl 15 Min W/ Reinsertion 47225 2014 FELIX SCOTT Acupunct One Or More [place] W/ Stimulation Initial 15 Min Acupunct One Or More [place] W/ Stimulation Initial 15 Min 58026 2014 FELIX SCOTT Modalities Infrared Treatment Modalities Infrared Treatment 62823 2014 FELIX SCOTT Medical Nutrition Therapy Group (2 or More Individual(s)) Medical Nutrition Therapy Group (2 or More Individual(s)) [id number] 2014 KELVIN ANAYA [facility] Health And Behav Intervention, Each 15 Min Grp (2 Or More) Health And Behav Intervention, Each 15 Min Grp (2 Or More) 34145 2014 [place] [facility] Patient Counseling Medical Management Five To Eight Patients Patient Counseling Medical Management Five To Eight Patients [id number] 2014 FLAQUITO JACOBSON [facility] Health And Behav Intervention, Each 15 Min Grp (2 Or More) Health And Behav Intervention, Each 15 Min Grp (2 Or More) 63894 2014 [place] S [facility] Patient Counseling Medical Management Individual Patient Patient Counseling Medical Management Individual Patient [id number] 2014 FELIX SCOTT 1) Patient given short explanation of Acupuncture, what it is how it works and how it may be able to help treat pain. Education includes: what acupuncture is, how it works, information on Acupuncture classes, and scheduling, Nutritional counseling, supplement counseling, information and feedback I expect from patients at every treatment, no show and cancellation policies, information and instruction on self-treatment tools and techniques, information on other classes offered in our Dept. 2) Patient given handout How to make the most of your Acupuncture Treatment and it was reviewed. Patient said that understood handout. Rudy Acupunct One/More [place] W/O Stim Addl 15 Min W/ Reinsert Acupunct One/More [place] W/O Stim Addl 15 Min W/ Reinsert 75646 2014 FELIX SCOTT Acupunct One Or More [place] W/O Stimulation Initial 15 Min Acupunct One Or More [place] W/O Stimulation Initial 15 Min 33361 2014 FELIX SCOTT Corticosteroids Injection Intraarticular Right Hip Corticosteroids Injection Intraarticular Right Hip 2014 ADELINA MONDRAGON PROCEDURE- Pt has h/o moderate to severe pain recalcitrant to all more conservative measures and therefore I have consented for a corticosteroid injection for pain palliation to allow for functional rehabilitation. Consent obtained and timeout accomplished 3 cc of Lidocaine 1% without epi, 3 cc of ropivacaine 0.5% without epi, 0.5 cc of Decadron 10 mg/mL, 0.5 cc of Kenalog 40 mg/mL , and 1 cc of sodium bicarbonate 8.4%. Area prepped with Chlorhexadine Prep Mixture injected into the right trochanteric bursa in a fan distribution with a 27-gauge 1 1/2needle Band-Aid applied to area Patient tolerated procedure well and had immediate relief/improveme nt in local area Continue icing for least 3 days and other conservative measures, RTC in 1 week if no improvement or earlier if any other problems or concerns such as increased swelling, increased redness, fevers or any of the problems concerns Rudy PT A e ment Kinetic Training PT Assessment Kinetic Training 45590 2014 [place] Physical Medicine Physical Therapy Re-Evaluation Physical Medicine Physical Therapy Re-Evaluation 38095 2014 [place] Physical Therapy: ___ Se ion Segments, 15 Minutes Each Physical Therapy: ___ Session Segments, 15 Minutes Each 61625 2014 VALERIO BORRERO 44min [facility] Modalities Cryotherapy Cold Packs Modalities Cryotherapy Cold Packs 76199 2014 VALERIO BORRERO 10min [facility] Modalities Cryotherapy Cold Packs Modalities Cryotherapy Cold Packs 36670 2013 RAMONA WISEMAN Physical Therapy: ___ Se ion Segments, 15 Minutes Each Physical Therapy: ___ Session Segments, 15 Minutes Each 82271 2013 RAMONA WISEMAN Physical Medicine Physical Therapy Re-Evaluation Physical Medicine Physical Therapy Re-Evaluation 13821 2013 [place] PT A e ment Kinetic Training PT Assessment Kinetic Training 34269 2013 [place] Modalities Cryotherapy Cold Packs Modalities Cryotherapy Cold Packs 83742 2013 NAYE JUSTICE Physical Therapy: ___ Se ion Segments, 15 Minutes Each Physical Therapy: ___ Session Segments, 15 Minutes Each 69434 2013 NAYE JUSTICE Physical Therapy: ___ Se ion Segments, 15 Minutes Each Physical Therapy: ___ Session Segments, 15 Minutes Each 05437 2013 RAMONA WISEMAN Modalities Cryotherapy Cold Packs Modalities Cryotherapy Cold Packs 85546 2013 NAYE JUSTICE Physical Therapy: ___ Se ion Segments, 15 Minutes Each Physical Therapy: ___ Session Segments, 15 Minutes Each 59236 2013 NAYE JUSTICE Physical Therapy: ___ Se ion Segments, 15 Minutes Each Physical Therapy: ___ Session Segments, 15 Minutes Each [id number] 2013 RAMONA WISEMAN Phys Therapy Education Self Care Training - Per 15 Minutes Phys Therapy Education Self Care Training - Per 15 Minutes 92285 2013 NAYE JUSTICE Modalities Cryotherapy Cold Packs Modalities Cryotherapy Cold Packs 32265 2013 NAYE JUSTICE Physical Therapy: ___ Se ion Segments, 15 Minutes Each Physical Therapy: ___ Session Segments, 15 Minutes Each 70025 2013 NAYE JUSTICE Exercise equipment 2013 NAYE JUSTICE Physical Therapy: ___ Se ion Segments, 15 Minutes Each Physical Therapy: ___ Session Segments, 15 Minutes Each 84491 2013 VINHNAYE [facility] Modalities Cryotherapy Cold Packs Modalities Cryotherapy Cold Packs 54695 2013 VINHNAYE [facility] Modalities Cryotherapy Cold Packs Modalities Cryotherapy Cold Packs 97636 2013 RAMONA WISEMAN [facility] Physical Therapy: ___ Se ion Segments, 15 Minutes Each Physical Therapy: ___ Session Segments, 15 Minutes Each 09067 2013 RAMONA WISEMAN [facility] PT A e ment Kinetic Training PT Assessment Kinetic Training 54048 2013 [place] Physical Medicine Physical Therapy Evaluation Physical Medicine Physical Therapy Evaluation 85643 2013 [place] Threshold Audiogram (Pure Tone) Threshold Audiogram (Pure Tone) 50604 2013 TAISHA GUARDADO [facility] Training And Self-Care Skills Training And Self-Care Skills 79192 2013 CHRIS PITTMAN home program 10 mins: figure 4 stretch, kneeling hip flexor stretch, lumbar rotation stretch, supine quad/hip flexor stretch. [facility] Physical Medicine Physical Therapy Evaluation Physical Medicine Physical Therapy Evaluation 50883 2013 CHRIS PITTMAN chronic right hip pain, negative MRI, presents with mild loss of AMNA ROM, and hip extension, very TTP over right hip flexor, greater trochanter, will be leaving for [place] next week, pt should follow up at next duty station for P.T. treatment. [facility] Arthrocentesis Injection Of Bursa Of Major Joint Arthrocentesis Injection Of Bursa Of Major Joint 30603 2013 TOYA CORONADO [facility] Vaccines Viral Yellow Fever Vaccines Viral Yellow Fever 44302 2012 SADIE CRAIN Yellow Fever; Series #: 1; .5 mL; SC; Left Arm; Mfg: Sanofi Pasteur; Lot: [id number]. [facility] Hepatitis A And Hepatitis B (Intramuscular Use) Adult Dosage Hepatitis A And Hepatitis B (Intramuscular Use) Adult Dosage 53292 2012 SADIE CRAIN Hep A - Hep B (Twinrix); Series #: 2; 1.0 mL; IM; Left Arm; Mfg: TaskBeatine; Lot: [id number]. [facility] Immunization Administration Each Additional Vaccine Immunization Administration Each Additional Vaccine 34415 2012 [facility] [place] [facility] Immunization Admin By Intranasal / Oral Route One Vaccine Immunization Admin By Intranasal / Oral Route One Vaccine 51996 2012 [facility] DoD Vaccines Viral Polio, Inactivated (Salk) Vaccines Viral Polio, Inactivated (Salk) 27387 2012 [facility] IPV; Series #: 1; .5 mL; SC; Left Arm; Mfg: Sanofi Pasteur; Lot: [id number]. [facility] Vaccines Viral Measles, Mumps and Rubella, Live Vaccines Viral Measles, Mumps and Rubella, Live 12125 2012 [facility] MMR; Series #: 1; .5 mL; SC; Left Arm; Mfg: Merck; Lot: [id number]. [facility] Venipuncture Venipuncture 15861 2012 KIMANI WAYNE [facility] Screening Test Of Visual Acuity, Quantitative, Bilateral Screening Test Of Visual Acuity, Quantitative, Bilateral [id number] 2012 CANDIS ESPINOZA [facility] Venipuncture Venipuncture 89879 2012 BERENICE BENAVIDES [facility] Immunization Admin Intranasal / Oral Each Additional Vaccine Immunization Admin Intranasal / Oral Each Additional Vaccine [address] Supervised Injection Intramuscular Antibiotic Supervised Injection Intramuscular Antibiotic 37965 2012 BERENICE BENAVIDES Skin Test Anergy Tuberculin Intradermal Skin Test Anergy Tuberculin Intradermal 22102 2012 BERENICE BENAVIDES IPPD; Series #: 1; .1 mL; ID; Left Arm; Mfg: Other; Lot: [id number]. [facility] Hepatitis A And Hepatitis B (Intramuscular Use) Adult Dosage Hepatitis A And Hepatitis B (Intramuscular Use) Adult Dosage 37954 2012 BERENICE BENAVIDES Hep A - Hep B (Twinrix); Series #: 1; 1.0 mL; IM; Left Arm; Mfg: [employer]Kline; Lot: [id number]. [facility] Meningococcal Conjugate Vaccine Tetravalent (A C Y W-135) 2012 BERENICE BENAVIDES Meningococcal A,C,Y,W-135 Diphtheria Conj; Series #: 1; .5 mL; IM; Left Arm; Mfg: Sanofi Pasteur; Lot: [id number]. [facility] Tdap Vaccine Tdap Vaccine 88777 2012 BERENICE BENAVIDES Tdap; Series #: 1; .5 mL; IM; Left Arm; Mfg: [employer]Kline; Lot: [id number]. [facility] Vaccines Vaccines 05979 2012 BERENICE BENAVIDES Adenovirus Type 4 and 7; Series #: 1; 2 gtts; PO; Left Arm; Mfg: Patient [employer]versation [employer]; Lot: [id number]. [facility] Immunization Administration One Vaccine Immunization Administration One Vaccine [id number] BERENICE BENAVIDES Immunization Administration Each Additional Vaccine Immunization Administration Each Additional Vaccine [id number] BERENICE BENAVIDES Audiometry Group Testing Audiometry Group Testing [address]Supervised Group Educational Services -Supervised Group Educational Services 32209 2012 GLENIS DEL VALLE Determination Of Refractive State Determination Of Refractive State 02512 2017 REJI WHITE Ophthalmological New Patient Start Comprehensive Care Ophthalmological New Patient Start Comprehensive Care 79074 2017 REJI WHITE Screening papanicolaou smear; obtaining, preparing and conveyance of cervical or vaginal smear to laboratory 2017 BROOKLYNN HENSON Preventive Medicine Counseling On Exercise & On Calcium & Vitamin D Use Preventive Medicine Counseling On Exercise & On Calcium & Vitamin D Use 4019F 2017 BROOKLYNN HENSON Cervical or vaginal cancer screening; pelvic and clinical breast examination [address]Supervised Specimen Handling / Transfer: Office To Lab -Supervised Specimen Handling / Transfer: Office To Lab 99379 2017 BROOKLYNN HENSON Psychiatric Evaluation Comprehensive Examination Interactive Psychiatric Evaluation Comprehensive Examination Interactive [id number] 2017 BRANDY HARDY Immunization Administration One Vaccine Immunization Administration One Vaccine 30021 2016 CANDIS MONTEJO [facility] Spirometry Spirometry 17486 2016 ROSA GUZMAN Baseline was abnormal w/ poor effort; 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 Normal air flow rates with no evidence of obstruction or restriction. Normal FEV1 and FVC. Normal PFT [facility] Fundus Photography Fundus Photography 60249 2016 PAVITHRA BOATENG Determination Of Refractive State Determination Of Refractive State 03227 2016 PAVITHRA BOATENG [facility] [facility] Fitting Monofocals (Not For Aphakia) [facility] Fitting Monofocals (Not For Aphakia) 72544 2016 PAVITHRA BOATENG Ophthalmological Prior Patient Start Comprehensive Care Ophthalmological Prior Patient Start Comprehensive Care 48824 2016 PAVITHRA BOATENG Visual Function Screening Visual Function Screening 15030 2016 OMEGA AQUINO Threshold Audiogram (Pure Tone) Threshold Audiogram (Pure Tone) 12392 2015 JEANIE MILLER [employer] [facility] Fitting Monofocals (Not For Aphakia) [facility] [facility] Fitting Monofocals (Not For Aphakia) 18611 2015 KIMANI VENTURA Determination Of Refractive State Determination Of Refractive State 93979 2015 KIMANI VENTURA Ophthalmological New Patient Start Comprehensive Care Ophthalmological New Patient Start Comprehensive Care 24536 2015 KIMANI VENTURA Chiropractic Manip Treatmt (CMT) Spinal Three To Four Region Chiropractic Manip Treatmt (CMT) Spinal Three To Four Region 75563 2015 LEVI BOB Chiropractic Manip Treatmt (CMT) Spinal Three To Four Region Chiropractic Manip Treatmt (CMT) Spinal Three To Four Region 84314 2015 LEVI BOB Obstetrical Services Care Visit Obstetrical Services Care Visit 0503F 2015 MERI MIKE Physical Medicine Physical Therapy Evaluation Physical Medicine Physical Therapy Evaluation 73946 2015 SHADIA RENEE Patient Counseling Medical Management Individual Patient Patient Counseling Medical Management Individual Patient 23248 2015 SHADIA RENEE Modalities Electrical Stimulation Attended Each 15 Minutes Modalities Electrical Stimulation Attended Each 15 Minutes 29642 2015 ERNST FLANNERY Install Peripheral Transcutaneous Neurostimulator Install Peripheral Transcutaneous Neurostimulator 28927 2015 ERNST FLANNERY Ultrasound Obstetric Limited Evaluation Ultrasound Obstetric Limited Evaluation 37221 2015 JADEN BARRIOS OB Services Antepartum Care Only Subsequent Single Visit OB Services Antepartum Care Only Subsequent Single Visit 0502F 2015 MERI MIKE Venipuncture Venipuncture 33974 2015 JADEN BARRIOS Non-Stre Test (___ 0,2) Non-Stress Test (___ 0,2) 67794 2015 JADEN BARRIOS Non-Stre Test (___ 0,2) Non-Stress Test (___ 0,2) 76600 2014 MERI MIKE Chiropractic Manip Treatmt (CMT) Spinal Three To Four Region Chiropractic Manip Treatmt (CMT) Spinal Three To Four Region 44840 2014 LEVI BOB OB Services Antepartum Care Only Subsequent Single Visit OB Services Antepartum Care Only Subsequent Single Visit 0502F 2014 BROOKLYNN HENSON OB Services Antepartum Care Only Subsequent Single Visit OB Services Antepartum Care Only Subsequent Single Visit 0502F 2014 MERI MIKE Non-Stre Test (___ 0,2) Non-Stress Test (___ 0,2) 52325 2014 MERI MIKE Breast pump, electric (AC and/or DC), any type 2014 SY GARCIA Preventive Medicine Group B Streptococcus During Week 35-37 Preventive Medicine Group B Streptococcus During Week 35-37 [id number] 2014 SY GARCIA OB Services Antepartum Care Only Subsequent Single Visit OB Services Antepartum Care Only Subsequent Single Visit 0502F 2014 SY GARCIA Chiropractic Manip Treatmt (CMT) Spinal Three To Four Region Chiropractic Manip Treatmt (CMT) Spinal Three To Four Region 28534 2014 LEVI BOB Patient education, not otherwise cla ified, non-physician provider, group, per se ion 2014 PILY VIDAL Patient education, not otherwise cla ified, non-physician provider, group, per se ion 2014 PILY VIDAL Patient education, not otherwise cla ified, non-physician provider, group, per se ion 2014 SURJIT MASON [facility] Immunization Administration Each Additional Vaccine Immunization Administration Each Additional Vaccine 85025 2014 HARLAN GUZMAN [facility] Tdap Vaccine Tdap Vaccine 24695 [facility] Tdap; Series #: 1; .5 mL; IM; Right Thigh; Mfg: Viibar; Lot: [id number]; VIS given ([place]: 01/02/15). [facility] Immunization Administration One Vaccine Immunization Administration One Vaccine 52320 2014 HARLAN GUZMAN [facility] OB Services Antepartum Care Only Subsequent Single Visit OB Services Antepartum Care Only Subsequent Single Visit 0502F 2014 MERI MIKE [facility] Patient education, not otherwise cla ified, non-physician provider, group, per se ion 2014 PILY VIDAL Chiropractic Manip Treatmt (CMT) Extraspinal One Or More Reg Chiropractic Manip Treatmt (CMT) Extraspinal One Or More Reg 39469 2014 LEVI BOB Chiropractic Manip Treatmt (CMT) Spinal Three To Four Region Chiropractic Manip Treatmt (CMT) Spinal Three To Four Region 78723 2014 LEVI BOB Threshold Audiogram (Pure Tone) Threshold Audiogram (Pure Tone) 20394 2014 ROE HERNANDES [facility] Gradient compre ion stocking, thigh length, 18-30 mm Hg, each 2014 BROOKLYNN HENSON OB Services Antepartum Care Only Subsequent Single Visit OB Services Antepartum Care Only Subsequent Single Visit 0502F 2014 BROOKLYNN HENSON OB Services Antepartum Care Only Subsequent Single Visit OB Services Antepartum Care Only Subsequent Single Visit 0502F 2014 MIKE RACHEL [facility] Non-Stre Test (___ 0,2) Non-Stress Test (___ 0,2) 35251 2014 JUNAID JOHNS Chiropractic Manip Treatmt (CMT) Extraspinal One Or More Reg Chiropractic Manip Treatmt (CMT) Extraspinal One Or More Reg 01713 2014 LEVI BOB Chiropractic Manip Treatmt (CMT) Spinal Three To Four Region Chiropractic Manip Treatmt (CMT) Spinal Three To Four Region 48137 2014 LEVI BOB Physical Medicine - Group Physical Therapy Se ion Physical Medicine - Group Physical Therapy Session 73479 2014 CADENCE PRINCE Chiropractic Manip Treatmt (CMT) Extraspinal One Or More Reg Chiropractic Manip Treatmt (CMT) Extraspinal One Or More Reg 66105 2014 LEVI BOB Chiropractic Manip Treatmt (CMT) Spinal Three To Four Region Chiropractic Manip Treatmt (CMT) Spinal Three To Four Region 87711 2014 LEVI BOB Physical Medicine - Group Physical Therapy Se ion Physical Medicine - Group Physical Therapy Session 88315 2014 CADENCE PRINCE Chiropractic Manip Treatmt (CMT) Extraspinal One Or More Reg Chiropractic Manip Treatmt (CMT) Extraspinal One Or More Reg 44107 2014 LEVI BOB Chiropractic Manip Treatmt (CMT) Spinal Three To Four Region Chiropractic Manip Treatmt (CMT) Spinal Three To Four Region 97686 2014 LEVI BOB Pelvic Ultrasound Doppler Echocardiography, Pelvic Ultrasound Doppler Echocardiography, 45605 2014 ZOE LOPEZ Transabd Ultrasound W/ Exam Single Or First Gestation Transabd Ultrasound W/ Exam Single Or First Gestation 78589 2014 ZOE LOPEZ Echocardiogram Echocardiogram 35797 2014 ZOE LOPEZ Physical Medicine - Group Physical Therapy Se ion Physical Medicine - Group Physical Therapy Session 60175 2014 CADENCE PRINCE OB Services Antepartum Care Only Subsequent Single Visit OB Services Antepartum Care Only Subsequent Single Visit 0502F 2014 ABIMBOLA MANN [facility] Physical Medicine - Group Physical Therapy Se ion Physical Medicine - Group Physical Therapy Session 69175 2014 SANTA RUIZ [facility] Phys Therapy Education Self Care Training - Per 15 Minutes Phys Therapy Education Self Care Training - Per 15 Minutes 26849 2014 LEVI BOB [facility] Chiropractic Manip Treatmt (CMT) Extraspinal One Or More Reg Chiropractic Manip Treatmt (CMT) Extraspinal One Or More Reg 06002 2014 LEVI BOB [facility] Chiropractic Manip Treatmt (CMT) Spinal Three To Four Region Chiropractic Manip Treatmt (CMT) Spinal Three To Four Region 66184 2014 LEVI BOB [facility] Physical Medicine - Group Physical Therapy Se ion Physical Medicine - Group Physical Therapy Session 84116 2014 SANTA RUIZ [facility] OB Services Antepartum Care Only Subsequent Single Visit OB Services Antepartum Care Only Subsequent Single Visit 0502F 2014 MIKE RACHEL [facility] Ultrasound Obstetric Limited Evaluation Ultrasound Obstetric Limited Evaluation 41959 2014 REVA TYSON [facility] OB Services Antepartum Care Only First Visit, With Report OB Services Antepartum Care Only First Visit, With Report 0500F 2014 MERI MIKE [facility] Patient education, not otherwise cla ified, non-physician provider, group, per se ion 2014 KAYLA LACEY [facility] Ultrasound Obstetric Limited Evaluation Ultrasound Obstetric Limited Evaluation 10851 2014 SY GARCIA [facility] OB Services Antepartum Care Only Subsequent Single Visit OB Services Antepartum Care Only Subsequent Single Visit 0502F 2014 SY GARCIA [facility] Phys Therapy Education Self Care Training - Per 15 Minutes Phys Therapy Education Self Care Training - Per 15 Minutes 66421 2014 YANNA CHRISTOPHER [facility] Physical Therapy: ___ Se ion Segments, 15 Minutes Each Physical Therapy: ___ Session Segments, 15 Minutes Each 54430 2014 YANNA CHRISTOPHER [facility] Phys Therapy Education Self Care Training - Per 15 Minutes Phys Therapy Education Self Care Training - Per 15 Minutes 73024 2014 YANNA CHRISTOPHER DoD Exercises A isted Exercises For ROM Exercises Assisted Exercises For ROM 81460 2014 YANNA CHRISTOPHER 8 min 1:1 assisted THERX form edited 06785 [facility] Acupunct One/More [place] W/ Stim Addl 15 Min W/ Reinsertion Acupunct One/More [place] W/ Stim Addl 15 Min W/ Reinsertion 64753 2014 FELIX SCOTT Ear Acupuncture 2 insertions- no stim. [facility] Acupunct One Or More [place] W/ Stimulation Initial 15 Min Acupunct One Or More [place] W/ Stimulation Initial 15 Min 78032 2014 FELIX SCOTT Modalities Infrared Treatment Modalities Infrared Treatment 04389 2014 FELIX SCOTT Physical Therapy: ___ Se ion Segments, 15 Minutes Each Physical Therapy: ___ Session Segments, 15 Minutes Each 84959 2014 CANDIS COATS THEREX: instruction and demonstration = 10 minutes. 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 Social History Type Response Date Comment Sourc e Tobacco smoking status NHIS VA-TOBACCO FORMER USER 03/16/2024 [facility] History of tobacco use SD-TOBACCO QUIT 1 TO < 5 YRS 03/16/2024 [facility] History of tobacco use VA-TOBACCO FORMER USER 03/16/2023 [facility] History of tobacco use SD-TOBACCO FORMER USER 08/26/2021 [facility] This section is an empty social history section. [facility]
--- OUTSIDE RECORDS SUMMARY | 2025-04-20 00:25 | XMS_ITS | Data Portability ---
Author Organization [facility] Address [address] [place] [address] Care Team Providers Care Pier Master Name Role Phone CANDIS RIVERA Primary Care Provider Assessment Encounter Date Assessment Date Assessment LastModified by Organization Details LastModified Time 11/26/2023 11/26/2023 Annual gynecological exam performed. Patient will come back in a year unless there are new symptoms. Not available 11/26/2023 16:46:38 11/28/2024 11/28/2024 Annual gynecological exam performed. Patient will come back in a year unless there are new symptoms. [email or web address] Not available 11/28/2024 16:42:12 Plan of Treatment Reminders Order Date Submit Date Provider Last Modified By Organization Details Last Modified Time Details Appointments None recorded. Lab None recorded. Referral None recorded. Procedures None recorded. Surgeries None recorded. Imaging None recorded. Medication Orders ParaGard T 380A 380 square mm intrauterin e device 2023 024 [place] [id number], [address], [place], [id number], 16:27:26 Patient TargetsNo targets recorded. Patient InstructionsNo instructions recorded. Reason for Referral None Reported. 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 Elect audra akins silvia d by Catia Loyd , [place] on 2023 at 9:43 AM ----- ----- ----- ----- ----- ----- ----- ----- ----- ----- ----- ----- ----- ----- ----- ----- ----- ---- COMME NT: This speci men was revie wed by a Cytot echno logis t and/o r Patho logis t (as indic ated in this repor t) after evalu ation using the Thinp rep Imagi ng Syste m. CLINI CARIDAD INFOR MATIO N: Menst rual Statu s: 11/22 LMP (if appli cable ): Clini caridad Histo ry/Pr eviou s Pap: Type of Neopl sal (if appli cable ): Signi fican t Clini caridad Findi ngs: Other Histo ry: Hormo reynaldo (if appli cable ): PAP EDUCA BETTY L NOTE: The Pap Test is a scree toi test with an inher ent false negat ilia rate. Liqui d-bas ed sampl ing may decre ase, but will not elimi domo, false negat ilia resul ts. A negat ilia resul t does not precl ude the prese nce and/o r devel opmen t of disea se, since the prese nce of abnor mal cells in the sampl e depen ds on the locat ion of the lesio n and sampl ing techn ique. Sahil nued regul ar elroy cm is the best metho d of cance r preve ntion . If repor wyatt cytol ogic findi ng do not corre late with physi caridad and/o r histo rical findi ngs, furth er inves tigat ion is recom jigna d, as clini curtis ramirez nted. Not Available [facility] (Lab) [address], [place], [address], 11/30/2023 10:46:40 11/28/19 25 11/28/2024 IMAGE GUIDE D PAP AND HPV REGAR DLESS image guided Pap, HPV regardless of Pap result SEE RESULT S BELOW CASE REPOR T: Cytol ogy Gynec ologi caridad Repor t Case: [id number] Autho noah g Provi david: Ana María Bernstein, JOCELYN Colle cted: 11/28 1628 Order ing Locat ion: [place] Patho logy Recei iris: 11/29 0318 First Scree n: Viri lang, Cathy Mulligan een: Marcella Rodgers, CT Speci men: Elroy cm Pap - Image d, Cervi x STATE MENT OF ADEQU ACY: Satis facto ry for evalu ation Trans forma tion zone compo nent prese nt Parti arjuny obscu ring blood prese nt ----- ----- ----- ----- ----- ----- ----- ----- ----- ----- ----- ----- ----- ----- ----- ----- ----- ---- FINAL DIAGN OSIS: Negat ilia for Intra epith elial Lesio n or Mariah valderrama (NIL) . Elect audra vega d by Marcella Rodgers , CT on 2024 at 0646 B[employer]LING [employer]ER ----- ----- ----- ----- ----- ----- ----- ----- ----- ----- ----- ----- ----- ----- ----- ----- ----- ---- HPV RESUL TS: HPV mRNA E6/E7 : No HPV mRNA Detec wyatt NOTE: This high risk HPV mRNA assay detec ts fourt een high- risk HPV types (16, 18, 31, 33, 35, 39, 45, 51, 52, 56, 58, 59, 66, 68) witho ut diffe renti ation . COMME NT: This speci men was revie wed by a Cytot echno logis t and/o r Patho logis t (as indic ated in this repor t) after evalu ation using the Thinp rep Imagi ng Syste m. Note: A repro cessi ng proce dure was perfo rmed on this speci men due to obscu ring blood . CLINI CARIDAD INFOR MATIO N: Menst rual Statu s: LMP (if appli cable ): Clini caridad Histo ry/Pr eviou s Pap: Type of Neopl sal (if appli cable ): Signi fican t Clini caridad Findi ngs: Other Histo ry: Hormo reynaldo (if appli cable ): PAP EDUCA BETTY L NOTE: The Pap Test is a scree toi test with an inher ent false negat ilia rate. Liqui d-bas ed sampl ing may decre ase, but will not elimi domo, false negat ilia resul ts. A negat ilia resul t does not precl ude the prese nce and/o r devel opmen t of disea se, since the prese nce of abnor mal cells in the sampl e depen ds on the locat ion of the lesio n and sampl ing techn ique. Sahil nued regul ar scree toi is the best metho d of cance r preve ntion . If repor wyatt cytol ogic findi ng do not corre late with physi caridad and/o r histo rical findi ngs, fur er inves tigat ion is recom jigna d, as clini curtis ramirez nted. Not Available [facility] (Lab) [address], [place], [address], 12/06/2024 07:50:40 11/18/19 23 11/18/2022 US, pelvi s No observ ation record ed. [email or web address] [facility] [address], [place], [address], 11/18/2022 12:36:11 11/18/19 23 11/18/2022 US, trans vagin al No observ ation record ed. [email or web address] [facility] [address], [place], [address], 11/18/2022 12:36:01 11/18/19 23 11/18/2022 US, pelvi s No observ ation record ed. [email or web address] [id number], [facility], [place], [address], 11/25/2022 14:39:22 Result Notes None recorded. Problems No Known Problems Procedures Surgical History Date Name Laterality Status Provider Name and Address Organization Details Recorded Time 10/13/20 24 IUD Insertion completed FRANCISCO SHABAZZ NP [address], [place], [address], [facility] 10/13/2024 16:26:27 11/26/19 24 Date of Last Pap Smear completed Geri Minaya [facility] 09/29/2024 17:17:48 Breast Surgery completed KATERINA Arevalo [address], [place], [address], [facility] 11/26/2023 16:55:30 Tonsillectomy completed Shellie Huston [facility] 05/22/2021 16:11:31 Imaging Results None recorded. Procedure Notes None recorded. Medical Equipment None Reported. Allergies No known drug allergies Medications Name Sig Start Date Stop Date Status Note LastModified by Organization Details LastModified Time doxycycline hyclate 100 mg capsule 05/01 completed Not Available Not Available Not Available trazodone 50 mg tablet 11/28 completed Not Available Not Available Not Available Topamax 25 mg tablet 11/28 completed Not Available Not Available Not Available fluconazole 150 mg tablet 05/01 completed Not Available Not Available Not Available sertraline 100 mg tablet 05/22 completed Not Available Not Available Not Available metronidazo le 500 mg tablet TAKE 1 TABLET BY MOUTH TWICE DAILY FOR 7 DAYS 05/01 completed Not Available Not Available Not Available buspirone 10 mg tablet 09/29 completed Not Available Not Available Not Available promethazin e 25 mg tablet TAKE 1 TABLET BY MOUTH EVERY 4-6 HOURS NEEDED NAUSEA 05/01 completed Not Available Not Available Not Available fluoxetine 10 mg capsule active Not Available Not Available Not Available ibuprofen 600 mg tablet TAKE 1 TABLET BY MOUTH EVERY 6 HOURS NEEDED PAIN 11/26 completed Not Available Not Available Not Available methylpredn isolone 4 mg tablets in a dose pack FOLLOW PACKAGE DIRECTION S 11/24 completed Not Available Not Available Not Available ParaGard T 380A 380 square mm intrauterin e device active Not Available Not Available Not Available buspirone 15 mg tablet active Not Available Not Available Not Available etonogestre l 0.12 mg-ethinyl estradiol 0.015 mg/24 hr vaginal ring 05/22 completed Not Available Not Available Not Available cyclobenzap rine 5 mg tablet 11/26 completed Not Available Not Available Not Available nitrofurant oin monohydrate /macrocryst als 100 mg capsule TAKE 1 CAPSULE BY MOUTH EVERY 12 HOURS FOR 5 DAYS 05/01 completed Not Available Not Available Not Available duloxetine 30 mg capsule,del ayed release 05/01 completed Not Available Not Available Not Available tranexamic acid 650 mg tablet Take by oral route for 5 days. 05/01 completed Not Available Not Available Not Available Vitals Date Recorded Body height Systolic blood pressure Diastolic blood pressure Provider Name and Address Organization Details Last Updated DateTime 11/25/2022 160.02 cm 116 mm[Hg] 76 mm[Hg] Savannah Mcfarland [facility] 11/25/2022 14:11:38 Date Recorded Body height Body mass index (BMI) Body weight Systolic blood pressure Diastolic blood pressure Provider Name and Address Organization Details Last Updated DateTime 11/26/2023 160.02 cm 29.6 kg/m2 20325.93 g 122 mm[Hg] 79 mm[Hg] Jagruti Toth [facility] 4 16:52:44 Date Recorded Body height Body mass index (BMI) Body weight Systolic blood pressure Diastolic blood pressure Provider Name and Address Organization Details Last Updated DateTime 11/28/2024 160.02 cm 27.9 kg/m2 34172.16 g 115 mm[Hg] 74 mm[Hg] ARTUR Al [facility] 5 16:42:46 Date Recorded Body height Body mass index (BMI) Body weight Systolic blood pressure Diastolic blood pressure Provider Name and Address Organization Details Last Updated DateTime 09/29/2024 160.02 cm 28.5 kg/m2 38544.37 g 117 mm[Hg] 73 mm[Hg] Geri Minaya [facility] 4 17:21:10 Date Recorded Body height Body mass index (BMI) Body weight Systolic blood pressure Diastolic blood pressure Provider Name and Address Organization Details Last Updated DateTime 10/13/2024 160.02 cm 28.3 kg/m2 36415.78 g 109 mm[Hg] 72 mm[Hg] Denice Virgen [facility] 4 16:08:55 Social History Question Answer Notes LastModified by Organizat ion Details LastModified Time Tobacco Smoking Status Former Smoker Jagruti Toth [facility] 11/26/2023 16:53:45 Do You Have An Advance Directive? Yes Information not available 05/22/2021 How Many Years Have You Consumed Alcohol? 5 Information not available 05/22/2021 Are You Blind Or Do You Have Difficulty Seeing? No Information not available 05/22/2021 What Is Your Level Of Caffeine Consumption? Occasional Information not available 05/22/2021 How Much Tobacco Do You Chew? None Information not available 05/22/2021 In The 14 Days Before Symptom Onset, Have You Had Close Contact With A Laboratory-confir med COVID-19 While That Case Was Ill? No Information not available 05/22/2021 In The 14 Days Before Symptom Onset, Have You Had Close Contact With A Person Who Is Under Investigation For COVID-19 While That Person Was Ill? No Information not available 05/22/2021 Have You Been To An Area Known To Be High Risk For COVID-19? No Information not available 05/22/2021 Are You Deaf Or Do You Have Serious Difficulty Hearing? No Information not available 05/22/2021 What Type Of Diet Are You Following? REGULAR Information not available 05/22/2021 What Is The Highest Grade Or Level Of School You Have Completed Or The Highest Degree You Have Received? [id number] Information not available 05/22/2021 When Did You Quit Smoking? 1-5yearssincel home Quit About 2020 Information not available 11/26/2023 Are There Any Guns Present In Your Home? Yes Information not available 05/22/2021 Do You Use Protection During Sex? No [email or web address] Information not available 09/29/2024 Do You Use Your Seat Belt Or Car Seat Routinely? Yes Information not available 05/22/2021 Do You Have Smoke And Carbon Monoxide Detectors In Your Home? Yes Information not available 05/22/2021 How Much Tobacco Do You Smoke? No Information not available 05/22/2021 Do You Use Sunscreen Routinely? Yes Information not available 05/22/2021 Have You Used IV Drugs? No Information not available 05/22/2021 Do You Have Difficulty Walking Or Climbing Stairs? No [email or web address] Information not available 11/25/2022 Sex: Unknown Functional Status Question Answer Note LastModified by Organizat ion Details LastModified Time Do you use any illicit or recreational drugs? No Information not available 05/22/2021 What is your level of alcohol consumption? Occasional Information not available 05/22/2021 Are you able to walk? YESWOREST Information not available 05/22/2021 Are you able to care for yourself? Yes [email or web address] Information n ot available 11/25/2022 What is your occupation? [employer] [email or web address] Information not available 09/29/2024 Do you have difficulty dressing or bathing? No [email or web address] Information not available 11/25/2022 What is your exercise level? Occasional Information not available 05/22/2021 Mental Status Question Answer Note LastModified by Organization D etails LastModified Time Do you feel stressed (tense, restless, nervous, or anxious, or unable to sleep at night)? [id number] Information not available 05/22/2021 Family History Relationship Description Onset Age of this Age Resolved Age Notes LastModified by Organization Details LastModified Time Paternal Grandfather Malignant neoplasm of lung Not available 2020 16:11:00 Maternal Grandmother Malignant neoplasm of lung Not available 2020 16:11:00 Mother Anxiety disorder Not available 2020 16:11:00 Mother Depressive disorder Not available 2020 16:11:00 Mother Malignant tumor of breast 55 [email or web address] Not available 2024 16:21:00 Mother Disorder of thyroid gland Not available 2020 16:11:00 Mother Malignant tumor of breast Not available 2021 13:58:06 Father Kidney disease Not available 2020 16:11:00 Father Cerebrovascu lar accident Not available 13:58:06 Maternal Grandfather Diabetes mellitus Not available 2021 13:58:06 Unspecified Relation Malignant tumor of breast Great grandm other [email or web address] Not available 10/14/2021 14:03:20 Unspecified Relation Malignant neoplasm of ovary Great Grandm other Not available 12/26/2021 13:58:06 Notes:Cancer risk form compl ete 05/22/2021 Medical History Condition Response Allergies (Food, seasonal, environmental ) N Other N Blood Transfusion N Drug/Latex Allergies/Reactions N Breast Cancer N Dermatologic Disorders N Lung Disease N Defects or Inherited Disease N Breast Problem N Gestational Diabetes Y Hematologic disorders N Anesthesia Complications N History of STI N Deep Vein Thrombosis N Polycystic ovary syndrome N Anxiety Disorder N Autoimmune disease N Arthritis N Infertility N Polyps N Acid Reflux (GERD) N History of abnormal pap N Cancer N Stroke N Varicosities N Neurologic/Epilepsy N Endometriosis N High Cholesterol N Headaches N Fibromyalgia N Kidney Disease N Heart Problems N Kidney or Bladder Problems N Thyroid Problems N GI Problems N Eating Disorder N Anemia N Art (IVF or FET) N Psychiatric Illness N Ovarian Cancer N Diabetes N Pulmonary (TB, Asthma) N Hepatitis/Liver Disease N No Past Medical History N Eczema N Urinary Tract Infection N Abuse/Domestic Violence N Asthma N Trauma/Violence N Depression/ depression N Heart Disease N Pre-Eclampsia N Hypertension N Osteoporosis N Thrombophilias N Gynecological History Statement/Question Response Abnormal Pap N Flow Moderate Date of LMP 11/28/2024 On BCP's at Conception? N N Was last menstrual period normal Y STIs/STDs N HPV Vaccine Y Current Control Method IUD Age at First Child 20 Are cycles usually normal N Sexually Active? N None Menses Monthly N Age of first menstrual cycle 11 Date of Last Pap Smear 11/26/2023 Sexual Problems? N Desired Control Method IUD LMP Definite N Obstetrics History GPAL:G 2 P 2 0 0 2 Type Value Full Term 2 Living 2 Total 2 Past Encounters Encounter ID Performer Location Encounter Start Date Encounter Closed Date Diagnosis/Indication Diagnosis SNOMED-CT Code Diagnosis ICD10 Code Diagnosis Note [id number] Zohra Machado [facility] [address] [address] 05/22/2021 15:24:23 05/23/2021 14:12:12 Gynecologic examination 65797127 Z01.419 Take Calcium with Vitamin D 1200mg daily if not receiving in daily diet. It is strongly advised to have an annual flu shot and up can obtain at most pharmacies . If you have not had a TDap shot in the last 10 years you should obtain one as well. Discussed with patient & provided with informatio n regarding Gardisil vaccine to prevent the 4 strains for HPV that cause cervical cancer if under age 26. Encourage safe sexual practices, to use condoms and limit partners if not already in a monogamous relationsh ip. Do monthly self breast exams. Have mammogram yearly or every other year depending on family history. BRCA testing is now available for patients with strong genetic history of female cancer. If interested contact the office. Engage in daily exercise of low impact aerobic exercise 45-60 minutes 4-5 times weekly. Avoid tobacco and illicit drugs as well as using moderation with alcohol intake less than 1-2 8 oz beverages daily. This lifestyle behavior pattern will lead to less health conditions and longer life span. If BMI greater than 25 weight watchers or dietary consult advised. Patient received above instructio ns, and questions have been answered. If you have any questions please call or respond to this email. Patient was made aware of the patient portal and may obtain a paper copy of today's plan if desired. Pap doneSTD declinedPa p q3yr if normal pap/hpv hx per asccp unless otherwise indicated. Reduced libido 7021650 R 68.82 Under a lot of stress with recent diagnosis of her mother with breast cancer.Has two kids under 6yo and works outside the home.Has [employer] ip with boyfriend. Feels this might be a lot of why she is not in the mood lately.We agreed to do some updated labs but patient is unsure if she really wants to pursue any other treatment unless there is a physiologi caridad issue causing this problem.Wi ll call with labs [id number] KATERINA Sosa-[facility] [address] [address] 12/26/2021 13:31:30 12/27/2021 10:31:38 Pain in pelvis 66218339 R10.2 Patient is to contact office or go to nearest ED/Urgent care if fever >/= 100.1, pain, excessive bleeding, unusual drainage or swelling in area of concern; or experienci ng worsening sx's or new onset of concerning sx's. Understand ing verbalized . All questions answered to patient satisfacti on. Menorrhagia [id number] N9 2.0 Today we agreed to update lab work to ensure no anemia or other changes in labs.In addition, an updated US will be completed for new onset of pelvic pain x 4mos plus assessing increase in period flow. Mass of left breast [id number] 7291110 N60.11 Hx of fibroadeno ma of right breast with bx-benignL eft breast nodule and this is the side that she had one instance of nipple discharge which was unable to be reproduced on exam today.Will complete imaging and return to discuss. [id number] Rafy Barnes MD [facility] [address] [address] 01/01/2022 17:56:36 01/02/2022 14:27:26 Pain in pelvis 52858329 R10.2 [id number] Zohra Machado [facility] [address] [address] 01/14/2022 13:22:35 01/14/2022 15:34:31 Pain in pelvis 20257827 R10.2 N92.0 Today we discussed TVUS which is WNL.She feels she had a normal period for her this past month with increase in dysmenorrh ea but she is extremely stressed/s ad (no suicidal ideations/ thoughts of self harm); Option to trial Lysteda moving forward if needed; prefers to stay away from hormonal options. If wants to try it call & we can send Rx in then f/u at her next [facility] if close to 05/2022. NOTE: Still awaiting approval from her insurance to move forward with breast US. But she is working on this imaging to get completed. Patient is to contact office or go to nearest ED/Urgent care if fever >/= 100.1, pain, excessive bleeding, unusual drainage or swelling in area of concern; or experienci ng worsening sx's or new onset of concerning sx's. Understand ing verbalized . All questions answered to patient satisfacti on. Time spent in visit is a total of 15 mins with at least 50% of visit consisting of counseling and review of plan of care.Addit ional precaution baudilio measures were taken to minimize potential exposure to the Covid-19 virus during this patient s visit, including available hand watch hairspring assembler upon arrive, temperatur e check and being asked a series of screening questions. All staff wore face coverings during this encounter, as well as provided additional cleaning and sanitizing of all surfaces, including countertop s, pens, chairs, door handles, light switches, etc, prior to and following the patient s visit. [id number] Rafy Barnes MD [facility] [address] [address] 04/22/2022 17:12:11 04/22/2022 17:39:22 Irregular periods 72904287 N92.6 [id number] Ana María BernsteinKATERINA [facility] [address] [address] 05/01/2022 09:51:05 05/01/2022 15:02:05 Abnormal uterine bleeding [id number] 9100 N93.9 Last period was heavier than normal, lasting 5 days, passed a few clots. Was soaking a pad every 1 hour for the first few days. Periods are normally not this heavy.Pelv ic u/s showed a non-specif ic small focus in the endometriu m, likely non-signif icant. I consulted with Dr. Barnes on this, he suggest a repeat pelvic u/s in 2 months. Likely scar tissue/non -significa nt finding. betty is not interested in hormonal methods to help with periods, her insurance does not cover tranexamic acid. She is getting new insurance soon, we discussed to call the office with new insurance and will try and see if this covered.Ur ine hCG (-) todaySTI testing orderedLab s orderedPat ient does have some pain with intercours e, described with deep penetratio n. On exam suspect some muscular tenderness , would likely benefit from pelvic floor physical therapy. She is interested in this. Referral sent. She should monitor her periods, call the office with any heavy vaginal bleeding. Hormonal options declined, will try ibuprofen 600mg every 8 hours with menses to help. Will trial tranexamic acid if she can get this covered. Time spent in visit is a total of 35 mins with at least 50% of visit consisting of counseling and review of plan of care. Venereal d isease screening [id number] Z11.3 Sexually t ransmitted infectious disease 6334814 A64 Dyspareunia 52856795 N94 .10 [id number] Rafy Barnes MD [facility] [address] [address] 06/16/2022 12:26:01 06/16/2022 13:37:06 Abnormal uterine bleeding [id number] 9100 N93.9 Irregular periods 078126 07 N92.6 [id number] Rafy Barnes MD [facility] [address] [address] 11/18/2022 11:43:33 11/18/2022 12:49:56 Irregular periods 23713900 N92.6 [id number] Ana María Bernstein JOCELYN [facility] [address],[place] [address] 11/25/2022 13:59:15 11/25/2022 14:36:03 Dysmenorrhea 976042142 N94.6 Today we reviewed updated TVUS - normal pelvic u/sStable 2mm hyperechoi c focus seen at fundal endo, likely of no significan ce and stable (likely scar tissue)Per iods have improved, clinical resource director/le ss painfulDec lines BC at this timeRTC for WWE or sooner if needed Time spent in visit is a total of 15 mins with at least 50% of visit consisting of counseling and review of plan of care. [id number] Ana María Bernstein JOCELYN [facility] [address],[place] [facility] [place] [address] 11/26/2023 16:44:03 11/27/2023 09:50:42 Gynecologic examination [id number] Z01.419 WWEBC - condomspap updatedSTI testing declineden couraged continued f/u with breast specialist routine labs UTD/PCPRTC in 1 yr or sooner if needed Take Calcium with Vitamin D daily if not receiving in daily diet.It is strongly advised to have an annual flu shot and up can obtain at most pharmacies . If you have not had a TDap shot in the last 10 years you should obtain one as well.Discu ssed with patient & provided with informatio n regarding Gardisil vaccine to prevent the 4 strains for HPV that cause cervical cancer if under age 26.Encoura ge safe sexual practices, to use condoms and limit partners if not already in a monogamous relationsh ip.Do monthly self breast exams.Enga ge in daily exercise of low impact aerobic exercise 45-60 minutes 4-5 times weekly. Avoid tobacco and illicit drugs as well as using moderation with alcohol intake less than 1-2 8 oz beverages daily. This lifestyle behavior pattern will lead to less health conditions and longer life span. If BMI greater than 25 dietary consult advised.Agustín jo received above instructio ns, and questions have been answered. If you have any questions please call or respond to this email.Catherine azalia was made aware of the patient portal and may obtain a paper copy of today's plan if desired. [id number] KATERINA Jamil [place] [address] [address] 11/28/2024 16:19:56 11/29/2024 09:20:35 Gynecologic examination [id number] Z01.419 Z11.51 EB - ParaGuard IUD (inserted 10/13/2024) normal appearing IUD strings noted on examPap - done todaySTI screen - declinedRo utine labs - PCPRTC in 1 yr or sooner if needed It is strongly advised to have an annual flu shot and up can obtain at most pharmacies . If you have not had a TDap shot in the last 10 years you should obtain one as well. Discussed with patient & provided with informatio n regarding the HPV vaccine if applicable . Encourage safe sexual practices, to use condoms and limit partners if not already in a monogamous relationsh ip. Do monthly self breast exams. BRCA testing is now available for patients with strong genetic history of female cancer. If interested contact the office. Engage in regular exercise. Avoid tobacco and illicit drugs. This lifestyle behavior pattern will lead to less health conditions and longer life span. If BMI greater than 25 dietary consult advised. Questions answered. [id number] KATERINA Jamil [place] [address] [address] 09/29/2024 17:14:13 09/30/2024 12:25:55 Contraception care management [id number] Z30.9 Discussed all BC methodsint in ParaGuard IUDr/b/a reviewed, handout givento call office with next period for insertion Time spent in visit is a total of 18 mins with at least 50% of visit consisting of counseling and review of plan of care. [id number] Rafy Barnes MD [place] [address] [address] 10/13/2024 15:38:33 10/13/2024 16:14:50 Insertion of intrauterine contraceptive device [id number] Z30.430 She has been counseled on all of the r/b/a of placement of an intrauteri ne device that include but are not limited to uterine perforatio n, injury to cervix, vagina, bladder, and bowel.Risk s of bleeding due to injury or increased irregular bleeding due to progestin effect of the device. Risks of infection would be increased within the first 21 days of placement with concomitan t cervicitis . She understand s that the device will need to be removed in this instance due to increased risk of Pelvic inflammato ry disease. Patient is aware she is at higher risk for STD and if contracted she could lose her fertility. Pt is aware that if occurs that she should contact office immediatel y to rule out ectopic which could be life threatenin g. IUD will also need to be removed and this could cause miscarriag e. Patient also informed that in the event her strings are absent or embedded at the time of removal she may need to have the IUD surgically removed. She was informed of the above and properly consented. Paragard IUD placed w/o complicati on. Patient should return to office after next period to check for string placement. Patient to expect irregular bleeding but should be seen in the ED if bleeding increases to soaking a pad an hour for at least 2 hours. She verbalized understand ing. Health Concerns Section Related Observation LastModified by Organization Detai ls LastModified Time None Recorded Concern Status LastModified by Organization Details LastModified Time None Recorded Advance Directives Directive Y: Payers Encounter Date Sequence Insurance Name Policy Number Policy Swanson Covered Member ID Swanson Member ID Guarantor Name 11/25/2022 1 [place] [id number] February Robert Marija [id number] February Robert Marija 11/25/2022 2 [place] [employer] Fani Robert Scooter [id number] February Robert YosefNecarol ann 11/26/2023 1 [place] [id number] February Robert Marija [id number] February Robert YosefNecarol ann 11/26/2023 2 [place] [facility] Fani Robert MendozaScooter [id number] February Robert Marija 09/29/2024 1 [id number] February N McNece [id number] February Robert NavasNece 09/29/2024 2 [place] [facility] February Robert Helms [id number] February Robert NavasNece 10/13/2024 1 [place] February N McNece [id number] February Robert NavasNece 10/13/2024 2 [place] [facility] February Robert Helms [id number] February Robert NavasNecarol ann 11/28/2024 1 [place] February N YosefNece [id number] February Robert NavasNecarol ann 11/28/2024 2 [place] [facility] February Robert Helms [id number] February Robert Dutton Notes Date Note Type Note Provider Name and Address Organization Details Recorded Time 11/25/2022 text/html 27yoPresents for pelvic u/s f/uu/s done to monitor 2mm hyperechoic focus seen at fundal endoPeriods have improved, 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 11/25/2022 14:22:20 11/26/2023 text/html Annual GYNReport ed bypatient.Menstrua l cycle:Normal menses Urinary symptoms:No hematuria; No incontinence Vulva:No genital lesion Vagina:Normal vaginal discharge Breast:No breast pain; No breast lump; No nipple discharge Current Contraception:Sati sfied with current contraception; Condoms Sexual complaints:No sexual complaints; No pain during intercourse; Normal libido Menopausal Symptoms:No menopausal symptoms; Normal vaginal lubrication Psychological symptoms:No depression; No anxiety; No PMDD Preventive measures:Encourage self breast examination; Encourage regular exercise; Encourage no tobacco use; Encourage regular mammograms starting age 40Notes:last pap 05/2021 - normalh/o benign right breast lump removed in 2011following with breast specialist for left breast lump/ no biopsy needed per pt KATERINA Jamil [address], [place], [address], [facility] 11/27/2023 09:33:40 09/29/2024 text/html 29yopresents for BC consultint in non-hormonal optionshad paraGuard in the past KATERINA Jamil [address], [place], [address], [facility] 09/30/2024 08:55:45 10/13/2024 text/html Patient presents for Paragard IUD insertion. Informed consent obtained. FRANCISCO SHABAZZ NP [address], [place], [address], [facility] 10/13/2024 16:27:46 11/28/2024 text/html Annual GYNReport ed bypatient.Menstrua l cycle:Normal menses Urinary symptoms:No hematuria; No incontinence Vulva:No genital lesion Vagina:Normal vaginal discharge Breast:No breast pain; No breast lump; No nipple discharge Current Contraception:Sati sfied with current contraception; Intrauterine device (iud) Sexual complaints:No sexual complaints; No pain during intercourse; Normal libido Menopausal Symptoms:No menopausal symptoms; Normal vaginal lubrication Psychological symptoms:No depression; No anxiety; No PMDD Preventive measures:Encourage self breast examination; Encourage regular exercise; Encourage no tobacco use; Encourage regular mammograms starting age 40Notes:29yo wwe and IUD string checkBC - Paraguard IUD (inserted 10/13/2024)last pap 11/26/2023 : KATERINA Dean [address], [place], [address], [facility] 11/29/2024 09:09:15 OBGyn Episode Ob Episode Information Episode Created Date Number of Fetuses Patient Bloodtype Patient rh Status Prepregnancy Weight lbs Domestic Partner Domestic Partner Phone Father Name Health Informatics Specialist Status 05/22/20 21 1 CLOSED Fetus Data First Name Last Name Admitted to NICU Weight (g) Sex Living Outcome Pediatric Complications Fetus ID Race Codes Race Delivery Type 3826.95 [id number] Full Term [id number] Vaginal Delivery Hood Calculation Initial Hood Date Initial Exam Date Initial Exam Provider Initial Ultrasound Date Last Menstrual Period Date Ultra Sound Weeks Gestation 0 Eighteen To Twenty Week Hood Update Ultra Sound Date Fundal Height At Umbil Quickening Date Ultra Sound Latest Weeks Gestation Final Hood Confirmed By Final Hood Confirmed Date Final Hood Date Ultra Sound Latest Days Gestation 0 0 Menstrual History Last Menstrual Date Menses Monthly On Bcp Conception Prior Menses Frequency Hcg Plus Date Menarche Onset Age Delivery Information Delivery Date Delivery Type Labor Anesthesia Weeks Gestation Incision Type Labor Labor Length Hrs Delivered By Post Complications Tubal Sterilization Discharge Date Comments 9 38 GDM Discharge Information Feeding Method Contraceptive Method Maternal HG B and HCT Levels Ob Episode Information Episode Created Date Number of Fetuses Patient Bloodtype Patient rh Status Prepregnancy Weight lbs Domestic Partner Domestic Partner Phone Father Name Health Informatics Specialist Status 05/22/20 21 1 CLOSED Fetus Data First Name Last Name Admitted to NICU Weight (g) Sex Living Outcome Pediatric Complications Fetus ID Race Codes Race Delivery Type 3345.24 1 Full Term [id number] Vaginal Delivery Hood Calculation Initial Hood Date Initial Exam Date Initial Exam Provider Initial Ultrasound Date Last Menstrual Period Date Ultra Sound Weeks Gestation 0 Eighteen To Twenty Week Hood Update Ultra Sound Date Fundal Height At Umbil Quickening Date Ultra Sound Latest Weeks Gestation Final Hood Confirmed By Final Hood Confirmed Date Final Hood Date Ultra Sound Latest Days Gestation 0 0 Menstrual History Last Menstrual Date Menses Monthly On Bcp Conception Prior Menses Frequency Hcg Plus Date Menarche Onset Age Delivery Information Delivery Date Delivery Type Labor Anesthesia Weeks Gestation Incision Type Labor Labor Length Hrs Delivered By Post Complications Tubal Sterilization Discharge Date Comments 5 41 Discharge Information Feeding Method Contraceptive Method Maternal HG B and HCT Levels
--- OUTSIDE RECORDS SUMMARY | 2025-04-20 00:26 | XMS_ITS ---
Author Name [facility] of [facility] ([place]) Organization [facility] Address [address] [place] [address] Care Team Providers [facility] Nurse Name Role Phone TORI COHEN Primary Care Provider Unavailvadim e Insurance Providers: All historical and current Section Date Range: From patient's date of to the date document was created. This section includes the names of all active insurance providers for the patient. Insurance Provider Type of Coverage Plan Name Start of Policy Coverage End of Policy Coverage Group Number Member ID Insurance Provider's Telephone Number Policy Swanson's Name Patient's Relationship to Policy Swanson [place] PREFERRED PROVIDER ORGANIZAT ION (PPO) FEP BASIC FAM Apr 10, 2024 [id number] 20 [phone] JOSE G EWING PATIENT [place] PREFERRED PROVIDER ORGANIZAT ION (PPO) FEP BASIC FAM Apr 10, 2024 112 [id number] 20 [phone] JOSE G EWING RIL PATIENT [place] PREFERRED PROVIDER ORGANIZAT ION (PPO) FEP BASIC FAM Apr 10, 2024 112 [id number] 20 [phone] JOSE G EWING PATIENT [place] PREFERRED PROVIDER ORGANIZAT ION (PPO) FEP BASIC FAM Apr 10, 2024 [id number] 20 [phone] JOSE G EWING PATIENT [employer] FEP ([id number]) PRESCRIPT ION FEPRX Apr 10, 2024 [id number] [phone] JOSE G EWING PATIENT [facility] (R) MEDICAID MEDIC AID Sep 09, 2018 [id number] [phone] LORI,A PRIL PATIENT Selected Encounter This section includes the information on record at [place] for the Encounter. Date/Time Encounter Type Encounter Description Reason Provider Source Jan 18, 2025 08:30 AM OFFICE O/P EST MOD 30 MIN PRIMARY CARE/MEDICINE ICD-10-CM F41.9 Anxiety disorder, unspecified COHEN,TORI A E Encounter Template Text not used by [place] Assessments - Encounter Diagnoses This section includes the primary and secondary diagnoses documented for the Encounter. Date/Time Primary/Secondary Diagnosis Diagnosis Name Provider Source Jan 18, 2025 05:03 PM PRIMARY Anxiety disorder, unspecified COHEN,TORI A [facility] Jan 18, 2025 05:03 PM SECONDARY Adjustment disorder with mixed anxiety and depressed mood COHEN,TROI A [facility] Jan 18, 2025 05:03 PM SECONDARY Low back pain, unspecified COHEN,TORI A [facility] Jan 18, 2025 05:03 PM SECONDARY Mastodynia [facility] Jan 18, 2025 05:03 PM SECONDARY Migraine with aura, not intractable, w/o status migrainosus COHEN,TORI A [facility] Jan 18, 2025 05:03 PM SECONDARY Pain in right hip [facility] Plan of Treatment: Future Appointments (+ 6 months) and Future Tests (+/- 45 days) The Plan of Treatment section includes future care activities for the patient from all [place] treatmentfacilities. This section includes future appointments and future orders which are active, pending or scheduled. Future Appointments This section includes appointments that were scheduled to occur 6 months from the date of the Encounter, up to a maximum of 20 appointments. The data comes from all [place] treatment facilities. Appointment Date/Time Appointment Type Appointme nt Facility Name Feb 14, 2025 09:00 AM AMBULATORY - MEDICINE [facility] Lab Results: +/- 30 days of the encounter This section includes the Chemistry and Hematology Lab Results on record with [place] for the patient. Radiology Reports and Pathology Reports are provided separately, in subsequent sections. Lab Results This section contains the Chemistry/Hematology Results that were resulted 30 days before or 30 daysafter the date of the Encounter. Date/Time Source Result Type Result - Unit Interpretation Reference Range Specimen Type Comment Jan 18, 2025 09:17 AM [facility] LIPID PANEL (STL) PLASMA Specimen Type: PLASMA Comment: No hemolysis noted. Ordering Provider: TORI COHEN Report Released Date/Time: Jan 18, 2025 09:05 AM Reporting Lab: [facility] [address] [place] [id number] Performing Lab: [address] [phone] CHOLESTEROL 124 mg/dL 0-200 TRIGLYCERIDE 35 mg/dL 0-150 CALCULATED LDL 71 mg/dL HDL(New) 46 mg/dL >40 Jan 18, 2025 09:17 AM [facility] COMPREHENSIVE METABOLIC PANEL PLASMA Specimen Type: PLASMA Comment: No hemolysis noted. Ordering Provider: TORI COHEN Report Released Date/Time: Jan 18, 2025 09:05 AM Reporting Lab: [facility] [address] [place] [phone] Performing Lab: [address] [phone] CREATININE 0.72 mg/dL 0.6-1.1 UREA NITROGEN 16.6 mg/dL 9.0-25.0 GLUCOSE 83 mg/dL 72-99 SODIUM 139 meq/L 136-145 POTASSIUM 4.4 meq/L 3.5-5 CHLORIDE 106 meq/L 98-107 CARBON DIOXIDE 21 meq/L L 22-31 CALCIUM 8.9 mg/dL 8.4-10.4 PROTEIN 7.2 g/dL 6-8.6 ALBUMIN 4.2 g/dL 3.4-5 TOTAL BILIRUBIN 0.5 mg/dL 0.2-1.2 ALKALINE PHOSPHATASE 57 U/L 40-150 AST/SGOT 55 U/L H 5-34 ALT/SGPT 19 U/L 8-40 EGFR (CKD-EPI 2020) 115.3 >60 Jan 18, 2025 09:17 AM [facility] HGA1C BLOOD Specimen Type: BLOOD No comment entered. Ordering Provider: TORI COHEN Report Released Date/Time: Jan 18, 2025 09:05 AM Reporting Lab: [facility] [address] [phone] Performing Lab: [place] [address] [phone] HGA1C 5.4 4.0-6.0 Jan 18, 2025 09:17 AM [facility] CBC BLOOD Specimen Type: BLOOD No comment entered. Ordering Provider: TORI COHEN Report Released Date/Time: Jan 18, 2025 09:05 AM Reporting Lab: [place] [address] [place] [phone] Performing Lab: [address] [phone] WBC 4.5 10*3/uL 3.6-11.2 RBC 3.97 10*6/uL 3.60-5.00 HGB 12.1 g/dL 11.0-14.9 HCT 36.1 32.6-43.4 MCV 90.9 fL 80.0-100.0 MCH 30.5 pg 27.0-34.0 MCHC 33.5 g/dL 33.0-36.0 PLT 275 10*3/uL 150-400 MPV 11.4 fL H 7.5-11.2 RDW 12.5 11.8-15.1 LYMPHOCYTES, AUTO % 42 MONOCYTES, AUTO % 10 NEUTROPHILS, AUTO % 44 EOSINOPHILS, AUTO % 3 BASOPHILS, AUTO % 1 LYMPHOCYTES, ABSOLUTE 1.89 10*3/uL 0.77- 4.50 MONOCYTES, ABSOLUTE 0.44 10*3/uL 0.19-0. 80 NEUTROPHILS, ABSOLUTE 1.97 10*3/uL L 2.10- 8.00 EOSINOPHILS, ABSOLUTE 0.11 10*3/uL 0.00- 0.60 BASOPHILS, ABSOLUTE 0.04 10*3/uL 0.00-0. 20 Jan 18, 2025 09:17 AM [facility] TSH W/ REFLEX FT4 (STL) PLASMA Specimen Type: PLASMA No comment entered. Ordering Provider: TORI COHEN Report Released Date/Time: Jan 18, 2025 09:05 AM Reporting Lab: [address] [phone] Performing Lab: [facility] [address] [phone] TSH 1.373 u[IU]/mL 0.47-5 Jan 18, 2025 09:17 AM [facility] VITAMIN D, 25-HYDROXY SERUM Specimen Type: SE RUM No comment entered. Ordering Provider: TORI COHEN Report Released Date/Time: Jan 18, 2025 09:05 AM Reporting Lab: [facility] [address] [facility] [phone] Performing Lab: [facility] [address] [facility] [phone] VITAMIN D, 25-HYDROXY 41.2 ng/mL 30-96 Vital Signs: All taken on the encounter date This section contains inpatient and outpatient Vital Signs collected on the date of the Encounter. Date/Time Temperature Pulse Blood Pressure Respiratory Rate SP02 Pain Height Weight Body Mass Index Source Jan 18, 2025 08:44 AM 97.8 72 120/72 18 98 5 63 148 26 [facility] Social History: Smoking Status (Most current) and Tobacco Use (All prior to encounter date) This section includes the most current, and the historical, smoking and tobacco- related health factors from the [place] facility where the Encounter took place. Current Smoking Status This section includes the most current smoking, or tobacco-related health factor, from the [place] facility where the Encounter took place. Date/Time Current Smoking Status Comment Facil ity March 16, 2024 09:30 AM VA-TOBACCO FORMER USER [facility] Tobacco Use History This section includes a history of the smoking, or tobacco-related health factors, that were collected on or before the date of the Encounter. The data comes from the [place] facility where the Encounter took place. Date/Time Smoking Status/Tobacco Use Comment F acility March 16, 2024 09:30 AM [place]-TOBACCO QUIT 1 TO < 5 YRS [facility] March 16, 2023 01:00 PM [place]-TOBACCO FORMER USER [facility] March 16, 2023 01:00 PM [place]-TOBACCO QUIT 1 TO < 5 YRS [facility] Aug 26, 2021 02:00 PM VA-TOBACCO FORMER USER [facility] Aug 26, 2021 02:00 PM [place]-TOBACCO QUIT 1 TO < [address] [facility] Radiology Reports: +/- 30 days of the encounter Radiology Reports For cases when an order for radiology services may have been completed prior to the date of the Encounter, the report list includes the Radiology Reports that were completed up to 30 days before dateof the Encounter. For cases when an order for radiology services may have been completed after the date of the Encounter, the report list also includes the Radiology Reports that were completed up to30 days after date of the Encounter. The data comes from all [place] treatment facilities. Date/Time Radiology Report Provider Source Feb 14, 2025 08:42 AM US BREAST LIMITED, UNILATERAL: SCOTTFEBRUARY MELISSA [id number] -1995 F Exm Date: FEB 14, 2025@08:42 Req Phys: TORI COHEN Loc: [facility] PACT 6 NEW PATIENT ( Img Loc: -[facility] Service: Unknown Screen: Patient answered no [facility], [address] [place] [address] (Case [id number] COMPLETE) US BREAST LIMITED, UNILATERAL (US Detailed) CPT:49269 Proc Modifiers : LEFT Reason for Study: left breast ovoid mass-- US done nov 2023. Clinical History: left breast ovoid mass,overdue for repeat US due to failed mandated scheduling. Report Status: Verified Date Reported: FEB 14, 2025 Date Verified: FEB 14, 2025 Video Game Maker E-Sig:/ES/REVA BARTH Report: Case [id number]. US BREAST LIMITED, UNILATERAL HISTORY: Ultrasound follow-up of oval left breast mass 5:30 position 2 cm from the nipple. COMPARISON: Left breast ultrasound 11/11/2023, 05/08/2023 FINDINGS:A limited focused left breast ultrasound was performed at the 5:30 position 2 cm from the nipple. There is an ovoid parallel well-circumscribed smooth margined mildly hypoechoic breast mass at the 5:30 position of the left breast 2 cm from the nipple measuring 7 x 8 x 2 mm, with no internal vascularity and through transmission of sound, appearing without significant change compared to the 2 prior ultrasounds and most consistent with a benign finding. Impression: Stable benign-appearing 7 x 8 x 2 mm ovoid parallel well-circumscribed smooth margined mildly hypoechoic breast mass at the 5:30 position of the left breast 2 cm from the nipple with no internal vascularity and through transmission of sound. ASSESSMENT: BI-RADS Category 2: Benign finding RECOMMENDATION: No additional ultrasound follow-up imaging is deemed necessary. Primary Interpreting Staff: REVA BARTH, RADIOLOGIST (Video Game Maker) /REVA SEVILLA [facility] Encounter Notes: All associated encounter notes This section contains the clinical notes associated to the Encounter. Date/Time Encounter Note(s) Provider Source Feb 01, 2025 01:21 PM PHYSICIAN LETTERS: LOCAL TITLE: TEST RESULT GENERAL LETTER STL STANDARD TITLE: PHYSICIAN LETTERS DATE OF NOTE: FEB 01, 2025@13:21 ENTRY DATE: FEB 01, 2025@13:21:44 AUTHOR: TORI COHEN COSIGNER: URGENCY: STATUS: COMPLETED [facility] [address] [place] [address] FEB 01, 2025 FANI EWING [address] [place] [id number] Dear Fani Ewing, I would like to update you on your recent test results. LIPID PROFILE - High cholesterol and triglycerides (lipids) are risk factors for heart disease. Your cholesterol should fall between 140 and 200, and your triglycerides levels should be less than or equal to 150. HDL is the good cholesterol and should ideally be greater than 40. LDL is the bad cholesterol and optimal levels should be less than 100 (near optimal is between 100 and 129). TRIGLYCERIDE 35 mg/dL 01/18/2025 09:17 CHOLESTEROL 124 mg/dL 01/18/2025 09:17 HDL(New) 46 mg/dL 01/18/2025 09:17 CALCULATED LDL 71 mg/dL 01/18/2025 09:17 No DIRECT LDL EO data found These readings are within normal limits. HEMOGLOBIN A1C - Gives us information about your diabetes (sugar or glucose) control over the past 3 months. Your target is to keep your A1C below 6 %. HGA1C 5.4 % 01/18/2025 09:17 These readings are within normal limits. CBC - A complete blood count (CBC) gives important information about the kinds and numbers of cells in the blood, especially red blood cells, white blood cells, and platelets. HGB 12.1 g/dL 01/18/2025 09:17 HEMATOCRIT 36.1 % (01/18/25 09:17) PLT 275 10*3/uL 01/18/2025 09:17 WHITE BLOOD COUNT 4.5 10*3/uL (01/18/25 09:17) These readings are within normal limits. CHEM 7 - This is important information about the current status of your kidneys, liver, and electrolyte and acid/base balance as well as of your blood sugar and blood proteins. SODIUM 139 mEq/L 01/18/2025 09:17 POTASSIUM 4.4 mEq/L 01/18/2025 09:17 CHLORIDE 106 mEq/L 01/18/2025 09:17 UREA NITROGEN 16.6 mg/dL 01/18/2025 09:17 CREATININE 0.72 mg/dL 01/18/2025 09:17 CALCIUM 8.9 mg/dL 01/18/2025 09:17 CARBON DIOXIDE 21 L mEq/L 01/18/2025 09:17 GLUCOSE 83 mg/dL 01/18/2025 09:17 EGFR (CKD-EPI 2020) 115.3 01/18/2025 09:17 These readings are within normal limits. LIVER FUNCTION PANEL - These are tests for liver function: PROTEIN 7.2 g/dL 01/18/2025 09:17 ALBUMIN 4.2 g/dL 01/18/2025 09:17 TOTAL BILIRUBIN 0.5 mg/dL 01/18/2025 09:17 ALKALINE PHOSPHATASE 57 U/L 01/18/2025 09:17 AST/SGOT 55 H U/L 01/18/2025 09:17 ALT/SGPT 19 U/L 01/18/2025 09:17 These results are abnormal. slightly elevated liver enzyme AST is not clinically significant at this time. we will monitor. TSH - Thyroid-stimulating hormone (also known as TSH or thyrotropin) is a peptide hormone synthesized and secreted by thyrotrope cells in the anterior pituitary gland, which regulates the endocrine function of the thyroid gland. TSH TSH 1.373 uIU/mL 01/18/2025 09:17 These readings are within normal limits. VITAMIN D - Helps promote the proper utilization of calcium and phosphorus, thereby producing proper bone maintenance. VITAMIN D, 25-HYDROXY 41.2 ng/mL 01/18/2025 09:17 These readings are within normal limits. PLAN Please continue your treatment as we discussed during your visit. If you have any questions please call your counter caser. I look forward to seeing you at your next clinic appointment. Thank you for choosing the [facility] for your healthcare. FUTURE APPOINTMENTS: 02/14/2025 09:00 [facility]ULTR[facility] (1) 03/20/2025 09:00 [facility]VVC NEURO FROY 01/18/2026 15:30 [facility]-ST CLR PACT 6 PCP Sincerely, TORI EWING,FEBRUARY TORI PRYOR [facility] Jan 18, 2025 08:59 AM NURSING NOTE: LOCAL TITLE: V15 PACT FACE TO FACE NOTE STL STANDARD TITLE: NURSING NOTE DATE OF NOTE: JAN 18, 2025@08:59 ENTRY DATE: JAN 18, 2025@08:59:57 AUTHOR: REESE SHEPARD EXP COSIGNER: URGENCY: STATUS: COMPLETED Provider Visit: Patient Identifiers : Full Name Date of Reason for visit: Established Follow-Up Mode of Arrival: Ambulatory Allergy Review: Patient has answered NKA Allergy list reviewed and remains current. Recent Vital Signs: Temperature: 97.8 F [36.6 C] (01/18/2025 08:44) Pulse: 72 (01/18/2025 08:44) Respiration: 18 (01/18/2025 08:44) B/P: 120/72 (01/18/2025 08:44) Pain: 5 (01/18/2025 08:44) Wt: 148 lb [67.13 kg] (01/18/2025 08:44) Ht: 63 in [160.0 cm] (01/18/2025 08:44) BMI: 26.3 POX: 98% (01/18/2025 08:44) PERSONAL HEALTH INVENTORY Notes: No data available for PHI note titles PERSONAL HEALTH INVENTORY - MAP: No data available for PHI MAP What matters most to you in your life right now? - [place]'s Response: my kids Would you like to discuss any personal problem, family problem, alcohol use, drug use, or a mental or emotional illness? No My [facility] ([facility]), please select appointment type: Face to face: Yes-Do you have an upgraded (Premium) account which gives you the added benefit of Secure Messaging with your Primary Care Provider and refilling your prescriptions online? Contact provided Primary Care phone number and encouraged to call if any questions or concerns. Review that after hours nurse line [phone] and emergency room are available 01/06 for patient use. Contact verbalized good understanding. Suicide Screen - V: C-SSRS Screening [place] Suicide Severity Rating Scale (C-SSRS) screener 1. Over the past month, have you wished you were or wished you could go to sleep and not wake up? No 2. Over the past month, have you had any actual thoughts of killing yourself? No 3. Over the past month, have you been thinking about how you might do this? Response not required due to responses to other questions. 4. Over the past month, have you had these thoughts and had some intention of acting on them? Response not required due to responses to other questions. 5. Over the past month, have you started to work out or worked out the details of how to kill yourself? Response not required due to responses to other questions. 6. If yes, at any time in the past month did you intend to carry out this plan? Response not required due to responses to other questions. 7. In your lifetime, have you ever done anything, started to do anything, or prepared to do anything to end your life (for example, collected pills, obtained a gun, gave away valuables, went to the roof but didn't jump)? No 8. If YES, was this within the past 3 months? Response not required due to responses to other questions. Depression Screening - V: Perform PHQ-2 A PHQ-2 screen was performed. The score was 0 which is a negative screen for depression. Over the past two weeks, how often have you been bothered by the following problems? 1. Little interest or pleasure in doing things Not at all 2. Feeling down, depressed, or hopeless Not at all Homelessness/Food Insecurity Screen - DI,L,N,P,PH,PS,S,U: In the past 2 months, have you been living in stable housing that you own, rent, or stay in as part of a household? Yes - Living in stable housing. Are you worried or concerned that in the next 2 months you may NOT have stable housing that you own, rent, or stay in as part of a household? No - Not worried about housing near future The [place] reports the following: Within the past 12 months, you worried whether your food would run out before you got money to buy more. Never true Within the past 12 months, the food you bought just didn't last and you didn't have money to get more. Never true Influenza Immunization - L,N,P,PH,U: Deferral / Refusal The patient declines to receive the recommended dose of seasonal influenza vaccine. Immunization: INFLUENZA, UNSPECIFIED FORMULATION Refusal Reason: PATIENT DECISION Patient refuses all immunization(s) in the FLU group Date Documented: 01/18/25 09:09 andrew/ REESE SHEPARD LPN LICENSED PRACTICAL NURSE Signed: 01/18/2025 09:10 REESE SHEPARD [facility] Jan 18, 2025 08:50 AM PRIMARY CARE NOTE: LOCAL TITLE: PRIMARY CARE PROVIDER ESTABLISHED VISIT [facility] STANDARD TITLE: PRIMARY CARE NOTE DATE OF NOTE: JAN 18, 2025@08:50 ENTRY DATE: JAN 18, 2025@08:50:15 AUTHOR: TORI COHEN COSIGNER: URGENCY: STATUS: COMPLETED ESTABLISHED PATIENT [id number]: REASON FOR VISIT/CHIEF COMPLAINT: routine fu. bilateral hip pain , LBP , anxiety, migraine headaches HPI: She reports stable mood . denies SI/HI. Migraines controlled on current meds, uses cephaly device. LBP and hip pain stable. does stretching and pilates. Takes NSAID very sparingly. She had abnormal mammo nov 2023 and missed scheduling for short f.u repeat surveillance, she denies breast pain, nipple discharge, dimpling. NON [facility] Provider- [facility] SOURCE(S) OF HISTORY: Patient PAST MEDICAL HISTORY: 1) Low Back Pain (SCT 347864953) 2) Tinnitus (SCT 20161787) 3) Migraine with Aura (SCT 4013020) 4) Adjustment disorder with mixed anxiety and depressed mood 5) Hip pain 6) Anxiety (SCT 51660370) 7) Pain of breast FAMILY HISTORY: No new updates. SOCIAL HISTORY: NICOTINE: Nicotine User: No ILLICIT DRUGS: No ETOH: denies ALLERGIES: Patient has answered NKA ALLERGY REVIEW: Allergy list reviewed and remains current. MEDICATION RECONCILIATION: I have reviewed the patient's medication list with the patient and/or his/her care-uptwist spinner. Handwritten corrections, additions and/or deletions were made to the list. Corrected Outpatient Medication List was provided to the patient/caregiver. Active Outpatient Medications (including Supplies): Active Outpatient Medications Status 1) BUSPIRONE HCL 15MG TAB TAKE ONE-HALF TABLET BY MOUTH THREE ACTIVE TIMES A DAY NEEDED DO NOT TAKE WITH GRAPEFRUIT JUICE. Indication: FOR ANXIETY 2) MAGNESIUM OXIDE 400MG TAB TAKE ONE TABLET BY MOUTH ONCE A ACTIVE DAY Indication: FOR MIGRAINE PREVENTION 3) TRAZODONE HCL 50MG TAB TAKE ONE-HALF TABLET BY MOUTH AT ACTIVE BEDTIME FOR Indication: INSOMNIA 4) VENLAFAXINE HCL 37.5MG 24HR SA CAP TAKE ONE CAPSULE BY MOUTH ACTIVE ONCE A DAY FOR 7 DAYS, THEN TAKE TWO CAPSULES ONCE A DAY WITH FOOD. DO NOT ABRUPTLY DISCONTINUE MEDICATION. Indication: FOR DEPRESSION 5) ZOLMITRIPTAN 2.5MG TAB PKG 6 TAKE TWO TABLETS BY MOUTH ACTIVE ONE-TIME TAKE AT ONSET OF HEADACHE; MAY REPEAT IN 2 HRS IF NEEDED (DO NOT EXCEED 10MG IN 24 HOUR PERIOD) Indication: FOR MIGRAINE HEADACHE REVIEW OF SYSTEMS: General: Normal No Fevers, Chills, Weight Loss, Weight Gain, Recent Illness. Ears, Nose, Mouth, Throat: Normal No new loss of hearing or tinnitus, no Dental issue, Difficulty swallowing, Vertigo. Eye: Normal No Trauma, Cataracts, Glaucoma, Blurred vision Cardiovascular: Normal No Chest pain, Dizziness, Palpitations. Respiratory: Normal No Cough, SOB, Hemoptysis, Epistaxis, Influenza symptoms, +PDD. PHYSICAL EXAMINATION: General appearance: VITALS (most recent, as listed in the electronic record): B/P: 120/72 (01/18/2025 08:44) Pulse: 72 (01/18/2025 08:44) Temperature: 97.8 F [36.6 C] (01/18/2025 08:44) Weight: 148 lb [67.13 kg] (01/18/2025 08:44) Height: 63 in [160.0 cm] (01/18/2025 08:44) BMI: 26.3 Pain: 5 (01/18/2025 08:44) (0-10 scale) General: pleasant, cooperative, well-developed, well-nourished, appropriately dressed and groomed [place]; in no acute distress. Ears, Nose, Mouth, Throat:TM pearly curran, intact. Throat clear with no exudate. No trismus. Nose patent Eye:PERRL Cardiovascular:RRR, No m/r/g or clicks. Respiratory:Clear to auscultation bilaterally. No accessory muscle use. Respirations even and non-labored ABD/GI:soft, non-tender. BS + x 4. /STUDENT DEVELOPMENT DEAN: Deferred Lymph: No lymphadenopathy Extremities:No pedal edema. Psych:Affect appropriate. Neuro: Oriented x3. Gait steady with normal stride. Hematology: Color good. No pallor. No ecchymosis or petechiae. Skin:No visualized abnormalities. DATA REVIEW: SLT - Lab Tests Selected Collection DT Specimen Test Name Result Units Ref Range 03/16/2024 09:50 BLOOD HGA1C 5.6 % 4.0 - 6.0 03/16/2023 13:49 BLOOD HGA1C 5.4 % 4.0 - 6.0 03/13/2022 14:01 BLOOD HGA1C 4.9 % 4.0 - 6.0 = TRIGLYCERIDE 53 mg/dL 03/16/2024 09:50 CHOLESTEROL 145 mg/dL 03/16/2024 09:50 HDL(New) 51 mg/dL 03/16/2024 09:50 CALCULATED LDL 83 mg/dL 03/16/2024 09:50 = SODIUM 138 mEq/L 03/16/2024 09:50 POTASSIUM 4.2 mEq/L 03/16/2024 09:50 CHLORIDE 107 mEq/L 03/16/2024 09:50 UREA NITROGEN 11.3 mg/dL 03/16/2024 09:50 CREATININE 0.79 mg/dL 03/16/2024 09:50 CALCIUM 9.4 mg/dL 03/16/2024 09:50 PROTEIN 7.6 g/dL 03/16/2024 09:50 ALBUMIN 4.5 g/dL 03/16/2024 09:50 ALKALINE PHOSPHATASE 59 U/L 03/16/2024 09:50 ALT/SGPT 17 U/L 03/16/2024 09:50 AST/SGOT 18 U/L 03/16/2024 09:50 TOTAL BILIRUBIN 0.7 mg/dL 03/16/2024 09:50 CARBON DIOXIDE 21 L mEq/L 03/16/2024 09:50 GLUCOSE 71 L mg/dL 03/16/2024 09:50 EGFR (CKD-EPI 2020) 103.8 03/16/2024 09:50 = WBC 6.2 10*3/uL 03/16/2024 09:50 RBC 4.69 10*6/uL 03/16/2024 09:50 HGB 14.0 g/dL 03/16/2024 09:50 HCT 42.3 % 03/16/2024 09:50 MCV 90.2 fL 03/16/2024 09:50 MCH 29.9 pg 03/16/2024 09:50 MCHC 33.1 g/dL 03/16/2024 09:50 RDW 13.0 % 03/16/2024 09:50 PLT 313 10*3/uL 03/16/2024 09:50 MPV 10.8 fL 03/16/2024 09:50 NEUTROPHILS, AUTO % 54 % 03/16/2024 09:50 LYMPHOCYTES, AUTO % 35 % 03/16/2024 09:50 MONOCYTES, AUTO % 8 % 03/16/2024 09:50 EOSINOPHILS, AUTO % 2 % 03/16/2024 09:50 BASOPHILS, AUTO % 1 % 03/16/2024 09:50 NEUTROPHILS, ABSOLUTE 3.34 10*3/uL 03/16/2024 09:50 LYMPHOCYTES, ABSOLUTE 2.19 10*3/uL 03/16/2024 09:50 MONOCYTES, ABSOLUTE 0.51 10*3/uL 03/16/2024 09:50 EOSINOPHILS, ABSOLUTE 0.11 10*3/uL 03/16/2024 09:50 BASOPHILS, ABSOLUTE 0.04 10*3/uL 03/16/2024 09:50 = No PSA (LAST 10 5Y) EO data found = TSH 1.308 uIU/mL 03/16/2024 09:50 = URIC ACID: No data available for: URIC ACID = B12 452 pg/mL 03/16/2024 09:50 = VITAMIN D, 25-HYDROXY 51.3 ng/mL 03/16/2024 09:50 = INR: No INR EO data found = No URINALYSIS EO data found = Urine Microalbumin: No data available = No METHADONE PANEL EO data found = Dilantin: ____ = Digoxin: No data available for: DIGOXIN = Chest x-ray: No data available for: CHEST 2 VIEWS PA&LAT = EKG: No data available for: EKG CONSULT STL EKG CONSULTS PB EKG RESULTS MA Result: Acceptable Follow-up Action: Data results reviewed with patient and/or caregiver. A/P #Insomnia -reviewed and emphasized sleep hygeine -discussed melatonin, declined rx. She may get OTC. #Generalized aching to Upper body #bilat shoulder pain, neck pain, upper back pain, LBP -offered PT and chiro, declined -cont APAP alternate with NSAID PRN #migraines -cont APAP OTC PRN -cont cephaly, neruro recs #Bilat hip pain- hx labral tear -quiescent -cont APAP OTC PRN -can cont NSAID PRN- do not recommend daily use, GI precautions reviewed #Anxiety -stable; denies SI/HI. -cont current treatment:SSRi may also help with chronic pain -cont following with and psychiatry #mastodynia-quiescent #L breast nodule - significant fam hx of breast ca. diagnostic mammo requested. -Breast US 11/11/23 Impression: Stable probably benign oval left breast nodule at the 5:30 position, 2 cm from the nipple. BI-RADS CATEGORY: BI-RADS Category 3: Probably benign finding, short interval follow up suggested. RECOMMENDATION: Sonographic surveillance reevaluation in September 2024. re-ordered as pt failed mandated scheduling #hx of abnormality on uterus -cont fu with non va STUDENT DEVELOPMENT DEAN RTC annual/sooner prn SUMMARY STATEMENT: Plan of care has been discussed with including expected therapeutic benefits and potential side effects of prescribed medication and treatments. verbalizes understanding and is in agreement with the plan of care. Patient was instructed to keep all scheduled appointments and contact blood bank technician for any additional problems. PREVENTION & SCREENING: ALCOHOL: Clinical Reminder not due now or within a month BLOOD PRESSURE: Clinical Reminder not due now or within a month HEMOGLOBIN A1C: Clinical Reminder not due now or within a month /es/ TORI COHEN MD Signed: 01/26/2025 08:33 TORI COHEN [facility]
--- OUTSIDE RECORDS SUMMARY | 2025-04-20 00:26 | XMS_ITS | Clinical Summary ---
Author Organization [facility] [address] Address [address] [place] [id number] Care Team Providers Care Air Crew Officer Name Role Phone Tavo Genao MD Primary Care Provider [phone] Allergies Active Allergy Reactions Criticality Noted Date Comments Topiramate Other (See comments) Low 02/17/2020 groggy Medications meloxicam (MOBIC) 7.5 mg tablet Take 1 tablet (7.5 mg total) by mouth daily Active FLUoxetine 10 mg capsule 3 tablet/capsu le (30 mg total) 09/09/2023 Active traZODone (DESYREL) 50 mg tablet 0.5 tablets (25 mg total) 04/29/2023 Active cyclobenzaprine (FLEXERIL) 5 mg tablet Take 1 tablet (5 mg total) by mouth 3 (three) times a day as needed for muscle spasms 30 tablet 11/24/2023 Active Active Problems Problem Noted Date Diagnosed Date Mass of left breast 09/11/2022 Dry skin dermatitis 06/12/2022 Migraine without aura and wi thout status migrainosus, not intractable 01/22/2022 VICKIE (generalized anxiety disorder) 01/22/2022 Panic attacks 01/22/2022 Immunizations Immunization Administration Dates Next Due DTP / HiB 09/25/1995, 5,1994,09/09 DTaP 01/08/1999 DTaP / IPV 01/08/1999, 5,1994,09/09 DTaP, Unspecified 08/29/2015, 9,09/25/1995,02/27,1994,1994 HPV, Quadrivalent 12/22/2007,08/19/2007,06/02/20 07 HPV, Unspecified 12/22/2007,08/19/2007, 7 Hep A / Hep B 08/05/2013,06/30/2013 Hep B, Adolescent or Pediatric 07/02/1995,1993,1994 Hep B, Unspecified 07/02/1995,1994, 994 Hib (PRP-OMP) 09/25/1995, 5,1994,09/09 Influenza, Quadrivalent, Spl it, Preservative Free, Intramuscular 09/17/2021,08/09/2019,10/15/2018 Influenza, Unspecified 11/24/2023,2020,08/09/2019,07/26,10/15/2018 MMR 07/16/2017,01/08/1999,09/25/1995 MMRV 08/05/2013,01/08/1999,09/25/1995 Meningococcal ACWY, Unspecified 06/02/2007 Meningococcal B, OMV (Bexsero) 06/30/2013 Meningococcal C Conjugate 06/02/2007 OPV 01/08/1999, 5,1994,09/09 OPV, Unspecified 01/08/1999, 5,1994,09/09 Tdap 08/25/2019,08/29/2015,07/05/2008 Typhoid, Unspecified 08/02/2014 Varicella 07/10/2016 Surgical History Surgery Date Site/Laterality Comments BREAST BIOPSY 11/09/2011 - 11/08/2012 Right TONSILLECTOMY 11/09/2016 - 11/08/2017 Medical History Medical History Date Comments History of headache Arthritis Family History Medical History Relation Name Comments Lung cancer Maternal Grandfather Pancreatic cancer Maternal Grandfather Lung cancer Maternal Grandmother Breast cancer Mother Lung cancer Paternal Grandfather Relation Name Status Comments Maternal Grandfather Maternal Grandmother Mother Paternal Grandfather Social History Tobacco Use Types Packs/Day Years Used Date Smoking Tobacco: Former Cigarettes Q uit: 2019 Smokeless Tobacco: Never Tobacco Cessation:Counseling Given: Not Answered AUDIT-C Answer Date Recorded Q1: How often do you have a drink containing alc ohol? Monthly or less 03/13/2022 Average Number of Drinks Not on file 022 Frequency of Binge Drinking Not on file 03/2022 PHQ-2 Answer Date Recorded PHQ-2 Total Score (If total score is 3 or more points, staff should administer the PHQ-9) 0 11/24/2023 Personal Safety Answer Date Recorded Getting School Help Needed Not on file 11/12 Comments No Sex and Gender Information Value Date Recorded Sex Assigned at Not on file Legal Sex Female 2:51 PM CDT Gender Identity Not on file Sexual Orientation Not on file Obstetrics History Last Filed Vital Signs Vital Sign Reading Time Taken Comments Blood Pressure 108/68 11/24/2023 3:33 PM CRISIS COUNSELOR Pulse 68 11/24/2023 3:33 PM CRISIS COUNSELOR Temperature 36.4 C (97.5 F) 11/24/2023 3:33 PM CRISIS COUNSELOR Respiratory Rate 18 11/24/2023 3:33 PM CRISIS COUNSELOR Oxygen Saturation 98% 11/24/2023 3:33 PM CRISIS COUNSELOR Inhaled Oxygen Concentration - - Weight 73.6 kg (162 lb 3.2 oz) 11/24/2023 3:33 P M CRISIS COUNSELOR Height 160 cm (5' 2.99) 09/11/2022 9:03 AM CDT Body Mass Index 28.74 09/11/2022 9:03 AM CDT Plan of Treatment Health Maintenance Due Date Last Done Comments Cervical Cancer Screening 1994 Hepatitis C Screening 1994 Regular Well Visit/Exam 18-64 2012 Covid-19 Vaccine ( season) 2024 08/03/2021, 06/15/2021 Depression Screening 11/24/2024 11/24/2023, 11/24/2023, 06/12/2022, Additional history exists Influenza Vaccine (Season Ended) 2025 11/24/2023, 09/17/2021, 08/28/2021, Additional history exists DTaP/Tdap/Td Vaccine (11 - Td or Tdap) 08/25/2029 08/25/2019, 08/29/2015, 08/29/2015, Additional history exists HPV Vaccines Completed 12/22/2007, 12/10, 08/19/2007, Additional history exists Hepatitis B Screening Completed 08/02/2014 , 08/05/2013, 06/30/2013, Additional history exists Varicella Vaccines Completed 07/10/2016, 0 08/05/2013, 01/08/1999, Additional history exists Pneumococcal vaccine <65 Aged Out No longer eligible based on patient's age to complete this topic Insurance IDMD IDMD BLUE ACCESS [place] [facility] Care Teams Air Crew Officer Relationship Specialty Start Date End Date Tavo Genao MD PCP - General Family Medicine 08/27/21
--- OUTSIDE RECORDS SUMMARY | 2025-04-20 00:26 | XMS_ITS | Referral Summary ---
Author Organization [facility] [address] Address [address] [place] [phone] Care Team Providers Care Coat Feller Name Role Phone Tavo Genao MD Primary Care Provider [phone] Allergies Active Allergy Reactions Criticality Noted Date [...] Tdap 08/25/2019,08/29/2015,07/05/2008 Typhoid, Unspecified 08/02/2014 Varicella 07/10/2016 Social History Tobacco Use Types Packs/Day Years [...] on file Sexual Orientation Not on file Last Filed Vital Signs Vital Sign Reading Time Taken Comments Blood Pressure 108/68 11/24/2023 3:33 PM DOOR TECHNICIAN Pulse 68 11/24/2023 3:33 PM DOOR TECHNICIAN Temperature 36.4 C (97.5 F) 11/24/2023 3:33 PM DOOR TECHNICIAN Respiratory Rate 18 11/24/2023 3:33 PM DOOR TECHNICIAN Oxygen Saturation 98% 11/24/2023 3:33 PM DOOR TECHNICIAN Inhaled Oxygen Concentration - - Weight 73.6 kg (162 lb 3.2 oz) 11/24/2023 3:33 P M DOOR TECHNICIAN Height 160 cm (5' 2.99) 09/11/2022 9:03 AM CDT Body Mass Index 28.74 09/11/2022 9:03 AM CDT Plan of Treatment Not on file Insurance IDPA IDPA [place] ACCESS [place] Care Teams Coat Feller Relationship Specialty Start Date End Date Tavo Genao MD PCP - General Family Medicine 08/27/21
--- OUTSIDE RECORDS SUMMARY | 2025-04-20 00:27 | XMS_ITS | Clinical Summary ---
Author Organization [facility] Address [address] [place] [address] Care Team Providers Care Mortgage Lender Name Role Phone Cece Tillman Primary Care Provider [phone] Source Comments [facility],non-owned Affiliates and Associated Physician Practices is amultiple site organization consisting of ambulatory clinics and hospital sitesin [place], [place], [place] and [place]. This disclosure is being madepursuant to the Care Everywhere program and may not contain all information available regarding this patient. Last updated 18.[facility] Allergies No known active allergies Medications * Be aware that medications may not be up to date on this document. Alwaysverify current medications with the patient. betamethasone dipropionate 0.05 % lotionIndications :Other seborrheic dermatitis,Other psoriasis Apply to itchy areas of scalp twice daily. 30 days supply. 60 mL 5 9 Active selenium sulfide (SELSUN) 2.5 % lotionIndications :Other seborrheic dermatitis,Other psoriasis Wash into scalp and allow to sit for 3-5 minutes. 30 DS 120 mL 11 9 Active topiramate (TOPAMAX) 25 MG tablet Take 25 mg by mouth once daily 9 Active amitriptyline (ELAVIL) 10 MG tablet Take 20 mg by mouth once daily 9 Active sertraline (ZOLOFT) 100 MG tablet Take 100 mg by mouth once daily 9 Active mupirocin (BACTROBAN) 2 % ointmentIndicatio ns:Rash and other nonspecific skin eruption Apply to skin folds as directed BID x 5 days per month. 30DS 30 g 2 9 Active Active Problems Problem Noted Date Diagnosed Date Rash and other nonspecific skin eruption 019 History of staph infection 10/25/2019 Sebopsoriasis 10/25/2019 Cellulitis of right upper extremity 08/02/2019 Other seborrheic dermatitis 03/31/2019 Immunizations Immunization Administration Dates Next Due INFLUENZA VACCINE 07/26/2019 Family History Medical History Relation Name Comments Asthma Neg Hx CVA Neg Hx Cancer - Breast Neg Hx Cancer - Other Neg Hx Cancer - Skin, Melanoma Neg Hx Cancer - Skin, Non Melanoma Neg Hx Eczema Neg Hx Hemophilia Neg Hx Psoriasis Neg Hx Social History Tobacco Use Types Packs/Day Years Used Date Smoking Tobacco: Former Cigarettes Q uit: 2014 Smokeless Tobacco: Never Comments Unknown Sex and Gender Information Value Date Recorded Sex Assigned at Not on file Legal Sex Female 10:32 AM FENCE MAKER Gender Identity Not on file Sexual Orientation Not on file Plan of Treatment Health Maintenance Due Date Last Done Comments HIV SCREENING 2009 HEPATITIS C SCREENING 06/15/2012 DTAP/TDAP/TD VACCINES (1 - Tdap) 2013 HEPATITIS B VACCINE (1 of 3 - 19+ 3-dose series) 2013 COVID-19 VACCINE (1 - 2023- season) 2024 DEPRESSION SCREENING 11/09/2024 INFLUENZA VACCINE (Season Ended) 2025 08/09/2019, 07/26/2019, 09/14/2017, Additional history exists ZOSTER VACCINE (1 of 2) 2044 HIB VACCINE Aged Out No longer eligi ble based on patient's age to complete this topic HPV VACCINE Aged Out No longer eligi ble based on patient's age to complete this topic MENINGOCOCCAL (Group B) VACCINE SHARED DECISION-MAKING Aged Out No longer eligible based on patient's age to complete this topic MENINGOCOCCAL GROUPS A/C/Y/W VACCINE Aged Out No longer eligible based on patient's age to complete this topic PNEUMOCOCCAL VACCINE Aged Out No long er eligible based on patient's age to complete this topic Insurance ANTH Care Teams Mortgage Lender Relationship Specialty Start Date End Date Cece Tillman PA [address] [place] [address] PCP - General Physician Automobile Service Station Manager 10/27/18
--- OUTSIDE RECORDS SUMMARY | 2025-04-20 00:27 | XMS_ITS | Encounter Summary ---
Author Name [facility] [place] [facility] [place] Address [address] [place] [address] Care Team Providers Care Md Do Resident Urgent Care Name Role Phone TORI COHEN Primary Care [...] FEP BASIC FAM Apr 10, 2024 [id number] 20 [phone] JOSE G CHAVEZ PATIENT [employer] [employer] [place] FEP PREFERRED PROVIDER ORGANIZAT ION (PPO) FEP BASIC FAM Apr 10, 2024 [id number] 20 [phone] JOSE G CHAVEZ RIL PATIENT [employer] [place] FEP PREFERRED PROVIDER ORGANIZAT ION (PPO) FEP BASIC FAM Apr 10, 2024 [id number] 20 [phone] JOSE G CHAVEZ PATIENT [employer] [place] FEP PREFERRED PROVIDER ORGANIZAT ION (PPO) FEP BASIC FAM Apr 10, 2024 [id number] 20 [phone] JOSE G CHAVEZ PATIENT [place] FEP ([id number]) PRESCRIPT ION FEPRX Apr 10, 2024 [id number] 20 [phone] JOSE G CHAVEZ PATIENT [facility] (R) MEDICAID MEDIC AID Sep 09, 2018 [id number] [phone] Juan SANDOVAL PRIL PATIENT Selected Encounter This section includes the information on record at [place] for the Encounter. Date/Time Encounter Type Encounter Description Reason Provider Source Aug 10, 2024 09:00 AM OFFICE O/P EST MOD 30 MIN NEUROLOGY ICD-10-CM G43.109 Migraine with aura, not intractable, w/o status migrainosus GEOVANI MCDUFFIE IHMeliza Encounter Template Text not used by [place] Assessments - Encounter Diagnoses This section includes the primary and secondary diagnoses documented for the Encounter. Date/Time Primary/Secondary Diagnosis Diagnosis Name Provider Source Aug 10, 2024 04:16 PM PRIMARY Migraine with aura, not intractable, w/o status migrainosus GEOVANI MCDUFFIE [facility] Plan of Treatment: Future Appointments (+ 6 months) and Future Tests (+/- 45 days) The Plan of Treatment section includes future care activities for the patient from all [place] treatmentfacilities. This section includes future appointments and future orders which are active, pending or scheduled. Future Appointments This section includes appointments that were scheduled to occur 6 months from the date of the Encounter, up to a maximum of 20 appointments. The data comes from all [place] treatment facilities. Appointment Date/Time Appointment Type Appointme nt Facility Name Oct 07, 2024 04:00 PM AMBULATORY - NONE [facility] Dec 07, 2024 09:00 AM AMBULATORY - NEUROLOGY [facility] Jan 18, 2025 08:30 AM AMBULATORY - MEDICINE [facility] Encounter Notes: All associated encounter notes This section contains the clinical notes associated to the Encounter. Date/Time Encounter Note(s) Provider Source Aug 10, 2024 08:57 AM NEUROLOGY OUTPATIE NT NOTE: LOCAL TITLE: NEUROLOGY OUTPATIENT FOLLOW UP STL STANDARD TITLE: NEUROLOGY OUTPATIENT NOTE DATE OF NOTE: AUG 10, 2024@08:57 ENTRY DATE: AUG 10, 2024@08:57:57 AUTHOR: GEOVANI MCDUFFIE EXP COSIGNER: URGENCY: STATUS: COMPLETED NEUROLOGY OUTPATIENT FOLLOW UP STL Has ADDENDA I saw today in the outpatient neurology clinic Mrs. Sandoval Chief Complaint:follow up migraine, history of chronic daily headache History of Present Illness: Mrs. Sandoval is a 29 yo lady seen in follow up from her last appointment in November 2022. At that time she was doing very well with the use of the Cefaly device. She has stated that for the last several months the number of headaches has increased and she is now having headaches on average of twice a week. The headaches are exacerbated by bending over and other Valsalva maneuvers. As in the past the pain has been triggered by exertion. Over the last few days she has been having a headache on the left side that has been associated with phophenes and photosensitivity. She complains of frequent blurry vision despite of having had her eyes checked and new prescription. She has stated that she has continued using the Cefaly even though she had not have refills on electrodes for a while. She has used ago on both preventative and abortive settings. Past Medical History: 1) Low Back Pain ([facility] [id number]) 2) Tinnitus ([facility] [id number]) 3) Migraine with Aura ([facility] [id number]) 4) Adjustment disorder with mixed anxiety and depressed mood 5) Hip pain 6) Anxiety ([facility] [id number]) 7) Pain of breast Allergies: Patient has answered NKA Medicines: Active Outpatient Medications (including Supplies): Active Outpatient Medications Status 1) BUSPIRONE HCL 15MG TAB TAKE ONE-HALF TABLET BY MOUTH ACTIVE THREE TIMES A DAY NEEDED DO NOT TAKE WITH GRAPEFRUIT JUICE. 2) FLUOXETINE HCL 10MG CAP TAKE THREE CAPSULES BY MOUTH ACTIVE ONCE A DAY 3) TRAZODONE HCL 50MG TAB TAKE ONE-HALF TABLET BY MOUTH ACTIVE AT BEDTIME FOR INSOMNIA Review of Systems: She is not on control. She does follow the cycle method and use of condoms. She denies feels stable in terms of the mood disorder Physical Examination: BP 110/74 (03/16/2024 09:14), HR 84 (03/16/2024 09:14) Today 110/73 69 Neurological Examination: The patient is alert and fully oriented, cooperative and follows commands. Speech and language are normal. On cranial nerves there are normal reactive pupils, full EOM with no nystagmus and full visual melton to confrontation. The face is symmetric with normal V-1 to V-3 sensation. The palate is in midline and elevates symmetrically. Tongue is in midline. Shoulders elevate symmetrically. SCM had full strength. On motor testing, there is full strength throughout with normal muscle bulk and tone. Sensation is normal in all extremities to LT, PP, vibration and position sense. DTR's are symmetric and normal. Toes are downgoing. On coordination finger nose finger and heel knee keita are normal. There is no tremor. Gait is normal with negative Romberg and Pull tests. Assessment and Plan: Impression: Mrs. Chavez has a history of chornic daily headache and improved with use of the Cefaly to intermittent migraines. More recently the migraines have increased. I suspect poor compliance with use of Cefaly. She needs better abortive treatment and therefore will try zolmitriptan. Considering the worsenign of the pain with valsalva maneuvers even though is not unusual for headache to the exacerbated by activity will order a brain MRI as she has not had any imaging since she was in the service. Plan and recommendations: Cefaly electrodes Brain MRI Trial of Zolmitriptan 5 mg Trial of Magnesium 400mg to be use in addition to the Cefaly Follow up plan: 4 months /regis/ GEOVANI MCDUFFIE MD NEUROLOGY STAFF PHYSICIAN Signed: 08/11/2024 16:24 10/14/2024 ADDENDUM STATUS: COMPLETED Report of brain MRI on [facility] Impression: 1. Exam limited by susceptibility artifact, however no obvious mass or acute abnormality. 2. Mild cerebellar tonsillar ectopia (3 mm) No cahnages in plan based on above. /regis/ GEOVANI MCDUFFIE MD NEUROLOGY STAFF PHYSICIAN Signed: 10/14/2024 16:50 GEOVANI MCDUFFIE [facility]
--- OUTSIDE RECORDS SUMMARY | 2025-04-20 00:27 | XMS_ITS ---
Author Name [facility] [place] [facility] [place] Address [address] [place] [address] Care Team Providers Care Bus Greaser Name Role Phone TORI COHEN Primary Care [...] FEP BASIC FAM Apr 10, 2024 [id number] [phone] JOSE G CHAVEZ PATIENT [employer] [employer] [place] FEP PREFERRED PROVIDER ORGANIZAT ION (PPO) FEP BASIC FAM Apr 10, 2024 112 [id number] 20 [phone] JOSE G CHAVEZ RIL PATIENT [employer] [employer] [place] FEP PREFERRED PROVIDER ORGANIZAT ION (PPO) FEP BASIC FAM Apr 10, 2024 112 [id number] 20 [phone] JOSE G CHAVEZ PATIENT [employer] [place] FEP PREFERRED PROVIDER ORGANIZAT ION (PPO) FEP BASIC FAM Apr 10, 2024 112 [id number] 20 [phone] JOSE G CHAVEZ PATIENT [employer] F[facility] ([id number]) PRESCRIPT ION FEPRX Apr 10, 2024 [id number] [phone] JOSE G CHAVEZ PATIENT [facility] ([place]) MEDICAID MEDIC AID Sep 09, 2018 [id number] [phone] Juan SANDOVAL PATIENT Selected Encounter This section includes the information on [place] at [place] for the Encounter. Date/Time Encounter Type Encounter Description Reason Provider Source Dec 07, 2024 09:00 AM OFFICE O/P EST HI 40 MIN NEUROLOGY ICD-10-CM G43.109 Migraine with aura, not intractable, w/o status migrainosus FROYGEOVANI Meliza Encounter Template Text not used by [place] Assessments - Encounter Diagnoses This section includes the primary and secondary diagnoses documented for the Encounter. Date/Time Primary/Secondary Diagnosis Diagnosis Name Provider Source Dec 07, 2024 05:16 PM PRIMARY Migraine with aura, not intractable, w/o status migrainosus FROY,GEOVANI [facility] Dec 07, 2024 05:16 PM SECONDARY Migraine w/o aura, not intractable, w/o status migrainosus FROY,[facility] Plan of Treatment: Future Appointments (+ 6 months) and Future Tests (+/- 45 days) The Plan of Treatment section includes future care activities for the [facility] [place] [facility] This section includes future appointments and future orders which are active, pending or scheduled. Future Appointments This section includes appointments that were scheduled to occur 6 months from the date of the Encounter, up to a maximum of 20 appointments. The data comes from all [place] treatment facilities. Appointment Date/Time Appointment Type Appointme nt Facility Name Jan 18, 2025 08:30 AM AMBULATORY - MEDICINE [facility] Feb 14, 2025 09:00 AM AMBULATORY - MEDICINE [facility] Encounter Notes: All associated encounter notes This section contains the clinical notes associated to the Encounter. Date/Time Encounter Note(s) Provider Source Dec 08, 2024 01:18 PM ADDENDUM: LOCAL TITLE: Addendum STANDARD TITLE: ADDENDUM DATE OF NOTE: DEC 08, 2024@13:18:52 ENTRY DATE: DEC 08, 2024@13:18:53 AUTHOR: BRET JERRY COSIGNER: URGENCY: STATUS: COMPLETED The patient's MH medications including fluoxetine for 30 days supply have not been filled since April 2024. It is unlikely the patient is adherent with the current regimen. The last [facility] note in April 2024 reported she was stable on the current regimen. No documented past trials of venlafaxine found. The patient was not deemed to be at high risk, no past psychiatric hospitalizations or SI noted. If the patient wishes to trial venlafaxine for headache then recommend DC of fluoxetine and change to venlafaxine. Given the refill history and additionally fluoxetines long half life a direct switch would be reasonable. /regis/ Bret Jerry PharmTrevD., [facility] Clinical Pharmacist Practitioner Signed: 12/08/2024 13:25 Receipt Acknowledged By: 12/08/2024 15:50 /es/ GEOVANI MCDUFFIE MD NEUROLOGY STAFF PHYSICIAN 12/08/2024 14:48 /es/ KENDALL RICO Staff Psychiatrist --- Original Document --- 12/07/24 NEUROLOGY OUTPATIENT FOLLOW UP STL: I saw today in the outpatient neurology clinic Mrs. Chavez Chief Complaint:follow up chronic daily headache History of Present Illness: Mrs. Chavez is a 29 yo lady seen in follow up from her last appointment in August. At that time, I recommended to continue using the Cefaly, order a brain MRI considering that she was describing worsening of headache with Valsalva maneuver and offered her a trial of zolmitriptan for abortive migraine in combination with magnesium daily Today November 2018 he stated that she continues doing the same. She did not tolerate the zolmitriptan because of nausea and vagal symptoms. She tried a few times. She has stated that the headaches have increased to 3-4 times a week. She continues using the Cefaly. She has been taking the magnesium 2 with no benefit. Review of records show that she has had trials of topiramate, amitriptyline, propranolol, magnesium and for abortive treatment of sumatriptan, zolmitriptan and eletriptan with poor tolerance to them. She is 29 yo and had two children. She got an IUD implanted last week. Past Medical History: 1) Low Back Pain (SCT [id number]) 2) Tinnitus (SCT [id number]) 3) Migraine with Aura ([facility] [id number]) 4) Adjustment disorder with mixed anxiety and depressed mood 5) Hip pain 6) Anxiety ([facility] [id number]) 7) Pain of breast Allergies: Patient has answered NKA Medicines: Active Outpatient Medications (including Supplies): Active Outpatient Medications Status 1) BUSPIRONE HCL 15MG TAB TAKE ONE-HALF TABLET BY MOUTH THREE ACTIVE TIMES A DAY NEEDED DO NOT TAKE WITH GRAPEFRUIT JUICE. Indication: FOR ANXIETY 2) FLUOXETINE HCL 10MG CAP TAKE THREE CAPSULES BY MOUTH ONCE A ACTIVE DAY Indication: FOR DEPRESSION AND ANXIETY 3) MAGNESIUM OXIDE 400MG TAB TAKE ONE TABLET BY MOUTH ONCE A ACTIVE DAY Indication: FOR MIGRAINE PREVENTION 4) TRAZODONE HCL 50MG TAB TAKE ONE-HALF TABLET BY MOUTH AT ACTIVE BEDTIME FOR Indication: INSOMNIA 5) ZOLMITRIPTAN 2.5MG TAB PKG 6 TAKE TWO TABLETS BY MOUTH ACTIVE ONE-TIME TAKE AT ONSET OF HEADACHE; MAY REPEAT IN 2 HRS IF NEEDED (DO NOT EXCEED 10MG IN 24 HOUR PERIOD) Indication: FOR MIGRAINE HEADACHE Review of Systems: No recent changes in chronic conditions in particular in terms of the mood disorder. Physical Examination: BP110/74 (03/16/2024 09:14), HR 84 (03/16/2024 09:14) Neurological Examination: The patient is alert and fully oriented, cooperative and follows commands. Speech and language are normal. No segmental exam performed today Assessment and Plan: Impression: History of chronic daily headache. With the use of Cefaly, transformed into intermittent migraines without aura with poor tolerance to abortive medications and poor response to the oral preventative treatments. I reviewed with her the potential pharmacological treatment options including venlafaxine and valproic acid. After discussing the options she would like to try venlafaxine as long as it is approved by psychiatry. She is on fluoxetine buspirone and trazodone. Plan and recommendations: Will ask Psych if she can be switched to venlafaxine. Alternatively will discussed using valproic acid trial Information provided about whole health in order for her to consider biofeedback as part of the headache management She will continue using the Cefaly device. Follow up plan: 4 months Time spent with patient/proxy: I personally spent 50 minutes on today's date preparing to see the patient (e.g. reviewing chart, review of tests), obtaining and/or reviewing the separately obtained history, performing a medically necessary and appropriate examination and evaluation, counseling and educating the patient/family/caregiver, ordering medications, tests, or procedures, documenting in the patient record, and communicating results to the patient/family/caregiver. Via this note, I ask Dr. Woods whether is OK to consider switchinh her to Venlafaxine from Fluoxetine as the venlfaxine can help to provide migraine prevention. /stefanie MCDUFFIE MD NEUROLOGY STAFF PHYSICIAN Signed: 12/07/2024 17:16 Receipt Acknowledged By: 12/08/2024 10:01 /stefanie RICO Staff Psychiatrist for LETIC[facility] WEIR CHUCK 12/08/2024 13:18 /ergis/ Bret Jerry Pharm.D., [facility] Clinical Pharmacist Practitioner 12/08/2024 ADDENDUM STATUS: COMPLETED I am covering for Dr. Sommers. Requesting our pharmacist's opinion, in regard to psychotropic medication combination safety question. /stefanie RICO Staff Psychiatrist Signed: 12/08/2024 10:03 Receipt Acknowledged By: 12/08/2024 13:18 /stefanie Jerry Pharm.DTrev, [facility] Clinical Pharmacist Practitioner 12/08/2024 ADDENDUM STATUS: COMPLETED I wonder if enlafaxine can replace the fluoxetine, not adding it to the current regimen /stefanie MCDUFFIE MD NEUROLOGY STAFF PHYSICIAN Signed: 12/08/2024 10:20 Receipt Acknowledged By: 12/08/2024 10:22 /tsefanie RICO Staff Psychiatrist BRET JERRY [facility] Dec 08, 2024 10:19 AM ADDENDUM: LOCAL TITLE: Addendum STANDARD TITLE: ADDENDUM DATE OF NOTE: DEC 08, 2024@10:19:33 ENTRY DATE: DEC 08, 2024@10:19:34 AUTHOR: GEOVANI MCDUFFIE EXP COSIGNER: URGENCY: STATUS: COMPLETED I wonder if enlafaxine can replace the fluoxetine, not adding it to the current regimen /regis/ GEOVANI MCDUFFIE MD NEUROLOGY STAFF PHYSICIAN Signed: 12/08/2024 10:20 Receipt Acknowledged By: 12/08/2024 10:22 /regis/ KENDALL RICO Staff Psychiatrist --- Original Document --- 12/07/24 NEUROLOGY OUTPATIENT FOLLOW UP STL: I saw today in the outpatient neurology clinic Mrs. Chavez Chief Complaint:follow up chronic daily headache History of Present Illness: Mrs. Chavez is a 29 yo lady seen in follow up from her last appointment in August. At that time, I recommended to continue using the Cefaly, order a brain MRI considering that she was describing worsening of headache with Valsalva maneuver and offered her a trial of zolmitriptan for abortive migraine in combination with magnesium daily Today November 2018 he stated that she continues doing the same. She did not tolerate the zolmitriptan because of nausea and vagal symptoms. She tried a few times. She has stated that the headaches have increased to 3-4 times a week. She continues using the Cefaly. She has been taking the magnesium 2 with no benefit. Review of records show that she has had trials of topiramate, amitriptyline, propranolol, magnesium and for abortive treatment of sumatriptan, zolmitriptan and eletriptan with poor tolerance to them. She is 29 yo and had two children. She got an IUD implanted last week. Past Medical History: 1) Low Back Pain (SCT [id number]) 2) Tinnitus (SCT [id number]) 3) Migraine with Aura ([facility] 8703971) 4) Adjustment disorder with mixed anxiety and depressed mood 5) Hip pain 6) Anxiety ([facility]CT 42219448) 7) Pain of breast Allergies: Patient has answered NKA Medicines: Active Outpatient Medications (including Supplies): Active Outpatient Medications Status 1) BUSPIRONE HCL 15MG TAB TAKE ONE-HALF TABLET BY MOUTH THREE ACTIVE TIMES A DAY NEEDED DO NOT TAKE WITH GRAPEFRUIT JUICE. Indication: FOR ANXIETY 2) FLUOXETINE HCL 10MG CAP TAKE THREE CAPSULES BY MOUTH ONCE A ACTIVE DAY Indication: FOR DEPRESSION AND ANXIETY 3) MAGNESIUM OXIDE 400MG TAB TAKE ONE TABLET BY MOUTH ONCE A ACTIVE DAY Indication: FOR MIGRAINE PREVENTION 4) TRAZODONE HCL 50MG TAB TAKE ONE-HALF TABLET BY MOUTH AT ACTIVE BEDTIME FOR Indication: INSOMNIA 5) ZOLMITRIPTAN 2.5MG TAB PKG 6 TAKE TWO TABLETS BY MOUTH ACTIVE ONE-TIME TAKE AT ONSET OF HEADACHE; MAY REPEAT IN 2 HRS IF NEEDED (DO NOT EXCEED 10MG IN 24 HOUR PERIOD) Indication: FOR MIGRAINE HEADACHE Review of Systems: No recent changes in chronic conditions in particular in terms of the mood disorder. Physical Examination: BP110/74 (03/16/2024 09:14), HR 84 (03/16/2024 09:14) Neurological Examination: The patient is alert and fully oriented, cooperative and follows commands. Speech and language are normal. No segmental exam performed today Assessment and Plan: Impression: History of chronic daily headache. With the use of Cefaly, transformed into intermittent migraines without aura with poor tolerance to abortive medications and poor response to the oral preventative treatments. I reviewed with her the potential pharmacological treatment options including venlafaxine and valproic acid. After discussing the options she would like to try venlafaxine as long as it is approved by psychiatry. She is on fluoxetine buspirone and trazodone. Plan and recommendations: Will ask Psych if she can be switched to venlafaxine. Alternatively will discussed using valproic acid trial Information provided about whole health in order for her to consider biofeedback as part of the headache management She will continue using the Cefaly device. Follow up plan: 4 months Time spent with patient/proxy: I personally spent 50 minutes on today's date preparing to see the patient (e.g. reviewing chart, review of tests), obtaining and/or reviewing the separately obtained history, performing a medically necessary and appropriate examination and evaluation, counseling and educating the patient/family/caregiver, ordering medications, tests, or procedures, documenting in the patient record, and communicating results to the patient/family/caregiver. Via this note, I ask Dr. Woods whether is OK to consider switchinh her to Venlafaxine from Fluoxetine as the venlfaxine can help to provide migraine prevention. /regis/ GEOVANI MCDUFFIE MD NEUROLOGY STAFF PHYSICIAN Signed: 12/07/2024 17:16 Receipt Acknowledged By: 12/08/2024 10:01 /regis/ KENDALL RICO Staff Psychiatrist for LETICIA WEIR VINNIEJuan * AWAITING SIGNATURE * BRET JERRY 12/08/2024 ADDENDUM STATUS: COMPLETED I am covering for Dr. Sommers. Requesting our pharmacist's opinion, in regard to psychotropic medication combination safety question. /regis/ KENDALL RICO Staff Psychiatrist Signed: 12/08/2024 10:03 GEOVANI MCDUFFIE [facility] Dec 08, 2024 10:01 AM ADDENDUM: LOCAL TITLE: Addendum STANDARD TITLE: ADDENDUM DATE OF NOTE: DEC 08, 2024@10:01:47 ENTRY DATE: DEC 08, 2024@10:01:48 AUTHOR: KENDALL RICO EXP COSIGNER: URGENCY: STATUS: COMPLETED I am covering for Dr. Sommers. Requesting our pharmacist's opinion, in regard to psychotropic medication combination safety question. /regis/ KENDALL RICO Staff Psychiatrist Signed: 12/08/2024 10:03 Receipt Acknowledged By: 12/08/2024 13:18 /regis/ Bret Jerry Pharm.Dwight, [facility] Clinical Pharmacist Practitioner --- Original Document --- 12/07/24 NEUROLOGY OUTPATIENT FOLLOW UP STL: I saw today in the outpatient neurology clinic Mrs. Chavez Chief Complaint:follow up chronic daily headache History of Present Illness: Mrs. Chavez is a 29 yo lady seen in follow up from her last appointment in August. At that time, I recommended to continue using the Cefaly, order a brain MRI considering that she was describing worsening of headache with Valsalva maneuver and offered her a trial of zolmitriptan for abortive migraine in combination with magnesium daily Today November 2018 he stated that she continues doing the same. She did not tolerate the zolmitriptan because of nausea and vagal symptoms. She tried a few times. She has stated that the headaches have increased to 3-4 times a week. She continues using the Cefaly. She has been taking the magnesium 2 with no benefit. Review of records show that she has had trials of topiramate, amitriptyline, propranolol, magnesium and for abortive treatment of sumatriptan, zolmitriptan and eletriptan with poor tolerance to them. She is 29 yo and had two children. She got an IUD implanted last week. Past Medical History: 1) Low Back Pain (SCT [id number]) 2) Tinnitus (SCT 58916603) 3) Migraine with Aura (SCT 2615553) 4) Adjustment disorder with mixed anxiety and depressed mood 5) Hip pain 6) Anxiety (SCT 41480252) 7) Pain of breast Allergies: Patient has answered NKA Medicines: Active Outpatient Medications (including Supplies): Active Outpatient Medications Status 1) BUSPIRONE HCL 15MG TAB TAKE ONE-HALF TABLET BY MOUTH THREE ACTIVE TIMES A DAY NEEDED DO NOT TAKE WITH GRAPEFRUIT JUICE. Indication: FOR ANXIETY 2) FLUOXETINE HCL 10MG CAP TAKE THREE CAPSULES BY MOUTH ONCE A ACTIVE DAY Indication: FOR DEPRESSION AND ANXIETY 3) MAGNESIUM OXIDE 400MG TAB TAKE ONE TABLET BY MOUTH ONCE A ACTIVE DAY Indication: FOR MIGRAINE PREVENTION 4) TRAZODONE HCL 50MG TAB TAKE ONE-HALF TABLET BY MOUTH AT ACTIVE BEDTIME FOR Indication: INSOMNIA 5) ZOLMITRIPTAN 2.5MG TAB PKG 6 TAKE TWO TABLETS BY MOUTH ACTIVE ONE-TIME TAKE AT ONSET OF HEADACHE; MAY REPEAT IN 2 HRS IF NEEDED (DO NOT EXCEED 10MG IN 24 HOUR PERIOD) Indication: FOR MIGRAINE HEADACHE Review of Systems: No recent changes in chronic conditions in particular in terms of the mood disorder. Physical Examination: BP110/74 (03/16/2024 09:14), HR 84 (03/16/2024 09:14) Neurological Examination: The patient is alert and fully oriented, cooperative and follows commands. Speech and language are normal. No segmental exam performed today Assessment and Plan: Impression: History of chronic daily headache. With the use of Cefaly, transformed into intermittent migraines without aura with poor tolerance to abortive medications and poor response to the oral preventative treatments. I reviewed with her the potential pharmacological treatment options including venlafaxine and valproic acid. After discussing the options she would like to try venlafaxine as long as it is approved by psychiatry. She is on fluoxetine buspirone and trazodone. Plan and recommendations: Will ask Psych if she can be switched to venlafaxine. Alternatively will discussed using valproic acid trial Information provided about whole health in order for her to consider biofeedback as part of the headache management She will continue using the Cefaly device. Follow up plan: 4 months Time spent with patient/proxy: I personally spent 50 minutes on today's date preparing to see the patient (e.g. reviewing chart, review of tests), obtaining and/or reviewing the separately obtained history, performing a medically necessary and appropriate examination and evaluation, counseling and educating the patient/family/caregiver, ordering medications, tests, or procedures, documenting in the patient record, and communicating results to the patient/family/caregiver. Via this note, I ask Dr. Woods whether is OK to consider switchinh her to Venlafaxine from Fluoxetine as the venlfaxine can help to provide migraine prevention. /regis/ GEOVANI MCDUFFIE MD NEUROLOGY STAFF PHYSICIAN Signed: 12/07/2024 17:16 Receipt Acknowledged By: 12/08/2024 10:01 /regis/ KENDALL RICO Staff Psychiatrist for LETICIA WOODS 12/08/2024 13:18 /regis/ Bret Jerry, Pharm.D., [facility] Clinical Pharmacist Practitioner 12/08/2024 ADDENDUM STATUS: COMPLETED I wonder if enlafaxine can replace the fluoxetine, not adding it to the current regimen /regis/ GEOVANI MCDUFFIE MD NEUROLOGY STAFF PHYSICIAN Signed: 12/08/2024 10:20 Receipt Acknowledged By: 12/08/2024 10:22 /regis/ KENDALL RICO Staff Psychiatrist 12/08/2024 ADDENDUM STATUS: UNSIGNED You may not VIEW this UNSIGNED Addendum. KENDALL RICO [facility] Dec 07, 2024 09:10 AM NEUROLOGY OUTPATIE NT NOTE: LOCAL TITLE: NEUROLOGY OUTPATIENT FOLLOW UP STL STANDARD TITLE: NEUROLOGY OUTPATIENT NOTE DATE OF NOTE: DEC 07, 2024@09:10 ENTRY DATE: DEC 07, 2024@09:10:31 AUTHOR: GEOVANI MCDUFFIE EXP COSIGNER: URGENCY: STATUS: COMPLETED NEUROLOGY OUTPATIENT FOLLOW UP STL Has ADDENDA I saw today in the outpatient neurology clinic Mrs. Chavez Chief Complaint:follow up chronic daily headache History of Present Illness: Mrs. Chavez is a 29 yo lady seen in follow up from her last appointment in August. At that time, I recommended to continue using the Cefaly, order a brain MRI considering that she was describing worsening of headache with Valsalva maneuver and offered her a trial of zolmitriptan for abortive migraine in combination with magnesium daily Today November 2018 he stated that she continues doing the same. She did not tolerate the zolmitriptan because of nausea and vagal symptoms. She tried a few times. She has stated that the headaches have increased to 3-4 times a week. She continues using the Cefaly. She has been taking the magnesium 2 with no benefit. Review of records show that she has had trials of topiramate, amitriptyline, propranolol, magnesium and for abortive treatment of sumatriptan, zolmitriptan and eletriptan with poor tolerance to them. She is 29 yo and had two children. She got an IUD implanted last week. Past Medical History: 1) Low Back Pain ([facility] [id number]) 2) Tinnitus ([facility] [id number]) 3) Migraine with Aura ([facility] 3129621) 4) Adjustment disorder with mixed anxiety and depressed mood 5) Hip pain 6) Anxiety ([facility] 96438961) 7) Pain of breast Allergies: Patient has answered NKA Medicines: Active Outpatient Medications (including Supplies): Active Outpatient Medications Status 1) BUSPIRONE HCL 15MG TAB TAKE ONE-HALF TABLET BY MOUTH THREE ACTIVE TIMES A DAY NEEDED DO NOT TAKE WITH GRAPEFRUIT JUICE. Indication: FOR ANXIETY 2) FLUOXETINE HCL 10MG CAP TAKE THREE CAPSULES BY MOUTH ONCE A ACTIVE DAY Indication: FOR DEPRESSION AND ANXIETY 3) MAGNESIUM OXIDE 400MG TAB TAKE ONE TABLET BY MOUTH ONCE A ACTIVE DAY Indication: FOR MIGRAINE PREVENTION 4) TRAZODONE HCL 50MG TAB TAKE ONE-HALF TABLET BY MOUTH AT ACTIVE BEDTIME FOR Indication: INSOMNIA 5) ZOLMITRIPTAN 2.5MG TAB PKG 6 TAKE TWO TABLETS BY MOUTH ACTIVE ONE-TIME TAKE AT ONSET OF HEADACHE; MAY REPEAT IN 2 HRS IF NEEDED (DO NOT EXCEED 10MG IN 24 HOUR PERIOD) Indication: FOR MIGRAINE HEADACHE Review of Systems: No recent changes in chronic conditions in particular in terms of the mood disorder. Physical Examination: BP110/74 (03/16/2024 09:14), HR 84 (03/16/2024 09:14) Neurological Examination: The patient is alert and fully oriented, cooperative and follows commands. Speech and language are normal. No segmental exam performed today Assessment and Plan: Impression: History of chronic daily headache. With the use of Cefaly, transformed into intermittent migraines without aura with poor tolerance to abortive medications and poor response to the oral preventative treatments. I reviewed with her the potential pharmacological treatment options including venlafaxine and valproic acid. After discussing the options she would like to try venlafaxine as long as it is approved by psychiatry. She is on fluoxetine buspirone and trazodone. Plan and recommendations: Will ask Psych if she can be switched to venlafaxine. Alternatively will discussed using valproic acid trial Information provided about whole health in order for her to consider biofeedback as part of the headache management She will continue using the Cefaly device. Follow up plan: 4 months Time spent with patient/proxy: I personally spent 50 minutes on today's date preparing to see the patient (e.g. reviewing chart, review of tests), obtaining and/or reviewing the separately obtained history, performing a medically necessary and appropriate examination and evaluation, counseling and educating the patient/family/caregiver, ordering medications, tests, or procedures, documenting in the patient record, and communicating results to the patient/family/caregiver. Via this note, I ask Dr. Woods whether is OK to consider switchinh her to Venlafaxine from Fluoxetine as the venlfaxine can help to provide migraine prevention. /stefanie MCDUFFIE MD NEUROLOGY STAFF PHYSICIAN Signed: 12/07/2024 17:16 Receipt Acknowledged By: 12/08/2024 10:01 /stefanie RICO Staff Psychiatrist for LETICIA WEIR CHUCK 12/08/2024 13:18 /stefanie Jerry Pharm.D., [facility] Clinical Pharmacist Practitioner 12/08/2024 ADDENDUM STATUS: COMPLETED I am covering for Dr. Sommers. Requesting our pharmacist's opinion, in regard to psychotropic medication combination safety question. /stefanie RICO Staff Psychiatrist Signed: 12/08/2024 10:03 Receipt Acknowledged By: 12/08/2024 13:18 /stefanie Jerry Pharm.D., [facility] Clinical Pharmacist Practitioner 12/08/2024 ADDENDUM STATUS: COMPLETED I wonder if enlafaxine can replace the fluoxetine, not adding it to the current regimen /stefanie MCDUFFIE MD NEUROLOGY STAFF PHYSICIAN Signed: 12/08/2024 10:20 Receipt Acknowledged By: 12/08/2024 10:22 /stefanie RICO Staff Psychiatrist 12/08/2024 ADDENDUM STATUS: COMPLETED The patient's MH medications including fluoxetine for 30 days supply have not been filled since April 2024. It is unlikely the patient is adherent with the current regimen. The last [facility] note in April 2024 reported she was stable on the current regimen. No documented past trials of venlafaxine found. The patient was not deemed to be at high risk, no past psychiatric hospitalizations or SI noted. If the patient wishes to trial venlafaxine for headache then recommend DC of fluoxetine and change to venlafaxine. Given the refill history and additionally fluoxetines long half life a direct switch would be reasonable. /regis/ Pharm. FitzD., [facility] Clinical Pharmacist Practitioner Signed: 12/08/2024 13:25 Receipt Acknowledged By: * AWAITING SIGNATURE * GEOVANI MCDUFFIE * AWAITING SIGNATURE * KENDALL RICO [facility]
[2025-04-20 00:30] VITALS: BP 112/73; PULSE 84; TEMP 36.6; O2SAT 100
--- OUTSIDE RECORDS SUMMARY | 2025-04-20 01:15 | XMS_ITS | Referral Summary ---
Author Organization [facility] [address] Address [address] [place] [id number] Care Team Providers Care Marketing Professor Name Role Phone Tavo Genao MD Primary Care Provider Allergies Active Allergy Reactions Criticality Noted Date [...] Comments Blood Pressure 108/68 11/24/2023 3:33 PM CHEF DE FROID Pulse 68 11/24/2023 3:33 PM [facility]F [facility]OID Temperature 36.4 C (97.5 F) 11/24/2023 3:33 PM [facility]F DE FROID Respiratory Rate 18 11/24/2023 3:33 PM [facility]OID Oxygen Saturation 98% 11/24/2023 3:33 PM CHEF [facility]OID Inhaled Oxygen Concentration - - Weight 73.6 kg (162 lb 3.2 oz) 11/24/2023 3:33 P M CHEF DE FROID Height 160 cm (5' 2.99) 09/11/2022 9:03 AM CDT Body Mass Index 28.74 09/11/2022 9:03 AM CDT Plan of Treatment Not on file Insurance ID[place] Care Teams Marketing Professor Relationship Specialty Start Date End Date Tavo Genao MD PCP - General Family Medicine 08/27/21
--- OUTSIDE RECORDS SUMMARY | 2025-04-20 01:15 | XMS_ITS | Clinical Summary ---
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
--- OUTSIDE RECORDS SUMMARY | 2025-04-20 01:15 | XMS_ITS | Clinical Summary ---
Author Organization [facility] Address [address] [place] [address] Care Team Providers Care Rn Long Term Care Name Role Phone Cece Tillman Primary Care Provider [phone] Source Comments [facility],non-owned Affiliates and Associated Physician Practices is amultiple site organization consisting of ambulatory clinics and hospital sitesin [place]. This disclosure is being madepursuant to the Care Everywhere program and may not contain all information available regarding this patient. 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
[2025-04-20 01:21] VITALS: BP 103/66; PULSE 79; RESP 18; TEMP 36.6; O2SAT 98
[2025-04-20] MEDS: diazePAM INJ (*CRX) 10 MG/2 ML SYRINGE 5 MG IM (01:40)
[2025-04-20] MEDS: HYDROmorphone HCL INJ (*CRX) 2 MG/ML VIAL 1 MG IV PUSH (01:40)
--- NOTE | 2025-04-20 02:06 | ED.GENADULT ---
HPI - General Adult General Chief complaint: Extremity Injury, Lower Stated complaint: R knee injury Time Seen by Provider: 04/20/25 01:03 History of Present Illness HPI narrative: This is a 29-year-old female history of chronic knee pain presenting with a locked knee. 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 It then became locked in a flexed position. It is painful to movement she is unable to straighten her leg. No other injuries. No loss of sensation to the foot no signs of dislocation or sliding of the joint. She has had this occur in the past and it usually resolves on its own with some time Related Data Allergies Allergy/AdvReac Type Severity Reaction Status Date / Time No Known Allergies Allergy Verified 04/20/25 00:23 Exam Narrative: APPEARANCE: No apparent distress. Head: atraumatic. EYES: EOMI, NOSE: Atraumatic NECK: Trachea midline RESPIRATORY: No increased rate of breathing CARDIOVASCULAR: RRR, ABDOMINAL: Non-distended MUSCULOSKELETAl: Focal exam of the right knee shows that the right knee is locked in almost complete flexion. No deformities bruising or swelling. Foot is neurovascularly intact. NEURO: Alert. Moving 4/4 extremities SKIN:: Warm, dry. Normal color PSYCHIATRIC: Normal affect Course Vital Signs Vital signs: Vital Signs Temperature 97.9 F 04/20/25 00:30 Pulse Rate 84 04/20/25 00:30 Blood Pressure 112/73 04/20/25 00:30 Pulse Oximetry 100 04/20/25 00:30 Oxygen Delivery Room Air 04/20/25 00:30 Temperature 97.9 F 04/20/25 01:21 Pulse Rate 79 04/20/25 01:21 Respiratory Rate 18 04/20/25 01:21 Blood Pressure 103/66 04/20/25 01:21 Pulse Oximetry 98 04/20/25 01:21 Oxygen Delivery Room Air 04/20/25 01:21 Medical Decision Making [facility] Narrative Medical decision making narrative: -Course: 29-year-old female with chronic knee pain presenting with a locked knee. She was given Dilaudid and Valium were able to extend her knee back to the normal location. On exam the knee is essentially normal with no overlying skin changes/ bruising/ swelling. All compartments are soft and the foot is neurovascularly intact. My interpretation of the x-ray does not show any fractures but over refill occur in the a.m.. Patient will be discharged to follow-up with orthopedics. She will be provided crutches and will be weight-bearing as tolerated. -DDX includes but is not limited to: Ligament damage, pseudo knee locking, patellar mal- tracking Vital Signs Vital Signs: Vital Signs Temperature 97.9 F 04/20/25 00:30 Pulse Rate 84 04/20/25 00:30 Blood Pressure 112/73 04/20/25 00:30 Pulse Oximetry 100 04/20/25 00:30 Oxygen Delivery Room Air 04/20/25 00:30 Temperature 97.9 F 04/20/25 01:21 Pulse Rate 79 04/20/25 01:21 Respiratory Rate 18 04/20/25 01:21 Blood Pressure 103/66 04/20/25 01:21 Pulse Oximetry 98 04/20/25 01:21 Oxygen Delivery Room Air 04/20/25 01:21 Discharge Plan Discharge Clinical Impression: Acute knee pain Patient Disposition: Home Condition: Stable Instructions: Antibiotic Form, Knee Pain (ED) Additional Instructions: You were seen in the emergency department for a locked knee. You can weight bear as tolerated. Use crutches as needed. Please follow-up with the orthopedic surgeon listed below for further evaluation. If you develop severe pain or inability to move her leg please return to the ED. Patient Language: Nepali Prescriptions: New ibuprofen 800 mg tablet 800 mg PO TID PRN (Reason: pain) 7 Days Qty: 21 0RF acetaminophen 500 mg tablet 1,000 mg PO TID PRN (Reason: [place]) 7 Days Qty: 42 0RF Follow-up/Referrals: Chadwick,Tavo Cuellar MD [Primary Care Provider] - Arcenio Guzman MD [Physician] - 1 Week (Locked knee )
[2025-04-20 02:39] VITALS: BP 123/76; PULSE 67; RESP 18; O2SAT 95
== END 2025-04-20 02:39 | disposition home or self-care (01) ==
PROVIDERS: Emergency Provider Emergency Medicine; PCP Family Medicine
DX: M25.561 Pain in right knee (principal); X50.0XXA Overexertion from strenuous movement or load, initial encounter; Y93.75 Activity, martial arts
CPT/HCPCS: 73564; 96372; 96374; 99284; J1171; J3360